=== PATIENT | female | born 1990 | race Caucasian/White ===

== ENCOUNTER 2016-06-25 23:13 | Outpatient (CLI) | payer OTHER ==
[~2016-06-25] VITALS: Ht 172.7 cm; Wt 84.1 kg
[~2016-06-25 23:13] MED LIST: NORCO 325 MG-51 TAB PO; NORCO 325 MG-7.1 TAB PO
[2016-06-25 23:24] VITALS: BP 115/62; PULSE 11; TEMP 98.3
[2016-06-25] MEDS ORDERED: PRENATAL PO (23:37)
[2016-06-25] MEDS ORDERED: ULTRAM 50MG TAB50 MG PO (23:39)
[2016-06-25] MEDS ORDERED: PREVACID24HROTC PO (23:39)
[2016-06-26] VITALS: BP 115/62; PULSE 111; TEMP 98.3
[2016-06-26 00:29] LABS: PH 6 (5-8); URINE APPEARANCE Hazy; URINE BACTERIA None Seen /hpf; URINE BILIRUBIN Negative (NEGATIVE); URINE BLOOD Negative (NEGATIVE); URINE COLOR Yellow; URINE GLUCOSE Negative (NEGATIVE); URINE KETONE Negative (NEGATIVE); URINE RBC 0-2 /hpf; URINE UROBILINOGEN Negative (NEGATIVE)
[2016-06-26 01:03] VITALS: BP 105/57; PULSE 80
[2016-06-26] MEDS ORDERED: CEPHALEXIN500 M1 PO (01:12)
== END 2016-06-26 01:25 | disposition home or self-care (01) ==
LOC: LDRO 23:13
PROVIDERS: Obstetrics & Gynecology
DX: O47.1 False labor at or after 37 completed weeks of gestation (principal); Z3A.37 37 weeks gestation of pregnancy
CPT/HCPCS: J0696

== ENCOUNTER 2016-07-08 07:18 | Inpatient (IN) | payer OTHER ==
[~2016-07-08] VITALS: Ht 172.7 cm; Wt 86.8 kg
[2016-07-08] VITALS (28 sets, daily range): BP systolic 106–131; BP diastolic 57–78; PULSE 53–96; TEMP 98.1–98.2
[~2016-07-08 07:18] MED LIST changes: +CEPHALEXIN500 M1 PO; +PRENATAL PO; +PREVACID24HROTC PO; +ULTRAM 50MG TAB50 MG PO
[2016-07-08 08:28] LABS: BASO % 0.2 % (0.0-2.0); EOS % 0.2 % (0-4.0); GRAN # 7.6 (1.4-6.5); GRAN % 62.9 % (42.2-75.2); LYMPH # 3.5 (1.2-3.4); LYMPH % 28.7 % (20.0-51.0); MEAN CELL VOLUME 81 fl (80.0-100.0); MEAN CORPUSCULAR HGB CONC 32 g/dl (33.0-37.0); MEAN PLATELET VOLUME 11.9 fl (7.4-10.4); MONO # 0.9 (0.1-0.6); MONO % 7.7 % (1.7-9.3); PLATELET COUNT 197 K/mm3 (130-400); RED BLOOD COUNT 4.08 M/mm3 (4.10-5.30); REDCELL DISTRIBUTION WIDTH-CV 13.6 % (11.5-14.5); WHITE BLOOD COUNT 12.2 K/mm3 (4.8-10.8)
[2016-07-08 08:29] LABS: HEMOGLOBIN 10.7 g/dl (12.5-16.0); MEAN CORPUSCULAR HEMOGLOBIN 26 pg (27.0-31.0)
[2016-07-09 00:18] VITALS: BP 110/68; PULSE 78; TEMP 98.3
[2016-07-09 04:00] VITALS: BP 123/63; PULSE 78; TEMP 98.4
[2016-07-09 07:50] VITALS: BP 112/66; PULSE 91; TEMP 98.1
[2016-07-09 16:40] VITALS: BP 120/49; PULSE 90; TEMP 98.2
[2016-07-09 21:00] VITALS: BP 135/62; PULSE 75; TEMP 98
[2016-07-10 08:01] VITALS: BP 121/64; PULSE 64; TEMP 98.4
[2016-07-10] MEDS ORDERED: PERCOCET 325 MG1 TA2 PO (08:13)
[2016-07-10] MEDS ORDERED: IBU800 M1 PO (08:13)
[2016-07-10 15:30] VITALS: BP 135/72; PULSE 79; TEMP 98.5
== END 2016-07-10 19:45 | disposition home or self-care (01) | DRG 775 ==
LOC: LDR 07:18 → OB 13:02 → EDSTATUS 07-15 06:56 → LDRO 07-15 11:11
PROVIDERS: Obstetrics & Gynecology
PROC: 10E0XZZ Delivery of Products of Conception, External Approach (ICD-10-PCS; principal; 2016-07-08)
PROC: 3E033VJ Introduction of Other Hormone into Peripheral Vein, Percutaneous Approach (ICD-10-PCS; 2016-07-08)
DX: O99.334 Smoking (tobacco) complicating childbirth (principal); F17.210 Nicotine dependence, cigarettes, uncomplicated; Z3A.39 39 weeks gestation of pregnancy; Z37.0 Single live birth
CPT/HCPCS: J2590; J2795; J7120

== ENCOUNTER 2016-07-17 13:12 | Emergency (ER) | payer OTHER ==
[~2016-07-17] VITALS: Ht 170.2 cm; Wt 80.5 kg
[~2016-07-17 13:12] MED LIST changes: +IBU800 M1 PO; +PERCOCET 325 MG1 TA2 PO
[2016-07-17 13:14] VITALS: TEMP 98.3
[2016-07-17] MEDS ORDERED: ZOFRAN8 MG PO (13:24)
[2016-07-17 14:10] LABS: BASO % 0.2 % (0.0-2.0); EOS # 0.1 (0.0-0.7); EOS % 0.4 % (0-4.0); GRAN # 7.9 (1.4-6.5); HEMATOCRIT 41.5 % (37.0-47.0); LYMPH # 2.7 (1.2-3.4); LYMPH % 23.9 % (20.0-51.0); MEAN CELL VOLUME 82 fl (80.0-100.0); MEAN CORPUSCULAR HEMOGLOBIN 26 pg (27.0-31.0); MEAN CORPUSCULAR HGB CONC 31 g/dl (33.0-37.0); MEAN PLATELET VOLUME 9.7 fl (7.4-10.4); MONO # 0.7 (0.1-0.6); MONO % 6.1 % (1.7-9.3); PLATELET COUNT 411 K/mm3 (130-400); RED BLOOD COUNT 5.07 M/mm3 (4.10-5.30); WHITE BLOOD COUNT 11.4 K/mm3 (4.8-10.8)
[2016-07-17 14:30] LABS: ADJUSTED CALCIUM 9.6 mg/dL (8.4-10.2); ALBUMIN 4.3 gm/dL (3.5-5.0); BILIRUBIN,TOTAL 0.6 mg/dL (0.0-1.0); C-REACTIVE PROTEIN 1.8 mg/dL (0.0-0.9); CALCIUM 9.8 mg/dL (8.4-10.2); CREATININE, serum 0.52 mg/dL (0.52-1.25); POTASSIUM 3.9 mmol/L (3.4-5.0); TOTAL PROTEIN 8.1 gm/dL (6.4-8.2)
[2016-07-17] MEDS ORDERED: PERCOCET 325 MG1 TA2 PO (15:45)
[2016-07-17 15:56] VITALS: BP 119/66; PULSE 90
== END 2016-07-17 15:56 | disposition home or self-care (01) ==
LOC: COL.ER 13:12
PROVIDERS: Nurse Practitioner
DX: O99.89 Other specified diseases and conditions complicating pregnancy, childbirth and the puerperium (principal); R10.2 Pelvic and perineal pain; M54.9 Dorsalgia, unspecified; G89.29 Other chronic pain

== ENCOUNTER 2016-10-07 18:01 | Emergency (ER) | payer OTHER ==
[~2016-10-07] VITALS: Ht 170.2 cm; Wt 79.5 kg
[~2016-10-07 18:01] MED LIST changes: +ZOFRAN8 MG PO
[2016-10-07 18:09] VITALS: TEMP 98.5
[2016-10-07] MEDS ORDERED: PERCOCET 325 MG1 TA2 PO (18:34)
[2016-10-07 18:59] VITALS: BP 114/97; PULSE 90
== END 2016-10-07 19:00 | disposition home or self-care (01) ==
LOC: COL.ER 18:01
DX: M54.5 Low back pain (principal)
CPT/HCPCS: J2270

== ENCOUNTER 2016-10-09 15:11 | Emergency (ER) | payer OTHER ==
[~2016-10-09] VITALS: Ht 170.2 cm; Wt 81.8 kg
[2016-10-09 15:13] VITALS: BP 120/65; TEMP 98.8
[2016-10-09] MEDS ORDERED: ROBAXIN 75750 MG/TAB PO (16:51)
[2016-10-09 17:21] VITALS: PULSE 76
== END 2016-10-09 17:23 | disposition home or self-care (01) ==
LOC: COL.ER 15:11
DX: M54.42 Lumbago with sciatica, left side (principal); G89.29 Other chronic pain
CPT/HCPCS: J1040

== ENCOUNTER 2016-11-03 12:46 | Emergency (ER) | payer OTHER ==
[~2016-11-03] VITALS: Ht 170.2 cm; Wt 79.5 kg
[~2016-11-03 12:46] MED LIST changes: +ROBAXIN 75750 MG/TAB PO
[2016-11-03 12:51] VITALS: TEMP 98
[2016-11-03 13:14] LABS: PH 7 (5-8); SQUAMOUS EPITHELIAL 0-2 /hpf; URINE APPEARANCE Hazy; URINE BACTERIA None Seen /hpf; URINE BILIRUBIN Negative (NEGATIVE); URINE BLOOD 3+ (NEGATIVE); URINE COLOR Yellow; URINE GLUCOSE Negative (NEGATIVE); URINE KETONE Negative (NEGATIVE); URINE RBC >50 /hpf; URINE UROBILINOGEN Negative (NEGATIVE)
[2016-11-03 13:15] LABS: URINE WBC 20-50 /hpf
[2016-11-03 13:32] LABS: BASO % 0.4 % (0.0-2.0); EOS # 0.1 (0.0-0.7); EOS % 0.5 % (0-4.0); GRAN # 5.8 (1.4-6.5); GRAN % 62.2 % (42.2-75.2); HEMATOCRIT 37.1 % (37.0-47.0); HEMOGLOBIN 11.6 g/dl (12.5-16.0); LYMPH # 2.7 (1.2-3.4); LYMPH % 29.2 % (20.0-51.0); MEAN CELL VOLUME 82 fl (80.0-100.0); MEAN CORPUSCULAR HEMOGLOBIN 26 pg (27.0-31.0); MEAN CORPUSCULAR HGB CONC 31 g/dl (33.0-37.0); MEAN PLATELET VOLUME 9.8 fl (7.4-10.4); MONO # 0.7 (0.1-0.6); MONO % 7.4 % (1.7-9.3); PLATELET COUNT 334 K/mm3 (130-400); RED BLOOD COUNT 4.52 M/mm3 (4.10-5.30); REDCELL DISTRIBUTION WIDTH-CV 15.2 % (11.5-14.5); WHITE BLOOD COUNT 9.4 K/mm3 (4.8-10.8)
[2016-11-03 13:43] LABS: ADJUSTED CALCIUM 9.3 mg/dL (8.4-10.2); ALBUMIN 4.4 gm/dL (3.5-5.0); BILIRUBIN,TOTAL 0.3 mg/dL (0.0-1.0); CALCIUM 9.6 mg/dL (8.4-10.2); CREATININE, serum 0.55 mg/dL (0.52-1.25); POTASSIUM 3.8 mmol/L (3.4-5.0); TOTAL PROTEIN 7.7 gm/dL (6.4-8.2)
[2016-11-03] MEDS ORDERED: BACTRIM DS 8001 TAB PO (15:32)
[2016-11-03] MEDS ORDERED: PYRIDIUM200 M1 PO (15:32)
[2016-11-03] MEDS ORDERED: ZOFRAN 4MG T4 MG/TAB PO (15:32)
[2016-11-03] MEDS ORDERED: PERCOCET 325 MG1 TA2 PO (15:32)
[2016-11-03 15:59] VITALS: BP 120/70; PULSE 56
== END 2016-11-03 16:14 | disposition home or self-care (01) ==
LOC: COL.ER 12:46
PROVIDERS: Nurse Practitioner
DX: N12 Tubulo-interstitial nephritis, not specified as acute or chronic (principal); F17.210 Nicotine dependence, cigarettes, uncomplicated; Z87.442 Personal history of urinary calculi; Z32.02 Encounter for pregnancy test, result negative
CPT/HCPCS: J0696; J1170; J1885; J2405; J3010; J7030; Q9967

== ENCOUNTER 2016-11-05 13:44 | Emergency (ER) | payer OTHER ==
[~2016-11-05] VITALS: Ht 170.2 cm; Wt 80.1 kg
[~2016-11-05 13:44] MED LIST changes: +BACTRIM DS 8001 TAB PO; +PYRIDIUM200 M1 PO; +ZOFRAN 4MG T4 MG/TAB PO
[2016-11-05 13:46] VITALS: BP 110/74; TEMP 98.3
[2016-11-05 14:52] LABS: BASO % 0.3 % (0.0-2.0); EOS # 0.1 (0.0-0.7); EOS % 0.6 % (0-4.0); GRAN # 6.8 (1.4-6.5); GRAN % 68.2 % (42.2-75.2); HEMATOCRIT 40.3 % (37.0-47.0); HEMOGLOBIN 12.5 g/dl (12.5-16.0); LYMPH # 2.5 (1.2-3.4); LYMPH % 25.5 % (20.0-51.0); MEAN CELL VOLUME 83 fl (80.0-100.0); MEAN CORPUSCULAR HEMOGLOBIN 26 pg (27.0-31.0); MEAN CORPUSCULAR HGB CONC 31 g/dl (33.0-37.0); MEAN PLATELET VOLUME 9.8 fl (7.4-10.4); MONO # 0.5 (0.1-0.6); MONO % 5.1 % (1.7-9.3); PLATELET COUNT 305 K/mm3 (130-400); RED BLOOD COUNT 4.87 M/mm3 (4.10-5.30); REDCELL DISTRIBUTION WIDTH-CV 15.3 % (11.5-14.5); WHITE BLOOD COUNT 9.9 K/mm3 (4.8-10.8)
[2016-11-05 14:54] LABS: PH 6 (5-8); SQUAMOUS EPITHELIAL 0-2 /hpf; URINE APPEARANCE Clear; URINE BACTERIA None Seen /hpf; URINE BILIRUBIN Negative (NEGATIVE); URINE BLOOD 2+ (NEGATIVE); URINE COLOR Straw; URINE GLUCOSE Negative (NEGATIVE); URINE KETONE Negative (NEGATIVE); URINE RBC 0-2 /hpf; URINE UROBILINOGEN Negative (NEGATIVE); URINE WBC 0-2 /hpf
[2016-11-05 15:05] LABS: ADJUSTED CALCIUM 9.2 mg/dL (8.4-10.2); ALBUMIN 4.7 gm/dL (3.5-5.0); BILIRUBIN,TOTAL 0.5 mg/dL (0.0-1.0); CALCIUM 9.8 mg/dL (8.4-10.2); CREATININE, serum 0.55 mg/dL (0.52-1.25); POTASSIUM 4.3 mmol/L (3.4-5.0); TOTAL PROTEIN 8.3 gm/dL (6.4-8.2)
[2016-11-05 15:07] LABS: C-REACTIVE PROTEIN 0.5 mg/dL (0.0-0.9)
[2016-11-05 16:28] VITALS: PULSE 57
== END 2016-11-05 16:29 | disposition home or self-care (01) ==
LOC: COL.ER 13:44
PROVIDERS: Family Medicine
DX: R10.31 Right lower quadrant pain (principal); Z87.891 Personal history of nicotine dependence
CPT/HCPCS: J2270; J2405; J3010; J7030; Q9967

== ENCOUNTER 2016-11-10 15:21 | Emergency (ER) | payer OTHER ==
[~2016-11-10] VITALS: Ht 172.7 cm; Wt 79.5 kg
[2016-11-10 15:28] VITALS: TEMP 98.8
[2016-11-10 16:32] LABS: BASO % 0.4 % (0.0-2.0); EOS # 0.1 (0.0-0.7); EOS % 0.5 % (0-4.0); GRAN # 6.4 (1.4-6.5); GRAN % 57.9 % (42.2-75.2); HEMATOCRIT 41.6 % (37.0-47.0); HEMOGLOBIN 12.8 g/dl (12.5-16.0); LYMPH # 3.9 (1.2-3.4); LYMPH % 35.3 % (20.0-51.0); MEAN CELL VOLUME 84 fl (80.0-100.0); MEAN CORPUSCULAR HEMOGLOBIN 26 pg (27.0-31.0); MEAN CORPUSCULAR HGB CONC 31 g/dl (33.0-37.0); MEAN PLATELET VOLUME 9.8 fl (7.4-10.4); MONO # 0.6 (0.1-0.6); MONO % 5.6 % (1.7-9.3); PLATELET COUNT 364 K/mm3 (130-400); RED BLOOD COUNT 4.96 M/mm3 (4.10-5.30); REDCELL DISTRIBUTION WIDTH-CV 15.5 % (11.5-14.5)
[2016-11-10 16:41] LABS: ADJUSTED CALCIUM 9.3 mg/dL (8.4-10.2); ALBUMIN 4.9 gm/dL (3.5-5.0); BILIRUBIN,TOTAL 0.4 mg/dL (0.0-1.0); C-REACTIVE PROTEIN 0.7 mg/dL (0.0-0.9); CREATININE, serum 0.69 mg/dL (0.52-1.25); POTASSIUM 3.8 mmol/L (3.4-5.0); TOTAL PROTEIN 8.7 gm/dL (6.4-8.2)
[2016-11-10] MEDS ORDERED: ZOFRAN ODT4 MG PO (17:15)
[2016-11-10] MEDS ORDERED: ULTRAM 50MG TAB50 MG PO (17:15)
[2016-11-10 17:51] VITALS: BP 120/72; PULSE 62
== END 2016-11-10 17:52 | disposition home or self-care (01) ==
LOC: COL.ER 15:21
PROVIDERS: Emergency Medicine
DX: R10.9 Unspecified abdominal pain (principal); F17.210 Nicotine dependence, cigarettes, uncomplicated
CPT/HCPCS: J1170; J2405; J2550; J7030

== ENCOUNTER 2016-12-30 12:30 | Emergency (ER) | payer OTHER ==
[~2016-12-30] VITALS: Ht 172.7 cm; Wt 79.5 kg
[~2016-12-30 12:30] MED LIST changes: +ZOFRAN ODT4 MG PO
[2016-12-30 12:33] VITALS: BP 136/65; TEMP 99
[2016-12-30 13:11] LABS: COLLECTION METHOD CLEAN CATCH
[2016-12-30 13:39] LABS: MUCOUS Present /lpf; PH 5 (5-8); URINE APPEARANCE Cloudy; URINE BACTERIA Rare /hpf; URINE BILIRUBIN Negative (NEGATIVE); URINE BLOOD 3+ (NEGATIVE); URINE COLOR Yellow; URINE GLUCOSE Negative (NEGATIVE); URINE KETONE Negative (NEGATIVE); URINE LEUKOCYTE ESTERASE 3+ (NEGATIVE); URINE PROTEIN(semi-quant) 2+ (NEGATIVE); URINE RBC >50 /hpf; URINE UROBILINOGEN Negative (NEGATIVE)
[2016-12-30 13:40] LABS: URINE WBC >50 /hpf
[2016-12-30 14:13] LABS: BASO % 0.3 % (0.0-2.0); EOS % 0.3 % (0-4.0); GRAN # 10.1 (1.4-6.5); GRAN % 72.3 % (42.2-75.2); HEMATOCRIT 41.7 % (37.0-47.0); HEMOGLOBIN 12.8 g/dl (12.5-16.0); LYMPH # 2.7 (1.2-3.4); LYMPH % 19.4 % (20.0-51.0); MEAN CELL VOLUME 86 fl (80.0-100.0); MEAN CORPUSCULAR HEMOGLOBIN 26 pg (27.0-31.0); MEAN CORPUSCULAR HGB CONC 31 g/dl (33.0-37.0); MEAN PLATELET VOLUME 10.3 fl (7.4-10.4); MONO % 7.3 % (1.7-9.3); PLATELET COUNT 339 K/mm3 (130-400); RED BLOOD COUNT 4.88 M/mm3 (4.10-5.30)
[2016-12-30 14:24] LABS: ADJUSTED CALCIUM 9.9 mg/dL (8.4-10.2); ALBUMIN 4.3 gm/dL (3.5-5.0); BILIRUBIN,TOTAL 0.4 mg/dL (0.0-1.0); CALCIUM 10.1 mg/dL (8.4-10.2); CREATININE, serum 0.77 mg/dL (0.52-1.25); POTASSIUM 3.9 mmol/L (3.4-5.0); TOTAL PROTEIN 7.6 gm/dL (6.4-8.2)
[2016-12-30] MEDS ORDERED: PYRIDIUM200 M1 PO (14:36)
[2016-12-30 14:50] VITALS: PULSE 90
[2016-12-30] MEDS ORDERED: CIPRO 500MG TA500 MG PO (16:01)
== END 2016-12-30 14:51 | disposition home or self-care (01) ==
LOC: COL.ER 12:30
PROVIDERS: Physician Assistant Medical
DX: N39.0 Urinary tract infection, site not specified (principal); N12 Tubulo-interstitial nephritis, not specified as acute or chronic; F17.210 Nicotine dependence, cigarettes, uncomplicated; Z32.02 Encounter for pregnancy test, result negative
CPT/HCPCS: J0696; J7030

== ENCOUNTER 2017-01-01 11:28 | Emergency (ER) | payer OTHER ==
[~2017-01-01] VITALS: Ht 172.7 cm; Wt 79.5 kg
[~2017-01-01 11:28] MED LIST changes: +CIPRO 500MG TA500 MG PO
[2017-01-01 11:44] VITALS: BP 122/61; TEMP 98.9
[2017-01-01] MEDS ORDERED: ZANAFLEX CAPSULE2 MG PO (13:02)
[2017-01-01 13:24] VITALS: PULSE 88
[2017-01-01] MEDS ORDERED: CEFTIN500 MG PO (15:18)
== END 2017-01-01 13:24 | disposition home or self-care (01) ==
LOC: COL.ER 11:28
DX: S39.012A Strain of muscle, fascia and tendon of lower back, initial encounter (principal); N39.0 Urinary tract infection, site not specified; X50.0XXA Overexertion from strenuous movement or load, initial encounter
CPT/HCPCS: J2360

== ENCOUNTER 2017-01-21 20:10 | Emergency (ER) | payer OTHER ==
[~2017-01-21] VITALS: Ht 170.2 cm; Wt 87.3 kg
[~2017-01-21 20:10] MED LIST changes: +CEFTIN500 MG PO; +ZANAFLEX CAPSULE2 MG PO
[2017-01-21 20:14] VITALS: BP 123/82; TEMP 98.9
[2017-01-21 21:18] VITALS: PULSE 82
== END 2017-01-21 21:24 | disposition home or self-care (01) ==
LOC: COL.ER 20:10
DX: S50.12XA Contusion of left forearm, initial encounter (principal); W19.XXXA Unspecified fall, initial encounter; Y92.009 Unspecified place in unspecified non-institutional (private) residence as the place of occurrence of the external cause

== ENCOUNTER 2017-08-01 15:57 | Emergency (ER) | payer OTHER ==
[~2017-08-01] VITALS: Ht 172.7 cm; Wt 81.8 kg
[2017-08-01 16:00] VITALS: BP 120/51; TEMP 97.8
[2017-08-01] MEDS ORDERED: PREDNISONE20 MG PO (19:36)
[2017-08-01] MEDS ORDERED: NORCO 325 MG-51 TAB PO (19:36)
[2017-08-01] MEDS ORDERED: FLEXERIL 1010 MG/TAB PO (19:36)
[2017-08-01 20:01] VITALS: PULSE 88
== END 2017-08-01 19:58 | disposition home or self-care (01) ==
LOC: COL.ER 15:57
DX: M54.16 Radiculopathy, lumbar region (principal); F17.210 Nicotine dependence, cigarettes, uncomplicated
CPT/HCPCS: J3010; J7512

== ENCOUNTER 2017-08-16 | Emergency (ER) | payer OTHER ==
[~2017-08-16] MED LIST changes: +FLEXERIL 1010 MG/TAB PO; +PREDNISONE20 MG PO
[2017-08-16 00:13] VITALS: BP 142/64; TEMP 98.3
== END 2017-08-16 00:41 | disposition left against medical advice (07) ==
LOC: COL.ER
DX: M54.5 Low back pain (principal)

== ENCOUNTER 2017-12-03 19:08 | Emergency (ER) | payer OTHER ==
[~2017-12-03] VITALS: Ht 172.7 cm; Wt 81.8 kg
[~2017-12-03 19:08] MED LIST changes: +DOXYCYCLINE HY100 MG PO; +FLAGYL500 MG PO
[2017-12-03 19:10] VITALS: TEMP 98.6
[2017-12-03] MEDS ORDERED: PERCOCET 325 MG1 TA2 PO (20:04)
[2017-12-03 20:32] VITALS: BP 126/80; PULSE 98
== END 2017-12-03 20:33 | disposition home or self-care (01) ==
LOC: COL.ER 19:08
DX: K02.9 Dental caries, unspecified (principal); F17.210 Nicotine dependence, cigarettes, uncomplicated
CPT/HCPCS: J0561

== ENCOUNTER 2018-02-13 23:19 | Emergency (ER) | payer OTHER ==
[~2018-02-13] VITALS: Ht 172.7 cm; Wt 81.8 kg
[2018-02-13 23:22] VITALS: BP 126/35; TEMP 96.8
[2018-02-14] MEDS ORDERED: IBU400 MG PO (00:01)
[2018-02-14 00:48] VITALS: PULSE 110
== END 2018-02-14 00:51 | disposition home or self-care (01) ==
LOC: COL.ER 23:19
DX: S80.12XA Contusion of left lower leg, initial encounter (principal); W10.9XXA Fall (on) (from) unspecified stairs and steps, initial encounter

== ENCOUNTER 2018-03-25 21:32 | Emergency (ER) | payer SELFPAY ==
[~2018-03-25] VITALS: Ht 172.7 cm; Wt 81.8 kg
[~2018-03-25 21:32] MED LIST changes: +IBU400 MG PO
[2018-03-25 21:38] VITALS: BP 148/79; TEMP 98.1
[2018-03-25 21:53] LABS: COLLECTION METHOD CLEAN CATCH
[2018-03-25 22:00] LABS: PH 6 (5-8); SQUAMOUS EPITHELIAL 0-2 /hpf; URINE APPEARANCE Hazy; URINE BACTERIA None Seen /hpf; URINE BILIRUBIN Negative (NEGATIVE); URINE BLOOD 2+ (NEGATIVE); URINE COLOR Straw; URINE GLUCOSE Negative (NEGATIVE); URINE KETONE Negative (NEGATIVE); URINE LEUKOCYTE ESTERASE 1+ (NEGATIVE); URINE NITRATE Negative (NEGATIVE); URINE PROTEIN(semi-quant) Negative (NEGATIVE); URINE RBC 0-2 /hpf; URINE UROBILINOGEN Negative (NEGATIVE)
[2018-03-25 22:21] LABS: BASO # 0.1 (0.0-0.2); BASO % 0.4 % (0.0-2.0); EOS # 0.2 (0.0-0.7); EOS % 1.7 % (0-4.0); GRAN # 6.3 (1.4-6.5); GRAN % 55.9 % (42.2-75.2); HEMATOCRIT 42.7 % (37.0-47.0); HEMOGLOBIN 14.2 g/dl (12.5-16.0); LYMPH # 3.8 (1.2-3.4); LYMPH % 33.7 % (20.0-51.0); MEAN CELL VOLUME 92 fl (80.0-100.0); MEAN CORPUSCULAR HEMOGLOBIN 31 pg (27.0-31.0); MEAN CORPUSCULAR HGB CONC 33 g/dl (33.0-37.0); MEAN PLATELET VOLUME 9.7 fl (7.4-10.4); MONO # 0.9 (0.1-0.6); MONO % 7.9 % (1.7-9.3); PLATELET COUNT 309 K/mm3 (130-400); RED BLOOD COUNT 4.64 M/mm3 (4.10-5.30); REDCELL DISTRIBUTION WIDTH-CV 13.2 % (11.5-14.5)
[2018-03-25 22:31] LABS: ALBUMIN 4.5 gm/dL (3.5-5.0); BILIRUBIN,TOTAL 0.5 mg/dL (0.0-1.0); C-REACTIVE PROTEIN 1.8 mg/dL (0.0-0.9); CALCIUM 9.9 mg/dL (8.4-10.2); CREATININE, serum 0.49 mg/dL (0.52-1.25); TOTAL PROTEIN 7.9 gm/dL (6.4-8.2)
[2018-03-25 22:33] LABS: POTASSIUM 2.8 mmol/L (3.4-5.0)
[2018-03-25] MEDS ORDERED: FLEXERIL 1010 MG/TAB PO (22:54)
[2018-03-25] MEDS ORDERED: K-DUR 10 MEQ T10 MEQ PO (22:56)
[2018-03-25 23:15] VITALS: PULSE 87
== END 2018-03-25 23:15 | disposition home or self-care (01) ==
LOC: COL.ER 21:32
PROVIDERS: Emergency Medicine
DX: M54.5 Low back pain (principal); Z87.442 Personal history of urinary calculi
CPT/HCPCS: J0780; J1170; J1885; J7030

== ENCOUNTER 2018-04-23 17:40 | Emergency (ER) | payer SELFPAY ==
[~2018-04-23] VITALS: Ht 172.7 cm; Wt 81.8 kg
[~2018-04-23 17:40] MED LIST changes: +K-DUR 10 MEQ T10 MEQ PO
[2018-04-23 17:48] VITALS: BP 149/70; TEMP 98
[2018-04-23 19:32] VITALS: PULSE 109
== END 2018-04-23 19:34 | disposition home or self-care (01) ==
LOC: COL.ER 17:40
DX: S90.31XA Contusion of right foot, initial encounter (principal); Z88.5 Allergy status to narcotic agent; F17.210 Nicotine dependence, cigarettes, uncomplicated; W22.8XXA Striking against or struck by other objects, initial encounter; Y92.009 Unspecified place in unspecified non-institutional (private) residence as the place of occurrence of the external cause

== ENCOUNTER 2018-07-06 09:40 | Emergency (ER) | payer SELFPAY ==
[~2018-07-06] VITALS: Ht 172.7 cm; Wt 81.8 kg
[2018-07-06 09:52] VITALS: BP 137/69; PULSE 102; TEMP 97.6
== END 2018-07-06 10:45 | disposition left against medical advice (07) ==
LOC: COL.ER 09:40
DX: R04.0 Epistaxis (principal); Z87.442 Personal history of urinary calculi; Z88.5 Allergy status to narcotic agent

== ENCOUNTER 2019-01-16 08:03 | Emergency (ER) | payer SELFPAY ==
[~2019-01-16] VITALS: Ht 172.7 cm; Wt 89.1 kg
[2019-01-16 08:06] VITALS: TEMP 99.5
[2019-01-16] MEDS ORDERED: PRILOTC PO (08:09)
[2019-01-16 08:36] LABS: BASO # 0.1 (0.0-0.2); BASO % 0.3 % (0.0-2.0); EOS % 0.1 % (0-4.0); GRAN % 68.2 % (42.2-75.2); HEMATOCRIT 38.9 % (37.0-47.0); HEMOGLOBIN 13.2 g/dl (12.5-16.0); LYMPH # 3.1 (1.2-3.4); LYMPH % 20.7 % (20.0-51.0); MEAN CELL VOLUME 107 fl (80.0-100.0); MEAN CORPUSCULAR HEMOGLOBIN 36 pg (27.0-31.0); MEAN CORPUSCULAR HGB CONC 34 g/dl (33.0-37.0); MEAN PLATELET VOLUME 9.8 fl (7.4-10.4); MONO # 1.5 (0.1-0.6); MONO % 10.2 % (1.7-9.3); PLATELET COUNT 337 K/mm3 (130-400); RED BLOOD COUNT 3.65 M/mm3 (4.10-5.30); REDCELL DISTRIBUTION WIDTH-CV 16.3 % (11.5-14.5)
[2019-01-16 08:46] LABS: ALBUMIN 4.8 gm/dL (3.5-5.0); BILIRUBIN,TOTAL 1.6 mg/dL (0.0-1.0); CALCIUM 10.1 mg/dL (8.4-10.2); CREATININE, serum 0.48 (0.52-1.25)
[2019-01-16 08:49] LABS: POTASSIUM 2.6 mmol/L (3.4-5.0)
[2019-01-16] MEDS ORDERED: ZOFRAN ODT4 MG PO (11:19)
[2019-01-16] MEDS ORDERED: CARAFATE S1 GM/10 ML PO (11:19)
[2019-01-16] MEDS ORDERED: NORCO 325 MG-51 TAB PO (11:19)
[2019-01-16 11:38] VITALS: BP 1118/73; PULSE 84
== END 2019-01-16 11:38 | disposition home or self-care (01) ==
LOC: COL.ER 08:03
PROVIDERS: Physician Assistant
DX: K29.20 Alcoholic gastritis without bleeding (principal); K92.0 Hematemesis; F17.210 Nicotine dependence, cigarettes, uncomplicated; F10.20 Alcohol dependence, uncomplicated
CPT/HCPCS: C9113; J2405; J3480; J7030; Q9967

== ENCOUNTER 2019-01-27 00:40 | Emergency (ER) | payer SELFPAY ==
[~2019-01-27] VITALS: Ht 172.7 cm; Wt 88.6 kg
[~2019-01-27 00:40] MED LIST changes: +CARAFATE S1 GM/10 ML PO; +PRILOTC PO
[2019-01-27 00:47] VITALS: BP 125/86; TEMP 98.9
[2019-01-27] MEDS ORDERED: UROCIT-K 1010 MEQ PO (00:47)
[2019-01-27 01:58] VITALS: PULSE 108
== END 2019-01-27 01:58 | disposition home or self-care (01) ==
LOC: COL.ER 00:40
DX: S09.90XA Unspecified injury of head, initial encounter (principal); S93.401A Sprain of unspecified ligament of right ankle, initial encounter; F17.210 Nicotine dependence, cigarettes, uncomplicated; Z88.5 Allergy status to narcotic agent; W10.9XXA Fall (on) (from) unspecified stairs and steps, initial encounter

== ENCOUNTER 2019-01-29 23:08 | Emergency (ER) | payer SELFPAY ==
[~2019-01-29] VITALS: Ht 172.7 cm; Wt 88.6 kg
[~2019-01-29 23:08] MED LIST changes: +UROCIT-K 1010 MEQ PO
[2019-01-29 23:11] VITALS: BP 127/77; TEMP 97.4
[2019-01-29] MEDS ORDERED: ADVIL200 MG PO (23:27)
[2019-01-29 23:39] LABS: COLLECTION METHOD CLEAN CATCH
[2019-01-29 23:47] LABS: BASO % 0.4 % (0.0-2.0); EOS % 0.4 % (0-4.0); GRAN # 4.6 (1.4-6.5); GRAN % 50.5 % (42.2-75.2); HEMATOCRIT 34.7 % (37.0-47.0); HEMOGLOBIN 11.3 g/dl (12.5-16.0); LYMPH # 3.6 (1.2-3.4); LYMPH % 39.5 % (20.0-51.0); MEAN CELL VOLUME 106 fl (80.0-100.0); MEAN CORPUSCULAR HEMOGLOBIN 34 pg (27.0-31.0); MEAN CORPUSCULAR HGB CONC 33 g/dl (33.0-37.0); MEAN PLATELET VOLUME 9.8 fl (7.4-10.4); MONO # 0.8 (0.1-0.6); MONO % 8.9 % (1.7-9.3); PLATELET COUNT 323 K/mm3 (130-400); RED BLOOD COUNT 3.29 M/mm3 (4.10-5.30); REDCELL DISTRIBUTION WIDTH-CV 14.8 % (11.5-14.5)
[2019-01-29 23:48] LABS: MUCOUS Present /lpf; PH 7 (5-8); URINE APPEARANCE Hazy; URINE BACTERIA Occasional /hpf; URINE BILIRUBIN Negative (NEGATIVE); URINE BLOOD Negative (NEGATIVE); URINE COLOR Yellow; URINE GLUCOSE Negative (NEGATIVE); URINE KETONE Negative (NEGATIVE); URINE LEUKOCYTE ESTERASE 2+ (NEGATIVE); URINE NITRATE Negative (NEGATIVE); URINE PROTEIN(semi-quant) Negative (NEGATIVE); URINE UROBILINOGEN Negative (NEGATIVE)
[2019-01-29 23:57] LABS: ALBUMIN 3.8 gm/dL (3.5-5.0); BILIRUBIN,TOTAL 0.5 mg/dL (0.0-1.0); CALCIUM 9.1 mg/dL (8.4-10.2); CREATININE, serum 0.44 (0.52-1.25); TOTAL PROTEIN 7.2 gm/dL (6.4-8.2)
[2019-01-30 00:01] LABS: POTASSIUM 2.8 mmol/L (3.4-5.0)
[2019-01-30 00:38] LABS: MAGNESIUM 1.8 mg/dL (1.6-2.3)
[2019-01-30 01:10] LABS: THYROID STIMULATING HORMONE 2.59 uIU/mL (0.465-4.680)
[2019-01-30] MEDS ORDERED: NORCO 325 MG-51 TAB PO (01:15)
[2019-01-30 01:19] VITALS: PULSE 108
== END 2019-01-30 01:19 | disposition home or self-care (01) ==
LOC: COL.ER 23:08
PROVIDERS: Nurse Practitioner
DX: R60.0 Localized edema (principal); F17.210 Nicotine dependence, cigarettes, uncomplicated

== ENCOUNTER 2019-02-07 09:27 | Emergency (ER) | payer SELFPAY ==
[~2019-02-07] VITALS: Ht 172.7 cm; Wt 88.6 kg
[~2019-02-07 09:27] MED LIST changes: +ADVIL200 MG PO
[2019-02-07 09:37] VITALS: TEMP 96.1
[2019-02-07 10:27] LABS: BASO % 0.4 % (0.0-2.0); EOS % 0.5 % (0-4.0); GRAN # 5.1 (1.4-6.5); GRAN % 65.9 % (42.2-75.2); LYMPH # 1.9 (1.2-3.4); LYMPH % 24.3 % (20.0-51.0); MEAN CELL VOLUME 106 fl (80.0-100.0); MEAN CORPUSCULAR HEMOGLOBIN 36 pg (27.0-31.0); MEAN CORPUSCULAR HGB CONC 33 g/dl (33.0-37.0); MEAN PLATELET VOLUME 9.3 fl (7.4-10.4); MONO # 0.7 (0.1-0.6); MONO % 8.4 % (1.7-9.3); PLATELET COUNT 207 K/mm3 (130-400); REDCELL DISTRIBUTION WIDTH-CV 15.9 % (11.5-14.5)
[2019-02-07 10:30] LABS: HEMATOCRIT 32.9 % (37.0-47.0)
[2019-02-07] MEDS ORDERED: NEURONTIN300 MG/CAP PO (10:33)
[2019-02-07] MEDS ORDERED: FLEXERIL 1010 MG/TAB PO (10:33)
[2019-02-07 10:36] LABS: ALBUMIN 3.8 gm/dL (3.5-5.0); BILIRUBIN,TOTAL 1.6 mg/dL (0.0-1.0); CALCIUM 9.1 mg/dL (8.4-10.2); CREATININE, serum 0.37 (0.52-1.25); TOTAL PROTEIN 7.6 gm/dL (6.4-8.2)
[2019-02-07 10:55] LABS: POTASSIUM 2.6 mmol/L (3.4-5.0)
[2019-02-07] MEDS ORDERED: [UNRECOGNIZED DRUG - OTHER] PO (11:09)
[2019-02-07] MEDS ORDERED: K-TAB10 PO (11:16)
[2019-02-07 11:25] VITALS: BP 124/81
[2019-02-07 13:04] VITALS: PULSE 105
== END 2019-02-07 11:40 | disposition home or self-care (01) ==
LOC: COL.ER 09:27
PROVIDERS: Emergency Medicine
DX: E87.6 Hypokalemia (principal); R20.2 Paresthesia of skin; M79.604 Pain in right leg; M79.605 Pain in left leg

== ENCOUNTER 2019-02-25 16:45 | Inpatient (IN) | payer OTHER ==
[2019-02-25] VITALS (44 sets, daily range): BP systolic 109; BP diastolic 61; PULSE 99; TEMP 98.6; O2SAT 90–99
[~2019-02-25] VITALS: Ht 172.7 cm; Wt 100.1 kg
[~2019-02-25 16:45] MED LIST changes: +K-TAB10 PO; +NEURONTIN300 MG/CAP PO; -PRILOTC PO; +[UNRECOGNIZED DRUG - OTHER] PO
[2019-02-25] MEDS ORDERED: PRILOTC PO (17:15)
[2019-02-25 17:39] LABS: MEAN CELL VOLUME 104 fl (80.0-100.0); MEAN CORPUSCULAR HGB CONC 35 g/dl (33.0-37.0); MEAN PLATELET VOLUME 10.3 fl (7.4-10.4); PLATELET COUNT 293 K/mm3 (130-400); RED BLOOD COUNT 2.48 M/mm3 (4.10-5.30); REDCELL DISTRIBUTION WIDTH-CV 21.4 % (11.5-14.5)
[2019-02-25 17:40] LABS: HEMATOCRIT 25.7 % (37.0-47.0); MEAN CORPUSCULAR HEMOGLOBIN 36 pg (27.0-31.0)
[2019-02-25 17:50] LABS: ALANINE AMINOTRANSFERASE 96 U/L (9-52); ALBUMIN 4.2 gm/dL (3.5-5.0); ALKALINE PHOSPHATASE 143 U/L (50-136); ANION GAP 18 mmol/L (7-16); AST,SGOT 328 U/L (15-37); BILIRUBIN,TOTAL 8.8 mg/dL (0.0-1.0); BLOOD UREA NITROGEN 12 mg/dL (7-17); C-REACTIVE PROTEIN 7.5 mg/dL (0.0-0.9); CALCIUM 9.9 mg/dL (8.4-10.2); CARBON DIOXIDE 30 mmol/L (22-30); CREATININE, serum 0.48 (0.52-1.25); GLUCOSE 120 mg/dL (74-106); MAGNESIUM 2.5 mg/dL (1.6-2.3); PHOSPHOROUS 2.4 mg/dL (2.5-4.5); SODIUM 133 mmol/L (137-145); TOTAL PROTEIN 8.4 gm/dL (6.4-8.2)
[2019-02-25 18:02] LABS: ALCOHOL(ethanol),MEDICAL < 10 mg/dL; BILIRUBIN,DIRECT 7.1 mg/dL (0.0-0.4); CHLORIDE 86 mmol/L (98-107); POTASSIUM 2.1 mmol/L (3.4-5.0)
[2019-02-25 18:21] LABS: ANISOCYTOSIS 3+; BAND 1 % (0-10); LYMPHOCYTE 16 % (20.0-51.0); NEUTROPHILS 81 % (42.0-75.2); NUCLEATED RED BLOOD CELL 1 (0-6); PLATELET ESTIMATE NORMAL (NORMAL); TARGET CELLS 2+
[2019-02-25 19:02] LABS: COLLECTION METHOD CLEAN CATCH
[2019-02-25 19:16] LABS: INR 1.5 (0.8-3.0); PROTHROMBIN TIME 18.1 SECONDS (9.7-12.8)
[2019-02-25 19:18] LABS: LIPASE 84 U/L (23-300)
[2019-02-25 19:19] LABS: ACETAMINOPHEN < 10 ug/mL (10-30)
[2019-02-25 19:20] LABS: MUCOUS Present /lpf; PH 6 (5-8); SQUAMOUS EPITHELIAL 0-2 /hpf; URINE APPEARANCE Hazy; URINE BACTERIA Rare /hpf; URINE BILIRUBIN Positive (NEGATIVE); URINE BLOOD 2+ (NEGATIVE); URINE COLOR Amber; URINE GLUCOSE Negative (NEGATIVE); URINE KETONE Negative (NEGATIVE); URINE LEUKOCYTE ESTERASE 1+ (NEGATIVE); URINE NITRATE Negative (NEGATIVE); URINE PROTEIN(semi-quant) 1+ (NEGATIVE); URINE UROBILINOGEN >=4.0 mg/dL (NEGATIVE)
[2019-02-25 19:28] LABS: PARTIAL THROMBOPLASTIN TIME 37.1 SECONDS (26.0-37.0)
--- NOTE | 2019-02-25 22:35 | NUR ---
Report received from Bill in ED at 2200, patient arrived in unit at 2229 via stretcher. Patient able to move self to unit bed without diffuculty. IV infusing from ED. Patient pleasant and cooperative, significant other at bedside. Patient complaining of abdominal pain and nausea, provider notified.
[2019-02-26] VITALS (14 sets, daily range): BP systolic 108–124; BP diastolic 59–76; PULSE 97–108; TEMP 98.3–99.7; O2SAT 93–99
[2019-02-26] MEDS ORDERED: K-DUR 10 MEQ T10 MEQ PO (02:07)
--- NOTE | 2019-02-26 04:54 | NUR ---
Patient resting in bed with eyes closed. No complaints at this time. States she occasionally has abdominal cramping. Patient uses call light appropriately and both IV sites are infusing well. Will continue to monitor.
[2019-02-26 06:22] LABS: COLLECTION METHOD CLEAN CATCH
[2019-02-26 06:42] LABS: TRICYCLIC ANTIDEPRESS URINE NEGATIVE
[2019-02-26 06:59] LABS: PH 6 (5-8); URINE APPEARANCE Hazy; URINE BACTERIA Rare /hpf; URINE BILIRUBIN Positive (NEGATIVE); URINE BLOOD 2+ (NEGATIVE); URINE COLOR Amber; URINE GLUCOSE Negative (NEGATIVE); URINE KETONE Negative (NEGATIVE); URINE LEUKOCYTE ESTERASE 2+ (NEGATIVE); URINE NITRATE Negative (NEGATIVE); URINE PROTEIN(semi-quant) Negative (NEGATIVE)
[2019-02-26 07:00] LABS: SQUAMOUS EPITHELIAL 0-2 /hpf
--- NOTE | 2019-02-26 07:30 | NUR ---
Report received from LARS Garcia. Patient requests pain medication at this time. Care taken over.
[2019-02-26 07:47] LABS: MEAN CELL VOLUME 107 fl (80.0-100.0); MEAN CORPUSCULAR HGB CONC 34 g/dl (33.0-37.0); MEAN PLATELET VOLUME 10.5 fl (7.4-10.4); PLATELET COUNT 202 K/mm3 (130-400); RED BLOOD COUNT 2.01 M/mm3 (4.10-5.30); REDCELL DISTRIBUTION WIDTH-CV 22.1 % (11.5-14.5)
[2019-02-26 07:48] LABS: HEMATOCRIT 21.4 % (37.0-47.0); HEMOGLOBIN 7.2 g/dl (12.5-16.0); MEAN CORPUSCULAR HEMOGLOBIN 36 pg (27.0-31.0)
[2019-02-26 07:57] LABS: ALBUMIN 3.3 gm/dL (3.5-5.0); BILIRUBIN,TOTAL 7.1 mg/dL (0.0-1.0); CALCIUM 7.9 mg/dL (8.4-10.2); CREATININE, serum 0.35 (0.52-1.25); MAGNESIUM 2.4 mg/dL (1.6-2.3); PHOSPHOROUS 2.1 mg/dL (2.5-4.5); POTASSIUM 3.2 mmol/L (3.4-5.0); TOTAL PROTEIN 6.8 gm/dL (6.4-8.2)
[2019-02-26 07:58] LABS: INR 1.6 (0.8-3.0)
[2019-02-26 09:37] LABS: BAND 4 % (0-10); LYMPHOCYTE 9 % (20.0-51.0); NEUTROPHILS 87 % (42.0-75.2); PLATELET ESTIMATE NORMAL (NORMAL)
--- NOTE | 2019-02-26 11:47 | NUR ---
PATIENT CONTINUES TO COMPLAIN OF LEFT ABDOMINAL/FLANK PAIN AFTER MULTIPLE DOSES OF DILAUDID. OFFERED HEATING PAD, PATIENT REFUSED. PATIENT REPOSITIONS HERSELF FREQUENTLY. POSITIVE ENCOURAGEMENT AND EMOTIONAL SUPPORT GIVEN. DR. SHANNAN REDMOND ON UNIT AT THIS TIME. WILL UPDATE HIM WHEN HE GOES TO SEE PATIENT
--- NOTE | 2019-02-26 13:52 | NUR ---
Research Project Coordinator met with patient to discuss discharge planning. Patient lives in [place] with her boyfriend Tony (ph#[phone]) and their son. Patient reports her daughter from a previous relationship also lives with them part of the time. Patient sees Dr. Morgan for primary care at [facility] and obtains medications from [facility]. Patient does not use any DME and reports independence with ADLS. Patient met with Jamaal, Financial Counselor and it was found that patient still has active coverage from her ex-. Patient is still working to determine if she will continue under that coverage. SW encouraged patient to seek assistance from Jamaal if her coverage would be discontinued. Patient does not have Advance Directives in EMR. Patient expressed some interested in completing DPOA-HC, but did not want to do so at this time as she wanted to rest and have some time alone. SW to continue to follow as needed.
--- NOTE | 2019-02-26 16:35 | NUR ---
DR. CAMPBELL CALLED D/T PERSISTENT C/O PAIN FROM THIS PATIENT. HEATING PAD OBTAINED AND PROVIDED TO PATIENT. HE GIVES ONE TIME ORDER FOR 0.5 MG DILAUDID IV. WILL TRY THIS DOSE AND SEE HOW SHE DOES.
--- NOTE | 2019-02-26 19:29 | NUR ---
Report given to LARS Garcia at this time. Patient lying in bed. She has recently had pain medication given to her. Care turned over to Radha.
--- NOTE | 2019-02-26 21:54 | NUR ---
Patient complaining of hemmorhoid pain and bleeding, requested melissacks-aracely orders. Patient also complaining of itching, states she thinks it is from the narcotic since it happened with the last two doses she received. Notified Boo Rodriguez orders. Patient otherwise resting in bed, belongings within reach, uses call light appropriately, IV infusing well.
[2019-02-27] VITALS (8 sets, daily range): BP systolic 117–131; BP diastolic 57–81; PULSE 98–116; TEMP 97.5–98.4
--- NOTE | 2019-02-27 03:18 | NUR ---
Patient resting in bed, has had a restless night and ambulated around Express Unit x3 laps to see if it would help settle her. RAC IV site bothering patient so fluids switched to LAC, will continue to monitor but RAC saline locked at this time. Patient takes self to toilet without incident and is tolerating liquids well. Complaints of pain continue with only brief periods of relief with verbal scores of 4/10. Most commonly patient scores pain 7/10.
--- NOTE | 2019-02-27 07:10 | NUR ---
Report recieved from LARS Garcia. Patient participates. Currently rates pain 09/16. Will treat with PRN medication as reflected in MAY. MIVF infusing to uncomplicated LAC IV. Patient denies further needs. Care assumed.
[2019-02-27 07:41] LABS: MEAN CELL VOLUME 108 fl (80.0-100.0); MEAN CORPUSCULAR HGB CONC 34 g/dl (33.0-37.0); MEAN PLATELET VOLUME 9.9 fl (7.4-10.4); PLATELET COUNT 228 K/mm3 (130-400); RED BLOOD COUNT 1.86 M/mm3 (4.10-5.30); REDCELL DISTRIBUTION WIDTH-CV 22.3 % (11.5-14.5)
[2019-02-27 07:44] LABS: INR 1.2 (0.8-3.0); PROTHROMBIN TIME 13.6 SECONDS (9.7-12.8)
[2019-02-27 07:51] LABS: ALBUMIN 3.2 gm/dL (3.5-5.0); BILIRUBIN,TOTAL 8.1 mg/dL (0.0-1.0); CALCIUM 8.1 mg/dL (8.4-10.2); CREATININE, serum 0.34 (0.52-1.25); TOTAL PROTEIN 6.6 gm/dL (6.4-8.2)
[2019-02-27 07:55] LABS: IRON,SERUM 53 ug/dL (35-150)
[2019-02-27 07:57] LABS: HEMOGLOBIN 6.8 g/dl (12.5-16.0); MEAN CORPUSCULAR HEMOGLOBIN 37 pg (27.0-31.0); POTASSIUM 2.7 mmol/L (3.4-5.0)
[2019-02-27 08:04] LABS: TOTAL IRON BINDING CAPACITY 206 ug/dL (265-497)
--- NOTE | 2019-02-27 08:06 | NUR ---
Dr. Mazariegos called with critical hgb and potassium. TORB as entered. Care ongoing.
[2019-02-27 08:55] LABS: BAND 4 % (0-10); LYMPHOCYTE 8 % (20.0-51.0); NEUTROPHILS 87 % (42.0-75.2); NUCLEATED RED BLOOD CELL 2 (0-6); PLATELET ESTIMATE NORMAL (NORMAL)
[2019-02-27 08:56] LABS: ANISOCYTOSIS 2+; HYPOCHROMIA 1+; POLYCHROMASIA 1+; TARGET CELLS 2+
--- NOTE | 2019-02-27 09:07 | NUR ---
Dr. Palmer called regarding patient's continued lack of pain control. TORB for one time additional dose of dilauded as documented. Care ongoing.
--- NOTE | 2019-02-27 10:15 | NUR ---
Dr. Mazariegos rounds at this time. Orders as entered CPOE. Care ongoing.
--- NOTE | 2019-02-27 12:57 | NUR ---
Dr. Palmer rounds at this time. No new orders recieved.
--- NOTE | 2019-02-27 14:01 | NUR ---
Report called to LARS Munoz.
[2019-02-27 15:32] LABS: HEMOGLOBIN 7.6 g/dl (12.5-16.0)
[2019-02-27 18:51] LABS: FOLATE (FOLIC ACID) 3.3 ng/mL (7.0-31.4)
[2019-02-28] VITALS (9 sets, daily range): BP systolic 108–142; BP diastolic 61–89; PULSE 107–126; TEMP 98.2–99.1
--- NOTE | 2019-02-28 01:58 | NUR ---
Patient has had a hard time resting this shift. Requests pain medication as often as she can have it (roughly every 2 hours), and states pain is "pretty bad" to her abdomen and her back. Patient had an episode of diarrhea and stated she couldn't get the collection hat in place to obtain a specimen. States she will attempt for her next stool. Noted to have yellow sclera. Abdomen firm and distended. Noted to have 1+ pitting edema to bilateral feet. Education provided on elevation to assist in reducing swelling. Lungs clear. Patient educated on detox protocol. Continues to be tachycardic, Jennifer Casillas APRN, aware. Scoring 3 on Detox protocol. Will continue to monitor patient.
[2019-02-28 07:32] LABS: MEAN CELL VOLUME 110 fl (80.0-100.0); MEAN CORPUSCULAR HGB CONC 32 g/dl (33.0-37.0); MEAN PLATELET VOLUME 10.1 fl (7.4-10.4); PLATELET COUNT 232 K/mm3 (130-400); RED BLOOD COUNT 1.86 M/mm3 (4.10-5.30); REDCELL DISTRIBUTION WIDTH-CV 22.9 % (11.5-14.5)
[2019-02-28 07:45] LABS: BILIRUBIN,TOTAL 7.1 mg/dL (0.0-1.0); CALCIUM 8.2 mg/dL (8.4-10.2); CREATININE, serum 0.32 (0.52-1.25); TOTAL PROTEIN 6.2 gm/dL (6.4-8.2)
[2019-02-28 07:52] LABS: HEMATOCRIT 20.5 % (37.0-47.0); HEMOGLOBIN 6.6 g/dl (12.5-16.0); MEAN CORPUSCULAR HEMOGLOBIN 35 pg (27.0-31.0)
[2019-02-28 08:07] LABS: INR 1.1 (0.8-3.0); PROTHROMBIN TIME 13.3 SECONDS (9.7-12.8)
[2019-02-28 08:58] LABS: ANISOCYTOSIS 3+; BAND 7 % (0-10); HYPOCHROMIA 2+; LYMPHOCYTE 20 % (20.0-51.0); METAMYELOCYTE 1 % (0-0); MYELOCYTE 1 % (0-0); NEUTROPHILS 65 % (42.0-75.2); NUCLEATED RED BLOOD CELL 2 (0-6); PLATELET ESTIMATE NORMAL (NORMAL); TARGET CELLS 2+
[2019-02-28 08:59] LABS: POLYCHROMASIA 1+
--- NOTE | 2019-02-28 09:26 | NUR ---
Patient resting in bed. Nurse at bedside for Vit K administration per protocol, mix by pharmacy. Patient Critical lab results of H&H 6.[address] Vasquez-who ordered one unit blood, but wanted to check with GI who wanted blood transfusion held & rechek H&H this afternoon. Blood held & will recheck H&H in afternoon. K+ per protocol order 3.0. Patient has minimal appetite, but tolerating liquids well. tele on, elevated HR. Will hi.
[2019-02-28 17:15] LABS: HEMATOCRIT 21.4 % (37.0-47.0); HEMOGLOBIN 6.9 g/dl (12.5-16.0)
--- NOTE | 2019-02-28 17:16 | NUR ---
CRITICAL H&H CALLED TO DR. GUILLEN. HE CONTINUES TO RECOMMEND HOLDING OFF ON BLOOD TRANSFUSION & RECHECKING LABS IN AM.
--- NOTE | 2019-02-28 19:12 | NUR ---
Patient resting in bed. She seems in better spirits this evening. She has requested Iv pain medication regularly q2 hours. She has denied nausea, appetite improved. Tele on she remains tachycardic. She continues to complaints of hemmroids. shyanne sierra provided. Bedside report to Stacy
--- NOTE | 2019-02-28 22:22 | NUR ---
Pt doing ok. Alert and oriented VSS. Tachycardia noted, especially when ambulatory. PM meds given. INT to left AC. PRN dilaudid given. Seems to be doing ok, did not require ativan for detox protocol. States she feels ok, better than yesterday. HGB 6.9. will monitor. Sclera seems jaundice and she is pale in color. Edema to BLE, 2+. Is ambulatory in room and went on walk in hallway. Denies needs at this time. Call light within reach, will continue to monitor.
--- NOTE | 2019-02-28 23:02 | NUR ---
Pt has 2+ edema to both feet, offered to put on octavio hose. pt refused
[2019-03-01] VITALS (11 sets, daily range): BP systolic 105–141; BP diastolic 37–75; PULSE 112–127; TEMP 97.7–99.2
--- NOTE | 2019-03-01 06:08 | NUR ---
pt doing ok. getting dilaudid about every 2 hours. overall seems to be doing well. states she feels better than she has been. denies needs at this time. call light within reach, will continue to monitor.
--- NOTE | 2019-03-01 08:08 | NUR ---
Patient not feeling well this am. Pain increased, she reports nausea. The pain is causing her to feel short of breath. Hospitalist David menard notietified. Ekg completed. Spoke with , we are awaiting morning labs still.
[2019-03-01 09:27] LABS: MEAN CELL VOLUME 111 fl (80.0-100.0); MEAN CORPUSCULAR HGB CONC 32 g/dl (33.0-37.0); MEAN PLATELET VOLUME 10.2 fl (7.4-10.4); PLATELET COUNT 226 K/mm3 (130-400); RED BLOOD COUNT 1.93 M/mm3 (4.10-5.30); REDCELL DISTRIBUTION WIDTH-CV 24.1 % (11.5-14.5)
[2019-03-01 09:34] LABS: HEMATOCRIT 21.5 % (37.0-47.0); MEAN CORPUSCULAR HEMOGLOBIN 35 pg (27.0-31.0)
[2019-03-01 09:35] LABS: HEMOGLOBIN 6.8 g/dl (12.5-16.0); INR 1.3 (0.8-3.0); PROTHROMBIN TIME 14.7 SECONDS (9.7-12.8)
[2019-03-01 09:41] LABS: ALBUMIN 3.1 gm/dL (3.5-5.0); BILIRUBIN,TOTAL 7.4 mg/dL (0.0-1.0); CALCIUM 8.5 mg/dL (8.4-10.2); CREATININE, serum 0.3 (0.52-1.25); PHOSPHOROUS 0.9 mg/dL (2.5-4.5); POTASSIUM 3.9 mmol/L (3.4-5.0); TOTAL PROTEIN 6.3 gm/dL (6.4-8.2)
[2019-03-01 09:50] LABS: BAND 11 % (0-10); LYMPHOCYTE 15 % (20.0-51.0); METAMYELOCYTE 1 % (0-0); NEUTROPHILS 66 % (42.0-75.2); NUCLEATED RED BLOOD CELL 3 (0-6); PLATELET ESTIMATE NORMAL (NORMAL)
[2019-03-01 12:49] LABS: ANTISMOOTH MUSCLE ANTIBODY Negative (Negative)
--- NOTE | 2019-03-01 13:15 | NUR ---
SW met with the patient and provided DPOA-HC form. statement services representative will continue to follow.
--- NOTE | 2019-03-01 13:26 | NUR ---
Patient feeling better this afternoon, she is in better spirits. Her son & boyfriend visited. Pain better managed with increase in roxicodone. Ultrasound unable to be completed due too patient eating food her boyfriend brought, she will be Npo midnight & it is too be completed in Am. K+ & phosphate replaced per orders, Paitent remains tachy. She did ambulate halls & tolerated well. She continues to be concerned about her edema.
--- NOTE | 2019-03-01 17:04 | NUR ---
Patient resting in bed. Pain has been better managed this afternoon. Heart rate also improved after recieving betablocker. She remains on tele. She has not scored on detox scale. Spirits are down again after she spoke with social media community manager. Glenn do.
[2019-03-01 17:30] LABS: HEMATOCRIT 22.1 % (37.0-47.0); HEMOGLOBIN 7.1 g/dl (12.5-16.0)
--- NOTE | 2019-03-01 18:26 | NUR ---
Patient did not eat much dinner. Was able to rest for awhile. Will report off to night nurse
[2019-03-01 19:41] LABS: ANA SCREEN with REFLEX Negative (Negative)
--- NOTE | 2019-03-01 19:53 | NUR ---
Sitting at bedside. Assessment complete. Lungs clear. Heart sounds tachy, S1 and S2 heard. Bowels active x4. Pulses present throughout. Bilateral lower leg edema +3. Reports 7/10 right ABD/flank pain. Provided with PRN dilaudid. INT flushed without complications. Denies other needs at this time. Call light in reach.
--- NOTE | 2019-03-01 22:27 | NUR ---
Rating pain 7/10 in right ABD. Requested percocet and PRN dilaudid. Provided to patient. Will closely monitor.
--- NOTE | 2019-03-02 00:43 | NUR ---
Rates pain 7/10 in ABD. Provided with PRN dilaudid at this time. Denies other needs. Refused 0200 vital signs. Would like to sleep. Call light in reach.
[2019-03-02 04:00] VITALS: BP 125/66; PULSE 120; TEMP 98.9
--- NOTE | 2019-03-02 05:00 | NUR ---
Patient requested PRN dilaudid in addition to scheduled oxycodone. Provided to patient. Will monitor. Call light in reach.
[2019-03-02 06:00] VITALS: BP 123/67; PULSE 118; TEMP 98.7
--- NOTE | 2019-03-02 06:36 | NUR ---
Patient received x2 doses of oxycodone and x4 doses of dilaudid for pain control throughout night. Patient reports lowest pain score of 5/10. Resting in bed this AM. Denies needs. Call light in reach.
--- NOTE | 2019-03-02 07:22 | NUR ---
Report given to LARS Obregon
[2019-03-02 08:49] VITALS: BP 112/50; PULSE 125; TEMP 99.3
[2019-03-02 10:12] LABS: MEAN CELL VOLUME 112 fl (80.0-100.0); MEAN CORPUSCULAR HGB CONC 31 g/dl (33.0-37.0); MEAN PLATELET VOLUME 10.5 fl (7.4-10.4); PLATELET COUNT 231 K/mm3 (130-400); RED BLOOD COUNT 1.99 M/mm3 (4.10-5.30); REDCELL DISTRIBUTION WIDTH-CV 23.9 % (11.5-14.5)
[2019-03-02 10:13] VITALS: BP 115/61; PULSE 115; TEMP 99.6
[2019-03-02 10:29] LABS: INR 1.3 (0.8-3.0); PROTHROMBIN TIME 15.3 SECONDS (9.7-12.8)
[2019-03-02 10:32] LABS: HEMATOCRIT 22.3 % (37.0-47.0); MEAN CORPUSCULAR HEMOGLOBIN 35 pg (27.0-31.0)
[2019-03-02 10:50] LABS: BILIRUBIN,TOTAL 7.3 mg/dL (0.0-1.0); CALCIUM 8.5 mg/dL (8.4-10.2); CREATININE, serum 0.28 (0.52-1.25); MAGNESIUM 2.1 mg/dL (1.6-2.3); TOTAL PROTEIN 6.2 gm/dL (6.4-8.2)
[2019-03-02 11:03] LABS: ANISOCYTOSIS 2+; BAND 10 % (0-10); EOSINOPHIL 2 % (0-4); LYMPHOCYTE 14 % (20.0-51.0); METAMYELOCYTE 1 % (0-0); NEUTROPHILS 69 % (42.0-75.2); PLATELET ESTIMATE NORMAL (NORMAL); SCHISTOCYTES 1+; TARGET CELLS 1+
[2019-03-02 12:00] VITALS: BP 110/57; PULSE 117; TEMP 98.3
[2019-03-02 15:24] VITALS: BP 123/68; PULSE 111; TEMP 99.2
--- NOTE | 2019-03-02 18:30 | NUR ---
Patient has been up a few times ambulating in the hallways. Pain has been hard to control today. Her dilauded was switched from Q2 hours to Q4 hours and she was not tolerating it. It is now Q3 hours. Her family has been by to visit. Her main complaint of pain at this time is from her feet due to the edema. No other changes at this time. Call light within reach.
--- NOTE | 2019-03-02 20:00 | NUR ---
Report received. 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 A&Ox3. Assessment complete. VS stable. Very agitated due to change in pain medication schedule. States she waS told it would be fixed and she could get it more often. Rating pain 8/10 to back/side and feet. Noted to have +2-3 lower extremity edema. Did speak with hospitalist on for this night and new order received to administer Dilaudid dose early and re-assess. If pain is still high may give 0.50 more. Denies nausea/shortness of breath. Encouraged to elevate lower extremitities.-states she has all day and it did not help. Denies any other needs at this time. Will monitor.
[2019-03-03] VITALS: PULSE 106
[2019-03-03 04:30] VITALS: BP 118/68; PULSE 113; TEMP 98
[2019-03-03 08:06] LABS: MEAN CELL VOLUME 110 fl (80.0-100.0); MEAN CORPUSCULAR HGB CONC 32 g/dl (33.0-37.0); MEAN PLATELET VOLUME 10.9 fl (7.4-10.4); PLATELET COUNT 280 K/mm3 (130-400); RED BLOOD COUNT 2.18 M/mm3 (4.10-5.30)
[2019-03-03 08:17] LABS: INR 1.3 (0.8-3.0); PROTHROMBIN TIME 15.3 SECONDS (9.7-12.8)
[2019-03-03 08:31] LABS: BILIRUBIN,TOTAL 7.1 mg/dL (0.0-1.0); CALCIUM 8.8 mg/dL (8.4-10.2); CREATININE, serum 0.29 (0.52-1.25); POTASSIUM 3.8 mmol/L (3.4-5.0); TOTAL PROTEIN 6.5 gm/dL (6.4-8.2)
[2019-03-03 08:33] LABS: HEMOGLOBIN 7.6 g/dl (12.5-16.0); MEAN CORPUSCULAR HEMOGLOBIN 35 pg (27.0-31.0)
[2019-03-03 09:27] VITALS: BP 117/65; PULSE 116; TEMP 98.9
[2019-03-03 11:22] LABS: ANISOCYTOSIS 3+; BAND 6 % (0-10); HYPOCHROMIA 2+; LYMPHOCYTE 13 % (20.0-51.0); NEUTROPHILS 78 % (42.0-75.2); NUCLEATED RED BLOOD CELL 1 (0-6); PLATELET ESTIMATE NORMAL (NORMAL)
[2019-03-03 12:52] VITALS: BP 121/67; PULSE 111; TEMP 99.1
[2019-03-03 15:59] VITALS: BP 121/63; PULSE 116; TEMP 98.8
--- NOTE | 2019-03-03 18:30 | NUR ---
Patient continues have pain rating at 7-9 on a 0-10 scale. Even when getting pain medication. She is very unhappy about not being to get dilauded more often. No other changes at this time. Call light within reach.
--- NOTE | 2019-03-03 19:45 | NUR ---
Report received. 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 A&Ox3. Assessment complete. Sitting in chair rocking back and fourth crying-states she is in a "pain emergency" and cant take it anymore. States she has to have pain meds as her pain level is 9/10 to her feet/toes/back/and right side. Described as sharp/stabbing/throbbing to all areas. Discussed dosing of pain medications and when next dose was due. Responded with increased crying-raising voice stating "we did this to her and she needs pain meds for it." When asked what she was referring to she stated the swelling in her feet. Was unable to calm down enough to discuss a plan-Hospitalist conditioning coach notified and new orders received for x1 dose of dilaudid. Given at this time. After giving states this dose is to low and will never help and what is the next plan. Tried to discuss a plan but interrupts and wont allow a discussion to happen. Will re-assess pain level. We did discuss that this extra dose would be the last extra dose and her normal schedule will follow. Verbalizes understanding. Will monitor.
[2019-03-04] VITALS (10 sets, daily range): BP systolic 100–119; BP diastolic 38–62; PULSE 106–134; TEMP 98.8–103.2
--- NOTE | 2019-03-04 02:25 | NUR ---
Notified by Tele of tachycardia up to 130s. This nurse to room to check on patient. Currently up to bathroom will assess once to bed.
--- NOTE | 2019-03-04 02:30 | NUR ---
Back to bed at this time. Vitals done-noted to have oral temp of BP- 111/44, 103.0, HR 128, 96% on room air. States she is having a panic attack because she forgot where she was. Dr Palmer notified of change in vital signs. New orders received and initiated. IS given with instruction on use. Refusing to take deep breaths but would rather take short shallow breaths. Instructed several times on use and importance but more worried about next pain med. After discussing and realizing pain meds could not be given if she feels like she cant take deep breaths is willing to try harder. Will continue to instruct on proper use. Cold wash cloths provided for fever. Hesitant to even allow cold wash clothes to be applied, Only area she will use is on her head. Will continue to monitor.
--- NOTE | 2019-03-04 05:55 | NUR ---
Hospitalist notified of increased heart rate to [id number] rn telehealth. Recent vitals given due to low blood pressure. No new order received-will come to assess.
--- NOTE | 2019-03-04 10:00 | NUR ---
Dr Payne notified of consult.
--- NOTE | 2019-03-04 10:00 | NUR ---
Patient resting in bedside recliner at this time. Patient is alert and oriented, answers questions appropriately. INT to LAC infiltrated, removed cannual from infiltrated site and asked charge nurse and laborer beam house to attempt to find a site; reported loss of IV to hospitalist and recieved a surgical consult for central line placement.
--- NOTE | 2019-03-04 14:48 | NUR ---
Vancomycin Initial Dosing Pharmacy Note Ordering provider: Socorro Dill W., MD Indication/duration: sepsis of unknown source, 7 days Relevant comorbidities: s/p treatment with ceftriaxone 03/01/19 for UTI, acute alcoholic hepatitis LABS: SCr 0.29, CrCl~272, GFR 280 Recommendation: Will give Vancomycin 1.5 gm IV x1 loading dose, then Vancomycin 1.25 gm IV q8h. Pharmacy will continue to monitor and check a Vancomycin trough on 03/06/19. Loading dose: 1.5 grams Maintenance dose: 1.25 grams every 8 hours Trough goal: 15-20 ug/mL
[2019-03-04 16:12] LABS: MEAN CELL VOLUME 108 fl (80.0-100.0); MEAN CORPUSCULAR HGB CONC 31 g/dl (33.0-37.0); MEAN PLATELET VOLUME 10.8 fl (7.4-10.4); PLATELET COUNT 350 K/mm3 (130-400); RED BLOOD COUNT 2.05 M/mm3 (4.10-5.30); REDCELL DISTRIBUTION WIDTH-CV 22.7 % (11.5-14.5)
[2019-03-04 16:19] LABS: ALBUMIN 2.8 gm/dL (3.5-5.0); BILIRUBIN UNCONJUGATED 0.8 mg/dL (0.0-1.1); BILIRUBIN,DIRECT 5.9 mg/dL (0.0-0.4); BILIRUBIN,TOTAL 6.7 mg/dL (0.0-1.0); CALCIUM 8.4 mg/dL (8.4-10.2); CREATININE, serum 0.34 (0.52-1.25); POTASSIUM 3.7 mmol/L (3.4-5.0)
[2019-03-04 16:21] LABS: HEMATOCRIT 22.2 % (37.0-47.0); HEMOGLOBIN 6.8 g/dl (12.5-16.0); MEAN CORPUSCULAR HEMOGLOBIN 33 pg (27.0-31.0)
[2019-03-04 16:46] LABS: ANISOCYTOSIS 2+; BAND 28 % (0-10); HYPOCHROMIA 2+; LYMPHOCYTE 7 % (20.0-51.0); METAMYELOCYTE 1 % (0-0); NEUTROPHILS 53 % (42.0-75.2); PLATELET ESTIMATE NORMAL (NORMAL)
[2019-03-04 16:47] LABS: POLYCHROMASIA 1+; TARGET CELLS 2+
--- NOTE | 2019-03-04 16:52 | NUR ---
The patient may be a candidate for LTAC. ROC presented Medicare.gov's list of LTACs. The patient's choice is [facility]. Sprague from [facility] visited the patient and will review the patient's referral. ROC will continue to follow.
--- NOTE | 2019-03-04 18:05 | NUR ---
Patient resting in bed at this time, patient reports pain is somewhat better controlled and is eating dinner. Patient denies further needs at this time, call light within reach.
--- NOTE | 2019-03-04 18:50 | NUR ---
REPORT RECEIVED FROM LARS HUBBARD; CARE OF PT SSUMED AT THIS TIME.
--- NOTE | 2019-03-04 19:45 | NUR ---
PT IS AWAKE, ALERT, OX4 UPON ENTERING ROOM. PT IS REPORTING PAIN TO ABD, BACK, NECK, AND FEET THAT SHE RATES AT 7/10 ON PAIN SCALE AND IS REQUESTING A DOSE OF DILAUDID AT THIS TIME. PT GIVEN THIS MEDICATION. PT HAS EDEMA TO BILAT FEET AT 3+ PITTING AND PT REPORTS THIS AREA IS TENDER. REPORTS HAVING MULTIPLE HARD STOOLS THROUGHOUT THE DAY. CENTRAL LINE TO R JUGULAR WITH ZOSYN AND VANC INFUSING AT THIS TIME. AREA IS PINK IN COLOR AND PT REPORTS TENDERNESS THIS WAS PLACED TODAY. DRESSING INTACT. CALL LIGHT WITHIN REACH.
[2019-03-05 00:15] VITALS: BP 113/65; PULSE 101; TEMP 98.6
[2019-03-05 04:52] VITALS: BP 113/65; PULSE 105; TEMP 100.1
--- NOTE | 2019-03-05 06:30 | NUR ---
PT HAS NOT SLEPT MUCH THROUGH THE NIGHT, STATES SHE IS HAVING PAIN TO HER LOWER BACK, ABDOMEN, SIDE, AND FEET. PT IS REQUESTING IV DILAUDID EVERY 3 HOURS AVAILABLE WITH NO REPORTED RELIEF OF PAIN. PT HAS BEEN UP TO CHAIR AT BEDSIDE OCC DURING THE NIGHT. CENTRAL LINE TO R IJ IS INTACT AND INFUSING WELL. CALL LIGHT WITHIN REACH.
[2019-03-05 07:15] LABS: BASO % 0.1 % (0.0-2.0); EOS % 0.1 % (0-4.0); GRAN # 12.8 (1.4-6.5); GRAN % 79.9 % (42.2-75.2); LYMPH # 1.8 (1.2-3.4); LYMPH % 11.1 % (20.0-51.0); MEAN CELL VOLUME 110 fl (80.0-100.0); MEAN CORPUSCULAR HGB CONC 30 g/dl (33.0-37.0); MEAN PLATELET VOLUME 10.9 fl (7.4-10.4); MONO # 1.2 (0.1-0.6); MONO % 7.5 % (1.7-9.3); PLATELET COUNT 378 K/mm3 (130-400); RED BLOOD COUNT 2.19 M/mm3 (4.10-5.30); REDCELL DISTRIBUTION WIDTH-CV 22.8 % (11.5-14.5)
[2019-03-05 07:19] LABS: ALBUMIN 2.9 gm/dL (3.5-5.0); BILIRUBIN,TOTAL 5.8 mg/dL (0.0-1.0); CALCIUM 8.6 mg/dL (8.4-10.2); CREATININE, serum 0.31 (0.52-1.25); TOTAL PROTEIN 6.2 gm/dL (6.4-8.2)
[2019-03-05 07:25] VITALS: BP 112/58; PULSE 114; TEMP 100.8
[2019-03-05 07:43] LABS: HEMATOCRIT 24.1 % (37.0-47.0); HEMOGLOBIN 7.3 g/dl (12.5-16.0); MEAN CORPUSCULAR HEMOGLOBIN 33 pg (27.0-31.0)
--- NOTE | 2019-03-05 08:00 | NUR ---
Patient resting in bedside recliner at this time. Patient is alert and oriented, answers questions appropriately. Patient states that she is having pain that she rates 8/10 in her back, hips, legs, and feet; educated patient on her scheduled and PRN pain medications and assured her that she would get them as soon as they were able to be given. Patient verbalized understanding and denied further needs. Call light within reach.
[2019-03-05 11:36] VITALS: BP 115/55; PULSE 110; TEMP 100.2
[2019-03-05 12:44] LABS: COLLECTION METHOD CLEAN CATCH
[2019-03-05 13:22] LABS: PH 5 (5-8); SQUAMOUS EPITHELIAL None Seen /hpf; URINE APPEARANCE Turbid; URINE BACTERIA None Seen /hpf; URINE BILIRUBIN Positive (NEGATIVE); URINE BLOOD Negative (NEGATIVE); URINE COLOR Straw; URINE GLUCOSE Negative (NEGATIVE); URINE KETONE Negative (NEGATIVE); URINE LEUKOCYTE ESTERASE Negative (NEGATIVE); URINE NITRATE Negative (NEGATIVE); URINE PROTEIN(semi-quant) 1+ (NEGATIVE); URINE RBC 0-2 /hpf; URINE UROBILINOGEN Negative (NEGATIVE)
[2019-03-05 13:25] LABS: AMORPHOUS CRYSTAL Present /uL
--- NOTE | 2019-03-05 13:33 | NUR ---
Celestine from [facility] reports they can accept the patient for admission at [facility] . SW faxed updates.
--- NOTE | 2019-03-05 14:31 | NUR ---
The patient is to discharge this day, 03/05 to [facility] in to room [address] Sanchez is receiving physician. Discharge orders to be faxed to . Nurse to nurse . [facility] can transport the patient at 1530. The team and the patient were in agreeance. There are no additional needs at this time.
--- NOTE | 2019-03-05 16:18 | NUR ---
Patient discharged from facility per order. Report called to recieving facility. EMS transported patient with STATION INSTALLER and IV fluids in place per orders.
== END 2019-03-05 16:07 | DRG 432 ==
LOC: COL.ER 16:45 → IMCU 19:23 → SURG 19:23 → IMCU 02-26 15:57 → SURG 02-27 13:57
PROVIDERS: Emergency Medicine; Internal Medicine Gastroenterology; Nurse Practitioner Family; Physician Assistant; Student in an Organized Health Care Education/Training Program; Surgery; ADMIT Student in an Organized Health Care Education/Training Program
PROC: 02HV33Z Insertion of Infusion Device into Superior Vena Cava, Percutaneous Approach (ICD-10-PCS; principal; 2019-03-04 11:00)
DX: K70.10 Alcoholic hepatitis without ascites (principal); A41.9 Sepsis, unspecified organism; E87.2 Acidosis; N39.0 Urinary tract infection, site not specified; K21.9 Gastro-esophageal reflux disease without esophagitis; E87.6 Hypokalemia; E83.39 Other disorders of phosphorus metabolism; D72.829 Elevated white blood cell count, unspecified; F10.10 Alcohol abuse, uncomplicated; K29.20 Alcoholic gastritis without bleeding; K59.03 Drug induced constipation; K64.9 Unspecified hemorrhoids; D53.9 Nutritional anemia, unspecified
CPT/HCPCS: 99223-AI; 99231-AI; 99232-AI; 99233-AI; 99239; A4216; C1751; C9113; J0696; J1170; J1200; J2060; J2405; J2543; J2550; J2920; J2930; J3010; J3370; J3411; J3430; J3480; J7030; J7040; J7050; J7510; Q9967

== ENCOUNTER → 2019-03-25 | Emergency (ER) | payer SELFPAY ==
[~2019-03-25] VITALS: Ht 172.7 cm; Wt 97.7 kg
[~2019-03-25] MED LIST changes: +DAZIDOX10 MG PO; +MACROBID 1100 MG/CAP PO; +PRILOTC PO; +VOLTAREN GEL 1%1 TU TP; +ZOFRAN ODT4 MG SL
[2019-03-25 01:12] VITALS: BP 106/55; TEMP 98.7
[2019-03-25 01:53] LABS: MEAN CELL VOLUME 92 fl (80.0-100.0); MEAN CORPUSCULAR HGB CONC 30 g/dl (33.0-37.0); MEAN PLATELET VOLUME 11.3 fl (7.4-10.4); PLATELET COUNT 522 K/mm3 (130-400); REDCELL DISTRIBUTION WIDTH-CV 21.9 % (11.5-14.5)
[2019-03-25 01:55] LABS: HEMATOCRIT 26.8 % (37.0-47.0); MEAN CORPUSCULAR HEMOGLOBIN 28 pg (27.0-31.0)
[2019-03-25 02:01] LABS: ALBUMIN 2.7 gm/dL (3.5-5.0); BILIRUBIN,TOTAL 8.6 mg/dL (0.0-1.0); CALCIUM 8.7 mg/dL (8.4-10.2); CREATININE, serum 0.61 (0.52-1.25); POTASSIUM 3.2 mmol/L (3.4-5.0); TOTAL PROTEIN 6.3 gm/dL (6.4-8.2)
[2019-03-25 02:43] LABS: LIPASE 50 U/L (23-300)
[2019-03-25 02:49] LABS: ALCOHOL(ethanol),MEDICAL < 10 mg/dL
[2019-03-25 03:12] LABS: BAND 7 % (0-10); HYPOCHROMIA 2+; LYMPHOCYTE 22 % (20.0-51.0); NEUTROPHILS 64 % (42.0-75.2); PLATELET ESTIMATE INCREASED (NORMAL)
[2019-03-25 03:13] LABS: ANISOCYTOSIS 2+; TEAR DROP CELLS 1+
[2019-03-25 03:55] LABS: COLLECTION METHOD CLEAN CATCH
[2019-03-25 04:25] LABS: MUCOUS Present /lpf; PH 5 (5-8); SQUAMOUS EPITHELIAL 20-50 /hpf; URINE APPEARANCE Cloudy; URINE BACTERIA Rare /hpf; URINE BILIRUBIN Positive (NEGATIVE); URINE BLOOD 2+ (NEGATIVE); URINE COLOR Amber; URINE GLUCOSE Negative (NEGATIVE); URINE KETONE Negative (NEGATIVE); URINE LEUKOCYTE ESTERASE 2+ (NEGATIVE); URINE NITRATE Negative (NEGATIVE); URINE PROTEIN(semi-quant) 1+ (NEGATIVE)
[2019-03-25 04:46] VITALS: PULSE 110
== END ==
LOC: COL.ER 01:00
PROVIDERS: Emergency Medicine
DX: R10.11 Right upper quadrant pain (principal); G89.29 Other chronic pain; K21.9 Gastro-esophageal reflux disease without esophagitis; E87.6 Hypokalemia; Z87.891 Personal history of nicotine dependence
CPT/HCPCS: J1170; J2405; J7030

== ENCOUNTER 2019-03-28 16:18 | Inpatient (IN) | payer SELFPAY ==
[~2019-03-28] VITALS: Ht 172.7 cm; Wt 97.7 kg
[~2019-03-28 16:18] MED LIST changes: -VOLTAREN GEL 1%1 TU TP
[2019-03-28 17:28] LABS: BASO # 0.1 (0.0-0.2); BASO % 0.5 % (0.0-2.0); EOS % 0.3 % (0-4.0); GRAN # 8.6 (1.4-6.5); GRAN % 70.1 % (42.2-75.2); LYMPH % 16.1 % (20.0-51.0); MEAN CELL VOLUME 90 fl (80.0-100.0); MEAN CORPUSCULAR HGB CONC 30 g/dl (33.0-37.0); MEAN PLATELET VOLUME 10.7 fl (7.4-10.4); MONO # 1.5 (0.1-0.6); MONO % 12.3 % (1.7-9.3); PLATELET COUNT 433 K/mm3 (130-400); RED BLOOD COUNT 2.93 M/mm3 (4.10-5.30); REDCELL DISTRIBUTION WIDTH-CV 21.5 % (11.5-14.5)
[2019-03-28 17:29] LABS: HEMATOCRIT 26.4 % (37.0-47.0); MEAN CORPUSCULAR HEMOGLOBIN 27 pg (27.0-31.0)
[2019-03-28 17:43] LABS: ALBUMIN 2.9 gm/dL (3.5-5.0); BILIRUBIN,TOTAL 7.4 mg/dL (0.0-1.0); C-REACTIVE PROTEIN 5.2 mg/dL (0.0-0.9); CALCIUM 8.4 mg/dL (8.4-10.2); CREATININE, serum 0.63 (0.52-1.25); TOTAL PROTEIN 6.7 gm/dL (6.4-8.2)
[2019-03-28 17:44] LABS: POTASSIUM 2.6 mmol/L (3.4-5.0)
[2019-03-28 18:42] LABS: INR 1.7 (0.8-3.0); PROTHROMBIN TIME 20.7 SECONDS (9.7-12.8)
[2019-03-28 18:51] LABS: MAGNESIUM 1.7 mg/dL (1.6-2.3)
[2019-03-28 18:53] LABS: ALCOHOL(ethanol),MEDICAL < 10 mg/dL
[2019-03-28 21:28] VITALS: BP 115/57; PULSE 99; TEMP 98.3
[2019-03-28 23:41] VITALS: BP 112/54; PULSE 104; TEMP 98.3
[2019-03-29] MEDS ORDERED: VOLTAREN GEL 1%1 TU TP (03:50)
[2019-03-29 04:22] VITALS: BP 111/53; PULSE 92; TEMP 98
[2019-03-29 07:36] LABS: MEAN CELL VOLUME 91 fl (80.0-100.0); MEAN CORPUSCULAR HGB CONC 30 g/dl (33.0-37.0); MEAN PLATELET VOLUME 11.4 fl (7.4-10.4); PLATELET COUNT 410 K/mm3 (130-400); RED BLOOD COUNT 2.82 M/mm3 (4.10-5.30); REDCELL DISTRIBUTION WIDTH-CV 21.2 % (11.5-14.5)
[2019-03-29 07:37] LABS: ALBUMIN 2.7 gm/dL (3.5-5.0); BILIRUBIN,TOTAL 6.6 mg/dL (0.0-1.0); CREATININE, serum 0.64 (0.52-1.25); TOTAL PROTEIN 6.5 gm/dL (6.4-8.2)
[2019-03-29 07:39] LABS: HEMATOCRIT 25.6 % (37.0-47.0); HEMOGLOBIN 7.6 g/dl (12.5-16.0); MEAN CORPUSCULAR HEMOGLOBIN 27 pg (27.0-31.0)
[2019-03-29 07:53] LABS: POTASSIUM 2.6 mmol/L (3.4-5.0)
[2019-03-29 08:24] LABS: BAND 7 % (0-10); EOSINOPHIL 1 % (0-4); HYPOCHROMIA 3+; LYMPHOCYTE 16 % (20.0-51.0); NEUTROPHILS 63 % (42.0-75.2); PLATELET ESTIMATE NORMAL (NORMAL)
[2019-03-29 08:25] LABS: SCHISTOCYTES 1+; TARGET CELLS 2+; TEAR DROP CELLS 1+
[2019-03-29 08:26] LABS: ANISOCYTOSIS 2+
[2019-03-29 08:37] VITALS: BP 107/58; PULSE 98; TEMP 98.4
--- NOTE | 2019-03-29 09:37 | NUR ---
HOSPITALIST TEAM AND DR GUILLEN ROUNDED ON PT THIS AM. PT UP INDEPENDENTLY TO BR. IV TO RFA INFUSING AT THIS TIME. PICC LINE TO BE PLACED BY AIV. NEW ORDERS RECIEVED. PAIN MEDS GIVEN Q 1H IV.
--- NOTE | 2019-03-29 10:31 | NUR ---
DR. TYSON NOTIFIED OF CONSULT.
--- NOTE | 2019-03-29 11:25 | NUR ---
REPORT FROM DIALLO THAT PICC LINE WILL BE ADJUSTED.
--- NOTE | 2019-03-29 11:26 | NUR ---
Guest Relations Officer met with patient to discuss discharge planning. Patient lives in [place] with her boyfriend, Sandi (ph#[phone]) and their child. Patient sees Dr. Morgan for primary care and obtains needed medications from [facility]. Patient does not have any DME and reports her boyfriend, Sandi provides assistance with bathing and dressing as needed. Patient has DPOA[facility]HC located in [facility]. SW addressed patient's history of alcohol abuse. Patient states her last drink was in February prior to her last admit to the hospital. SW asked patient about need for AA meetings or other services and patient states she feels she does not need those resources at this time. Patient plans to return home upon discharge.
[2019-03-29 12:19] VITALS: BP 111/58; PULSE 98; TEMP 97.3
--- NOTE | 2019-03-29 13:52 | NUR ---
Initial visit; Patient thanked Director Global Sales for stopping in and wishing her well. Patient declined spiritual care.
--- NOTE | 2019-03-29 16:07 | NUR ---
REPORT TO MITCHELL SOUSA.
--- NOTE | 2019-03-29 16:17 | NUR ---
Sitting up in chair. Rates pain 7/10 in lower extremities and abd. Patient says that she was just given pain medication. 3+ edema noted in bilat LE. Scant amount of yellowing of skin, whites of eyes jaundiced. Patient declines needs at this time.
[2019-03-29 16:27] VITALS: BP 123/47; PULSE 101; TEMP 97.5
--- NOTE | 2019-03-29 16:49 | NUR ---
Rates pain 7/10 and requests Dilaudid. Dilaudid administered as prescribed. Patient up ambulating in room. Denies further needs.
--- NOTE | 2019-03-29 18:37 | NUR ---
Patient up independently in room. Average pain rating in abd is 7/10. Patient is waiting on significant other and son to come up and see her. Denies needs at this time.
--- NOTE | 2019-03-29 18:47 | NUR ---
Rating pain 7/10 in abd. Has more localized pain in right side. Administered pain medication as prescribed. Family in room with the patient.
[2019-03-29 20:11] VITALS: BP 110/56; PULSE 105; TEMP 97.8
[2019-03-29 23:40] VITALS: BP 110/57; PULSE 101; TEMP 97.8
[2019-03-30 02:50] VITALS: BP 104/54; PULSE 105; TEMP 97.8
--- NOTE | 2019-03-30 03:07 | NUR ---
Patient standing at the sink when this nurse assessed her after getting a call from telemetry stating patient was going into a-fib RVR about 6-10 seconds in length topping out at 160bpm, but would convert back into NS. Jennifer Casillas notified and ordered morning labs to completed now, an EKG, and a cardio consult in the AM. Patient is currently laying down and states she feels fine. Lab and respiratory notified of orders. Will continue to monitor patient.
--- NOTE | 2019-03-30 07:30 | NUR ---
Patient resting in bedside recliner at this time. Patient is alert and oriented, answers questions appropriately. Patient reports pain at 8/10 in her abdomen and requests PRN pain medication; administered per order. Patient to EGD via bed.
[2019-03-30 08:10] LABS: ALBUMIN 2.8 gm/dL (3.5-5.0); BILIRUBIN,TOTAL 7.1 mg/dL (0.0-1.0); CALCIUM 7.9 mg/dL (8.4-10.2); CREATININE, serum 0.57 (0.52-1.25); MAGNESIUM 1.6 mg/dL (1.6-2.3); POTASSIUM 4.2 mmol/L (3.4-5.0); TOTAL PROTEIN 6.7 gm/dL (6.4-8.2)
[2019-03-30 08:12] LABS: INR 1.7 (0.8-3.0); MEAN CELL VOLUME 90 fl (80.0-100.0); MEAN CORPUSCULAR HGB CONC 30 g/dl (33.0-37.0); PLATELET COUNT 362 K/mm3 (130-400); PROTHROMBIN TIME 20.3 SECONDS (9.7-12.8); RED BLOOD COUNT 2.96 M/mm3 (4.10-5.30); REDCELL DISTRIBUTION WIDTH-CV 21.1 % (11.5-14.5)
[2019-03-30 08:17] LABS: HEMATOCRIT 26.6 % (37.0-47.0); MEAN CORPUSCULAR HEMOGLOBIN 27 pg (27.0-31.0)
[2019-03-30 08:39] LABS: BAND 5 % (0-10); BASOPHIL 1 % (0-2); LYMPHOCYTE 21 % (20.0-51.0); NEUTROPHILS 65 % (42.0-75.2); PLATELET ESTIMATE NORMAL (NORMAL)
[2019-03-30 08:40] LABS: SCHISTOCYTES 1+
[2019-03-30 08:42] LABS: TARGET CELLS 2+; TEAR DROP CELLS 1+
[2019-03-30 09:00] VITALS: BP 106/49; PULSE 98; TEMP 97.6
[2019-03-30 12:27] VITALS: BP 100/54; PULSE 97; TEMP 98.7
[2019-03-30 15:50] VITALS: BP 101/48; PULSE 101; TEMP 97.7
--- NOTE | 2019-03-30 17:52 | NUR ---
Patient resting in bed at this time. Patient remains alert and oriented, answers questions appropriately. Patient tolerating oral intake well, denies nausea and no episodes of emesis. Patient requests PRN pain medication, will administer per order. Denies further needs at this time, call light within reach.
--- NOTE | 2019-03-30 20:00 | NUR ---
Patient up and walking around room. Patient states pain has been 7/10 pain most of the day. Pain is in abdomen and lower extremities. Patient has 3+ edema in lower extremeties abdomen is rounded and firm. Whites of eyes have yellow tint to them. Discussed with patient plan to decrease the use of IV pain medication, patient verbalized understanding, but has been requesting pain medication hourly.
[2019-03-30 20:18] VITALS: BP 103/56; PULSE 105; TEMP 98.4
[2019-03-31 00:26] VITALS: BP 101/48; PULSE 99; TEMP 98.3
[2019-03-31 03:37] VITALS: BP 92/50; PULSE 96; TEMP 98.5
--- NOTE | 2019-03-31 07:32 | NUR ---
report from Taniya Donnelly.
[2019-03-31 07:33] LABS: MEAN CELL VOLUME 90 fl (80.0-100.0); MEAN CORPUSCULAR HGB CONC 30 g/dl (33.0-37.0); MEAN PLATELET VOLUME 11.3 fl (7.4-10.4); PLATELET COUNT 290 K/mm3 (130-400); RED BLOOD COUNT 2.66 M/mm3 (4.10-5.30); REDCELL DISTRIBUTION WIDTH-CV 21.5 % (11.5-14.5)
[2019-03-31 07:34] LABS: HEMOGLOBIN 7.3 g/dl (12.5-16.0); MEAN CORPUSCULAR HEMOGLOBIN 27 pg (27.0-31.0)
[2019-03-31 07:41] VITALS: BP 103/47; PULSE 101; TEMP 98.1
[2019-03-31 07:50] LABS: ALBUMIN 2.6 gm/dL (3.5-5.0); BILIRUBIN,TOTAL 6.9 mg/dL (0.0-1.0); CALCIUM 8.2 mg/dL (8.4-10.2); CREATININE, serum 0.58 (0.52-1.25); MAGNESIUM 1.9 mg/dL (1.6-2.3); POTASSIUM 4.1 mmol/L (3.4-5.0); TOTAL PROTEIN 6.2 gm/dL (6.4-8.2)
[2019-03-31 07:59] LABS: BAND 3 % (0-10); LYMPHOCYTE 19 % (20.0-51.0); NEUTROPHILS 72 % (42.0-75.2); PLATELET ESTIMATE NORMAL (NORMAL); TARGET CELLS 2+
[2019-03-31 08:37] LABS: INR 1.7 (0.8-3.0); PROTHROMBIN TIME 20.4 SECONDS (9.7-12.8)
--- NOTE | 2019-03-31 09:47 | NUR ---
PT UP INDEPENDENTLY IN ROOM AND PITTMAN, CONSULT CALLED THIS AM FOR DR.SMIRAT CREWS. PT STABLE AND HAS NOT HAD ANY ISSUES THIS SHIFT. PT STILL REQUESTING PAIN MEDICATIONS Q1HR. IN TO SEE PT THIS AM. SEE COMPUTER FOR NEW ORDERS.
[2019-03-31 12:09] VITALS: BP 107/57; PULSE 106; TEMP 98
[2019-03-31 17:25] VITALS: BP 119/54; PULSE 109; TEMP 98.4
[2019-03-31 20:00] VITALS: BP 107/58; PULSE 109; TEMP 97.6
--- NOTE | 2019-03-31 20:27 | NUR ---
Pt doing ok, does c/o abodminal pain and pain in bilateral feet. edema to ble 2+. Took pm meds ok. Held metoprolol as pt is hypotensive. pt ambulatory and ind in room. has picc to jitendra johnson&i. denies needs at this time. call light within reach, will continue to monitor
--- NOTE | 2019-03-31 23:12 | NUR ---
pt refused vitamins when giving pm meds. states they make her nauseous
[2019-04-01] VITALS (11 sets, daily range): BP systolic 103–115; BP diastolic 44–60; PULSE 73–119; TEMP 65–98.9
--- NOTE | 2019-04-01 00:33 | NUR ---
Pt c/o feet hurting, pt sitting in chair with legs down. Encouraged patient to keep her feet elevated when she is sitting and laying in bed. Refuses and states "its not comfortable."
[2019-04-01 06:24] LABS: BASO # 0.1 (0.0-0.2); BASO % 0.5 % (0.0-2.0); EOS # 0.1 (0.0-0.7); EOS % 0.6 % (0-4.0); GRAN # 7.8 (1.4-6.5); GRAN % 71.2 % (42.2-75.2); MEAN CELL VOLUME 89 fl (80.0-100.0); MEAN CORPUSCULAR HGB CONC 31 g/dl (33.0-37.0); MEAN PLATELET VOLUME 11.3 fl (7.4-10.4); MONO % 9.2 % (1.7-9.3); PLATELET COUNT 231 K/mm3 (130-400); RED BLOOD COUNT 2.45 M/mm3 (4.10-5.30); REDCELL DISTRIBUTION WIDTH-CV 21.6 % (11.5-14.5)
[2019-04-01 06:29] LABS: HEMATOCRIT 21.7 % (37.0-47.0); HEMOGLOBIN 6.7 g/dl (12.5-16.0); MEAN CORPUSCULAR HEMOGLOBIN 27 pg (27.0-31.0)
[2019-04-01 06:33] LABS: ALBUMIN 2.3 gm/dL (3.5-5.0); BILIRUBIN,TOTAL 5.8 mg/dL (0.0-1.0); CALCIUM 8.1 mg/dL (8.4-10.2); CREATININE, serum 0.55 (0.52-1.25); POTASSIUM 3.8 mmol/L (3.4-5.0); TOTAL PROTEIN 5.8 gm/dL (6.4-8.2)
[2019-04-01 06:43] LABS: INR 1.7 (0.8-3.0); PROTHROMBIN TIME 20.3 SECONDS (9.7-12.8)
--- NOTE | 2019-04-01 07:06 | NUR ---
report from Jj SOUSA.
--- NOTE | 2019-04-01 07:11 | NUR ---
Notified No KIRKPATRICK of lab results.
--- NOTE | 2019-04-01 08:44 | NUR ---
PT INDEPENDENT IN ROOM AND PITTMAN. PLAN ON TRANSFUSION OF 1 UNIT WHEN READY. PT CONTINUES WITH IV DILAUDID Q 2 HR ROUTINE. PT DOES NOT EXHIBIT OUTWARD S/S OF PAIN WHEN CONVERSING WITH STAFF OR ON ASSESSMENT BUT PT RATES PAIN AT 8-9 /[address] GUILLEN IN TO SEE PT THIS AM. NO NEW ORDERS.
--- NOTE | 2019-04-01 09:30 | NUR ---
PICC intact right upper arm. With sterile technique right upper arm PICC dressing change done with insertion site cleansed with ChloraPrep 1, chlorhexidine impregnated disc applied, skin prep, StatLock, and Tegaderm applied. No signs or symptoms of IV complications noted. No concerns voiced. Arm wrapped with Dimitris to protect catheter.
--- NOTE | 2019-04-01 11:23 | NUR ---
Barrel Filler Head attended clinical rounds with the team. Hospitalist discussed pain control with the patient. SW to continue to follow as needed.
--- NOTE | 2019-04-01 11:52 | NUR ---
First visit from the gusset maker. No needs right now.
[2019-04-01 15:30] LABS: HEMATOCRIT 24.3 % (37.0-47.0); HEMOGLOBIN 7.6 g/dl (12.5-16.0)
--- NOTE | 2019-04-01 20:52 | NUR ---
Pt doing ok. Sitting up in chair with legs down, encourage feet up due to swelling but pt refuses. Pt refused her aldactone, states "it is making me pee to much." educated pt that this is what the purpose is and decreases swelling, pt still refused. alert and oriented vss, mild tachy. pt still c/o severe abominal pain and pain in ble.
--- NOTE | 2019-04-01 23:08 | NUR ---
Pt called nursing in so look at rash she has under abodmen fold. Rash is very reddened and peeling with drainage, has foul odor. and does have yeast rash in groin folds. hospitalist called and ordered hydrocoritsone cream and diflucan powder
--- NOTE | 2019-04-02 01:48 | NUR ---
Pt had episode of epistaxis. States she had one yesterday and has been going on for about a month. Very small amt of blood
--- NOTE | 2019-04-02 04:29 | NUR ---
Pt sleeping in bed comfortably, will not wake up for vitals at this time as they have been stable and patient is on tele.
[2019-04-02 07:28] LABS: BASO # 0.1 (0.0-0.2); BASO % 0.4 % (0.0-2.0); EOS # 0.1 (0.0-0.7); EOS % 0.7 % (0-4.0); GRAN # 9.3 (1.4-6.5); GRAN % 73.6 % (42.2-75.2); LYMPH # 2.2 (1.2-3.4); MEAN CELL VOLUME 88 fl (80.0-100.0); MEAN CORPUSCULAR HGB CONC 31 g/dl (33.0-37.0); MEAN PLATELET VOLUME 11.5 fl (7.4-10.4); MONO % 7.9 % (1.7-9.3); PLATELET COUNT 228 K/mm3 (130-400); RED BLOOD COUNT 2.76 M/mm3 (4.10-5.30); REDCELL DISTRIBUTION WIDTH-CV 20.9 % (11.5-14.5)
[2019-04-02 07:32] LABS: HEMATOCRIT 24.3 % (37.0-47.0); HEMOGLOBIN 7.5 g/dl (12.5-16.0); MEAN CORPUSCULAR HEMOGLOBIN 27 pg (27.0-31.0)
[2019-04-02 07:38] LABS: ALBUMIN 2.3 gm/dL (3.5-5.0); BILIRUBIN,TOTAL 5.6 mg/dL (0.0-1.0); CALCIUM 8.1 mg/dL (8.4-10.2); CREATININE, serum 0.56 (0.52-1.25); MAGNESIUM 1.3 mg/dL (1.6-2.3); POTASSIUM 3.3 mmol/L (3.4-5.0); TOTAL PROTEIN 5.8 gm/dL (6.4-8.2)
[2019-04-02 08:06] VITALS: BP 92/39; PULSE 99; TEMP 98.5
--- NOTE | 2019-04-02 09:05 | NUR ---
Lying in bed with eyes open. Rates pain 8/10 in abd. PICC to right upper arm without redness/edema/drainage, wrapped with robbin wrap. Patient has jaundice of whites of eyes. Has 4+bilat lower ext edema.
--- NOTE | 2019-04-02 09:23 | NUR ---
Administered Dilaudid as prescribed per patient request. Sitting up in chair eating breakfast at this time.
--- NOTE | 2019-04-02 11:04 | NUR ---
Lying in bed with eyes closed. Opens eyes when enter room. Rates pain 7/10 in abd. Patient explains that she just does not feel well today. Patient says she would like Dilaudid as soon as she is available for it. Explain to the patient that she had the Dilaudid last at 0923 and she can have next dose at 1123. Patient denies further needs at this time.
--- NOTE | 2019-04-02 11:22 | NUR ---
Rating pain 7/10 in abdomen. Administered Dilaudid as prescribed per patient request.
[2019-04-02 11:29] VITALS: BP 104/50; PULSE 94; TEMP 98.1
--- NOTE | 2019-04-02 12:02 | NUR ---
Rates pain in abd 08/17. Patient requests oxycodone. Administered as prescribe. Patient sitting up in bed and eating lunch. Denies further needs.
--- NOTE | 2019-04-02 13:06 | NUR ---
Sitting up in chair eating lunch. Rates pain 7/10 in abd. Patient requests Dilaudid. Explained to the patient that she will be due for her Dilaudid at 1320. Patient denies further needs.
--- NOTE | 2019-04-02 14:08 | NUR ---
Rating pain in abd and legs as a 7/10 and describes pain as sharp. Administered Dilaudid as prescribed per patient request. Patient sitting up in chair. Patient hand writes note for Dr. Dill to let him know that she has a f/u appt scheduled with Dr. Morgan for Apr 12, 2019 at 12:45 p.m. Patient denies further needs at this time.
--- NOTE | 2019-04-02 14:50 | NUR ---
Patient calls staff to room. Explains that she went to the bathroom because she had to urinate and then she had blood come out of her rectum. In the toilet it it dark black/red. Asked patient if she had BM at all and the patient declines. Patient also verifies that she is not on her menstrual cycle either. Dr. Dill notified and updated and he recommends GI to be contacted. Message left for Dr. Mazariegos to contact this nurse.
[2019-04-02 14:58] VITALS: BP 94/45; PULSE 98; TEMP 98.1
--- NOTE | 2019-04-02 15:50 | NUR ---
Receive call from Dr. Mazariegos. Updated on patient status. No new orders at this time. Dr. Mazariegos requests we continue to monitor and if symptoms worsen to notify supervisor [facility].
--- NOTE | 2019-04-02 16:05 | NUR ---
Rates pain in abd and legs 8/10, describes as sharp. Administered Dilaudid as prescribed. Patient also having nausea and requests Zofran. Zofran administered as prescribed. Patient lying in bed, Denies further needs.
--- NOTE | 2019-04-02 17:14 | NUR ---
Discussed with patient weaning off IV pain medication and using oral medications first. Patient rates pain 7/10 in abd and legs, describes as sharp. Patient requests oxycodone, administered as prescribed. When patient gets out of bed to go to bathroom, small amount of blood noted on sheets. Patient has history of hemorrhoids. Explain to the patient that the blood may be due to hemorrhoids. Patient says that when she experienced them in the past she did not have abd pain. Patient to bathroom, voids, returns to room and sits in chair to eat. Patient denies further needs at this time.
[2019-04-02 17:35] LABS: BASO # 0.1 (0.0-0.2); BASO % 0.3 % (0.0-2.0); EOS # 0.1 (0.0-0.7); EOS % 0.6 % (0-4.0); GRAN # 10.5 (1.4-6.5); GRAN % 72.8 % (42.2-75.2); LYMPH # 2.4 (1.2-3.4); LYMPH % 16.8 % (20.0-51.0); MEAN CELL VOLUME 87 fl (80.0-100.0); MEAN CORPUSCULAR HGB CONC 31 g/dl (33.0-37.0); MEAN PLATELET VOLUME 11.6 fl (7.4-10.4); MONO # 1.3 (0.1-0.6); MONO % 8.9 % (1.7-9.3); PLATELET COUNT 244 K/mm3 (130-400); RED BLOOD COUNT 2.97 M/mm3 (4.10-5.30); REDCELL DISTRIBUTION WIDTH-CV 21.2 % (11.5-14.5)
[2019-04-02 17:36] LABS: HEMATOCRIT 25.8 % (37.0-47.0); HEMOGLOBIN 8.1 g/dl (12.5-16.0); MEAN CORPUSCULAR HEMOGLOBIN 27 pg (27.0-31.0)
--- NOTE | 2019-04-02 18:10 | NUR ---
Patient up to bathroom and in the hat in back of toilet is red liquid, looks like urine and blood mixed together. Patient says that it was all from her rectum. Occult sample collected and sent to the lab. Patient asks if she can have Dilaudid for 8/10 pain in her abd and legs as the other medication did not help. Explained that we could get her Dilaudid per her request. Explain to the patient that her Hgb has improved. Patient then crosses her arms and asks if she has any medications in her chart that she can take for anxiety because she just feels anxious. Asked patient what she is anxious about and the patient says that "I do not really know." Reviewed MAR and explain to the patient that there is no medication ordered for anxiety. Patient asks if there is a doctor on the floor at this time. Explained that there is none on the floor at this time and that we would have to call to see if we can get an order. Patient shakes her head "no". Says that she will take the Dilaudid at this time. When returned to the room with the Dilaudid, patient removes phone from geriatric assistant and flings the geriatric assistant cord on the floor. Patient brushes teeth then sits on side of bed. Administered Dilaudid as prescribed. Offered to assist the patient in the bed and the patient refuses and says that she has it. Attempt to make conversation with the patient and she is short with her answers and will not make eye contact. Patient says that her boyfriend and son will be coming up to see her. Denies further needs.
--- NOTE | 2019-04-02 18:38 | NUR ---
Contacted Dr. Jones to inquire about medication for anxiety. Dr. Jones says that he will not prescribe anxiety medication for the patient as she is on controlled medications at this time.
--- NOTE | 2019-04-02 18:44 | NUR ---
Updated patient that Dr. Jones will not prescribe anxiety medication with the pain medication she is on. Patient still not making eye contact, says okay, and rolls over.
[2019-04-02 20:31] VITALS: BP 103/31; PULSE 99; TEMP 98.1
[2019-04-02 23:32] VITALS: BP 101/50; PULSE 103; TEMP 98.9
--- NOTE | 2019-04-03 00:53 | NUR ---
Patient called and requested pain medication. HS medications, including scheduled pain medication, brought to patient. Patient sat cup on her bedside table. This nurse educated the patient that she needed to take it with me present d/t the presence of narcotics. Patient took medication. Patient then stated, "Did you give me my pain shot?" as she held her arm out. This nurse stated that I gave her scheduled pain medication. Patient became upset and stated that if she would have known that she couldn't have the "pain shot" and the scheduled pain medication at the same time she would have refused the scheduled pain med. Patient educated on the importance of getting off the IV pain medication because she can't go home with it. Patient verbalized frustration and began to cry. She then called 2 hours later for IV pain medication. Patient educated that she had oral PRN pain medication that she should try before the IV pain medication, but patient refused to take the oral pain medication. Continues to rate pain 8/10. Noted to be resting with eyes closed when I entered the room for midnight vitals. Patient denies any more "bloody stools" since this nurse came on shift. Will continue to monitor.
[2019-04-03 03:00] VITALS: BP 104/49; PULSE 102; TEMP 98.6
[2019-04-03 06:58] VITALS: BP 103/49; PULSE 107; TEMP 98.3
--- NOTE | 2019-04-03 07:02 | NUR ---
Lying in bed with eyes closed. Opens eyes when enter room. Patient says that she had a rough night with pain. Says that she couldn't get the Dilaudid because her BP was low. Patient requesting Dilaudid at this time. Explain that Dr. Dill is wanting her to try the oral medication first, reassess in an hour, then utilize the Dilaudid if no improvement in pain. Patient says that she has tried that and the oral meds do not work. Explain that it has been a while since she has taken the oral medication and maybe getting more on routine with taking the oral medications would help her pain. Patient says that she just wants to be able to get out of bed and not be in a lot of pain. Eyes jaundiced. 4+ bilat LE edema noted. PICC line to right upper arm without rednes/drainage/edema.
[2019-04-03 07:05] LABS: BASO % 0.4 % (0.0-2.0); EOS # 0.1 (0.0-0.7); EOS % 0.5 % (0-4.0); GRAN % 70.9 % (42.2-75.2); LYMPH # 2.1 (1.2-3.4); LYMPH % 18.5 % (20.0-51.0); MEAN CELL VOLUME 87 fl (80.0-100.0); MEAN CORPUSCULAR HGB CONC 31 g/dl (33.0-37.0); MEAN PLATELET VOLUME 10.8 fl (7.4-10.4); MONO # 1.1 (0.1-0.6); MONO % 9.3 % (1.7-9.3); PLATELET COUNT 196 K/mm3 (130-400); RED BLOOD COUNT 2.64 M/mm3 (4.10-5.30); REDCELL DISTRIBUTION WIDTH-CV 21.4 % (11.5-14.5)
[2019-04-03 07:09] LABS: HEMOGLOBIN 7.2 g/dl (12.5-16.0); MEAN CORPUSCULAR HEMOGLOBIN 27 pg (27.0-31.0)
[2019-04-03 07:22] LABS: ALBUMIN 2.3 gm/dL (3.5-5.0); CALCIUM 8.2 mg/dL (8.4-10.2); CREATININE, serum 0.52 (0.52-1.25); MAGNESIUM 1.4 mg/dL (1.6-2.3); POTASSIUM 3.4 mmol/L (3.4-5.0); TOTAL PROTEIN 5.7 gm/dL (6.4-8.2)
--- NOTE | 2019-04-03 08:36 | NUR ---
Rating pain 7/10 in abd and legs. Patient would like Dilaudid at this time. Dilaudid administered as prescribed. Patient lying in bed with eyes open. Says that she has been to the bathroom twice and had bloody stools. Explained that when the hospitalist rounds we will let them know that she continues to have the bloody stools. Patient denies further needs at this time.
--- NOTE | 2019-04-03 09:54 | NUR ---
Lying in bed with eyes closed. Resp even and unlabored. No signs or symptoms of discomfort noted at this time.
--- NOTE | 2019-04-03 11:16 | NUR ---
Rates pain 7/10 in abd and legs. Requests Roxicodone. Administers as prescribed. Patient denies further needs.
[2019-04-03 11:55] VITALS: BP 109/50; PULSE 108; TEMP 98.5
[2019-04-03 12:00] VITALS: BP 96/44; PULSE 109; TEMP 97.8
--- NOTE | 2019-04-03 12:49 | NUR ---
Reviewed with the patient pain medication changes. Patient requests clarification on doses and frequency with Dr. Dill. Dr. Dill notified that the patient would like to talk with him again regarding her pain medication. Rating pain 8/10 in abd and legs. Administered Dilaudid as prescribed at this time.
--- NOTE | 2019-04-03 14:05 | NUR ---
Patient says she has an "upset stomach" and would like medication. Administered Zofran as prescribed. Patient has questions about if she has to do a bowel prep and the colonoscopy. Questions answered. Patient verbalizes understanding and denies further needs at this time.
[2019-04-03 14:29] LABS: BASO % 0.3 % (0.0-2.0); EOS % 0.3 % (0-4.0); GRAN # 9.6 (1.4-6.5); GRAN % 75.3 % (42.2-75.2); LYMPH # 1.8 (1.2-3.4); LYMPH % 13.8 % (20.0-51.0); MEAN CELL VOLUME 87 fl (80.0-100.0); MEAN CORPUSCULAR HGB CONC 32 g/dl (33.0-37.0); MEAN PLATELET VOLUME 10.5 fl (7.4-10.4); MONO # 1.3 (0.1-0.6); MONO % 9.8 % (1.7-9.3); PLATELET COUNT 197 K/mm3 (130-400); RED BLOOD COUNT 2.58 M/mm3 (4.10-5.30); REDCELL DISTRIBUTION WIDTH-CV 21.4 % (11.5-14.5)
[2019-04-03 14:30] LABS: HEMATOCRIT 22.5 % (37.0-47.0); HEMOGLOBIN 7.2 g/dl (12.5-16.0); MEAN CORPUSCULAR HEMOGLOBIN 28 pg (27.0-31.0)
--- NOTE | 2019-04-03 15:09 | NUR ---
Rating pain 7/10 in abd and legs, request pain medication. Administered Roxicodone as prescribed. Patient lying in bed. Denies further needs at this time. Instructed the patient to notify staff when she has a stool so we can collect the specimen and send to lab. Patient verbalizes understanding.
[2019-04-03 15:44] VITALS: BP 91/34; PULSE 104; TEMP 98.7
--- NOTE | 2019-04-03 16:38 | NUR ---
Rating pain 7/10 in abd and legs. Administered Dilaudid as prescribed per patient request. Reviewed consent with the patient for possible colonoscopy in the morning. Patient denies questions and signs consent. Denies needs at this time. Consent placed in front of chart.
--- NOTE | 2019-04-03 18:19 | NUR ---
Lying in bed with eyes open watching TV and eating her clear liquid supper. Continues to rate pain 7/10 in abd and legs. Denies any further needs at this time.
--- NOTE | 2019-04-03 19:07 | NUR ---
Rating pain 7/10 in abd and legs. Administered Roxicodone as prescribed. Patient denies further needs.
[2019-04-03 20:00] VITALS: BP 103/55; PULSE 98; TEMP 98.3
--- NOTE | 2019-04-03 20:00 | NUR ---
PT RESTING IN BED. GROUCHY. C/O INCREASING LOW BILAT QUAD PAIN. AND LUMBAR PAIN. SEE MAR FOR PAIN MEDS GIVEN. DENIES NAUSEA. UP TO BR VOIDED. NO BM THIS TIME. STOOL LAB PENDING. PT APPLIED OINT TO BACK- RELATES IT VIVAR. ASSISTEDWITH WIPING IT OFF. LAB HERE. PULLED BLOOD FROM PICC LINE. PT AMB IN ROOM. STEADY GAIT. B/P BETTER 103/55. 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
--- NOTE | 2019-04-03 21:45 | NUR ---
NOTIFIED DR ELIZONDO H&H RESULT. BLOODY STOOL, PT REF TO START BOWEL PREP UNTIL GI PANEL RESULTS. GI PANEL PENDING. WONT BE COMPLETED UNTIL 1 03/11 OR MORE. OK TO WAIT UNTIL GI PANEL RESULTS BEFORE STARTING BOWEL PREP.
--- NOTE | 2019-04-03 23:47 | NUR ---
NOTIFIED DR ELIZONDO OF STOOL PANEL RESULT. WILL TOUCH BASE WITH Brody RODRIGUEZ THEN SHE WILL NOTIFY THI NURSE.
--- NOTE | 2019-04-03 23:58 | NUR ---
NEW ORDERS RECEIVED FROM DR ELIZONDO TO CANCEL COLONOSCOPY TOMORROW AND BOWEL PREP.
[2019-04-04] VITALS (15 sets, daily range): BP systolic 94–115; BP diastolic 33–59; PULSE 95–111; TEMP 98–98.8
--- NOTE | 2019-04-04 04:00 | NUR ---
RECIEIVING ROXICODONE Q4HR AND DILAUDID IV FOR BREAKTHROUGH PAIN. PT PRESENTLY MOANING LOUDLY WITH ABD PAIN. UP TO BR. VOIDED. MOVES AROUND IN ROOM WITH STEADY GAIT. BACK TO BED.
--- NOTE | 2019-04-04 04:38 | NUR ---
#3 DOSE OF ALBUMIN INFUSING TO PICC. PT HAS NOT HAD ANY FURTHER BLOODY STOOLS THIS SHIFT OTHER THAN ONE AT SHIFT CHANGE.
--- NOTE | 2019-04-04 06:28 | NUR ---
PT HAD LARGE LIQ AND SOFT BLOODY STOOL. TELE CALLED. SUSTAINED ST IN 120'S. PT HAD BEEN UP TO BR FOR BM. UP MOVING AROUND IN ROOM. LEAKED SMALL AMT BLOOD ON FLOOR.
[2019-04-04 07:54] LABS: BASO % 0.4 % (0.0-2.0); EOS % 0.2 % (0-4.0); GRAN # 7.6 (1.4-6.5); GRAN % 76.1 % (42.2-75.2); LYMPH % 9.8 % (20.0-51.0); MEAN CELL VOLUME 87 fl (80.0-100.0); MEAN CORPUSCULAR HGB CONC 32 g/dl (33.0-37.0); MEAN PLATELET VOLUME 12.3 fl (7.4-10.4); MONO # 1.3 (0.1-0.6); PLATELET COUNT 173 K/mm3 (130-400); RED BLOOD COUNT 2.28 M/mm3 (4.10-5.30); REDCELL DISTRIBUTION WIDTH-CV 21.7 % (11.5-14.5)
[2019-04-04 08:10] LABS: ALBUMIN 2.9 gm/dL (3.5-5.0); BILIRUBIN,TOTAL 5.7 mg/dL (0.0-1.0); CALCIUM 8.6 mg/dL (8.4-10.2); CREATININE, serum 0.52 (0.52-1.25); MAGNESIUM 1.8 mg/dL (1.6-2.3); POTASSIUM 3.6 mmol/L (3.4-5.0); TOTAL PROTEIN 6.1 gm/dL (6.4-8.2)
[2019-04-04 08:12] LABS: HEMATOCRIT 19.9 % (37.0-47.0); HEMOGLOBIN 6.3 g/dl (12.5-16.0); MEAN CORPUSCULAR HEMOGLOBIN 28 pg (27.0-31.0)
--- NOTE | 2019-04-04 09:30 | NUR ---
Patient up independent in room, complaints of pain requesting her pain medication, she is wanting her dilaudid now. Po medication offered first & dilaudid to be given for breakthrough pain. Patient did not want her clear liquid breakfast tray. made aware of her H&H of 6.3, one unit ordered & will be administered when ready. Student nurse assisting with cares today.
[2019-04-04 09:54] LABS: INR 1.8 (0.8-3.0); PROTHROMBIN TIME 20.9 SECONDS (9.7-12.8)
--- NOTE | 2019-04-04 11:50 | NUR ---
Patient resting in bed. More drowsy now that she has had IV dilaudid, still rating her pain a 7/10, but appears to be resting comfortably. Pain in her feet,legs & abdomen. Blood transfusion started per orders following policy. Infusing at 60ml/hr via picc in Rue. We reviews signs & sypmtoms of reactions. Will monitor at bedsidoe for 15 minutes.
--- NOTE | 2019-04-04 15:11 | NUR ---
Patient tolerated blood transfusion, no signs or symptoms of reaction. She continues to have complaints of abdominal pain. She was offered mylocin, she was not interested.
[2019-04-04 16:29] LABS: HEMATOCRIT 21.7 % (37.0-47.0); HEMOGLOBIN 6.9 g/dl (12.5-16.0)
--- NOTE | 2019-04-04 16:37 | NUR ---
notifed of H&H of 6.9. Order for second unit to be given. Will wait for blood bank to get ready
--- NOTE | 2019-04-04 18:36 | NUR ---
Patient sitting up in the chair. Second unit of blood started per orders. Blood policy followed. Verified with Fatoumata SOUSA. Infusing via picc at 60ml/hr. We again discussed signs & symptoms of transfusion reaction. Vitals stable. Nurse at bedside.
--- NOTE | 2019-04-04 20:00 | NUR ---
Report recieved. 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 Assessment complete. A&Ox3-drowsy. Currently receiving 2nd unit of PRBC. Rating pain 8/10 in abdomen-described as a constant burn/ache. Meds given per dr order. Denies shortness of breath/nausea. Denies passing any blood via stool since AM. Plan of care discussed for this shift. Denies questions or concerns. Will monitor.
[2019-04-04 23:27] LABS: MEAN CELL VOLUME 87 fl (80.0-100.0); MEAN CORPUSCULAR HGB CONC 33 g/dl (33.0-37.0); MEAN PLATELET VOLUME 11.2 fl (7.4-10.4); PLATELET COUNT 148 K/mm3 (130-400); RED BLOOD COUNT 2.83 M/mm3 (4.10-5.30); REDCELL DISTRIBUTION WIDTH-CV 19.3 % (11.5-14.5)
[2019-04-04 23:31] LABS: HEMATOCRIT 24.6 % (37.0-47.0); MEAN CORPUSCULAR HEMOGLOBIN 28 pg (27.0-31.0)
[2019-04-05] VITALS: BP 110/68; PULSE 95; TEMP 98
[2019-04-05 00:43] LABS: ANISOCYTOSIS 2+; BAND 8 % (0-10); LYMPHOCYTE 13 % (20.0-51.0); METAMYELOCYTE 1 % (0-0); NEUTROPHILS 67 % (42.0-75.2); PLATELET ESTIMATE NORMAL (NORMAL)
[2019-04-05 00:44] LABS: OVALOCYTES 1+; TARGET CELLS 1+
[2019-04-05 00:45] LABS: TEAR DROP CELLS 1+
[2019-04-05 03:15] VITALS: BP 112/54; PULSE 105; TEMP 98
[2019-04-05 07:46] LABS: MEAN CELL VOLUME 88 fl (80.0-100.0); MEAN CORPUSCULAR HGB CONC 32 g/dl (33.0-37.0); MEAN PLATELET VOLUME 10.7 fl (7.4-10.4); PLATELET COUNT 147 K/mm3 (130-400); RED BLOOD COUNT 2.88 M/mm3 (4.10-5.30); REDCELL DISTRIBUTION WIDTH-CV 19.9 % (11.5-14.5)
[2019-04-05 07:50] LABS: HEMATOCRIT 25.2 % (37.0-47.0); HEMOGLOBIN 8.1 g/dl (12.5-16.0); MEAN CORPUSCULAR HEMOGLOBIN 28 pg (27.0-31.0)
[2019-04-05 07:55] VITALS: BP 108/51; PULSE 104; TEMP 98.9
[2019-04-05 08:15] LABS: ALBUMIN 3.1 gm/dL (3.5-5.0); BILIRUBIN,TOTAL 6.1 mg/dL (0.0-1.0); CREATININE, serum 0.55 (0.52-1.25); MAGNESIUM 1.5 mg/dL (1.6-2.3); POTASSIUM 3.6 mmol/L (3.4-5.0); TOTAL PROTEIN 6.5 gm/dL (6.4-8.2)
--- NOTE | 2019-04-05 09:17 | NUR ---
Follow-up visit; Patient thanked Medicaid Collection Specialist for looking in on her and offering God's blessings.
[2019-04-05 10:07] LABS: BAND 1 % (0-10); BASOPHIL 1 % (0-2); LYMPHOCYTE 14 % (20.0-51.0); NEUTROPHILS 67 % (42.0-75.2); TARGET CELLS 3+
[2019-04-05 10:08] LABS: ANISOCYTOSIS 1+; MICROCYTOSIS 1+; OVALOCYTES 1+; POIKILOCYTOSIS 3+; TEAR DROP CELLS 1+
[2019-04-05 10:09] LABS: PLATELET ESTIMATE NORMAL (NORMAL)
--- NOTE | 2019-04-05 11:30 | NUR ---
AT BEDSIDE DISCUSSING POTENTIAL DISCHARGE FOR TOMORROW AND TRANSITION TO ORAL PAIN REGIME. PATIENT DID NOT WANT TO HEAR THIS. PATIENT STATES THE IV DILAUDID IS THE ONLY THING THAT HELPS WITH HER PAIN HOWEVER, STILL WANTS ORAL PAIN MEDS TOO. STRESSED THE IMPORTANCE OF A REFFERAL TO A PAIN AND LIVER SPECIALIST FROM HER PCP. PATIENT SEEMS UNINTERESTED. SHE BECAME TEARFUL STATING SHE DIDN'T WANT TO DISCHARGE HOME ON THE SAME PAIN MEDS SHE CAME IN ON. REMINDED HER SHE IS ALSO GETTING THE LONG ACTING OXYCONTIN AND PRN ROXICODONE FOR PAIN MANAGEMENT. PATIENT STILL VERY UPSET ABOUT NOT GETTING THE IV DILAUDID EVEN THOUGH THIS HAS BEEN HER PLAN, TO WEAN OFF THE IV PAIN MEDS AND ONTO ORAL, DURING HER STAY. PATIENT FIRST STATED "I DONT WANT TO STAY ANOTHER N DAY". THERE WAS SOME SILENCE IN THE ROOM AND THE PATIENT STATED "OKAY, I WILL STAY BUT I WANT YOU BOTH TO LEAVE NOW". NURSING AND PHYSICIAN RESPECTED HER WISHES AND LEFT ROOM. NURSING TOLD PATIENT TO PLEASE CALL IS SHE NEEDS ANYTHING, AND WILL RETURN WHEN ORAL PAIN MEDS ARE DUE.
[2019-04-05 14:45] LABS: PATHOLOGY DIFF REVIEW OK
[2019-04-05 15:54] VITALS: BP 106/53; PULSE 96; TEMP 98.9
[2019-04-05 19:45] VITALS: BP 101/54; PULSE 99; TEMP 98.6
--- NOTE | 2019-04-05 19:45 | NUR ---
Shift assessment complete. Patient in bed, awake, playing on phone. States her pain is 7/10 in her BLE and abdomen. She is requesting prn pain medication. Prn pain medication given, will give scheduled pain medication when it is due, at 2100. Refusing several of her medications. Son and boyfriend at bedside. Declines further needs at this time. Will continue to monitor.
--- NOTE | 2019-04-05 21:00 | NUR ---
Patient in bed, awake. Playing on phone. States prn pain medication not effective. Scheduled pain medication given. Dr. Dill had extensive conversation with pt today about the d/c of IV pain meds. Patient appears irritated, but does not ask for additional pain medication. Will continue to reassess pain. Denies further needs at this time.
[2019-04-05 23:52] VITALS: BP 103/46; PULSE 103; TEMP 98.3
[2019-04-06 03:23] VITALS: BP 116/61; PULSE 103; TEMP 98.1
--- NOTE | 2019-04-06 05:00 | NUR ---
Patient in bed, resting. States pain 09/16. Prn pain medication given. Denies further needs at this time. Will continue to monitor.
[2019-04-06 07:51] VITALS: BP 109/55; PULSE 100; TEMP 98.3
[2019-04-06] MEDS ORDERED: CIPRO 500MG TA500 MG PO (07:55)
[2019-04-06] MEDS ORDERED: MACROBID 1100 MG/CAP PO (07:56)
[2019-04-06] MEDS ORDERED: LOPRESSOR 225 MG/TAB PO (07:58)
[2019-04-06] MEDS ORDERED: ALDACTONE 100M100 MG PO (07:59)
[2019-04-06] MEDS ORDERED: LASIX 40MG TABL40 MG PO (08:00)
[2019-04-06] MEDS ORDERED: CARAFATE S1 GM/10 ML PO (08:01)
[2019-04-06] MEDS ORDERED: SENNA-S 50 MG-81 TAB PO (08:01)
[2019-04-06] MEDS ORDERED: FOLIC ACID 11 MG/TA1 PO (08:02)
[2019-04-06] MEDS ORDERED: MULTI-VITAMIN W1 TA1 PO (08:02)
[2019-04-06] MEDS ORDERED: PROTONIX 40MG T40 MG PO (08:02)
[2019-04-06] MEDS ORDERED: THIAMINE 1100 MG/TAB PO (08:02)
[2019-04-06 08:36] LABS: MEAN CELL VOLUME 85 fl (80.0-100.0); MEAN CORPUSCULAR HGB CONC 33 g/dl (33.0-37.0); MEAN PLATELET VOLUME 11.6 fl (7.4-10.4); PLATELET COUNT 150 K/mm3 (130-400); RED BLOOD COUNT 2.87 M/mm3 (4.10-5.30); REDCELL DISTRIBUTION WIDTH-CV 19.9 % (11.5-14.5)
--- NOTE | 2019-04-06 08:40 | NUR ---
Sitting up in chair with eyes open eating breakfast. Has 4+ bilat LE edema. Rates pain 7/10 in abd and legs. Denies needs.
[2019-04-06 08:51] LABS: BILIRUBIN,TOTAL 5.7 mg/dL (0.0-1.0); CALCIUM 8.9 mg/dL (8.4-10.2); CREATININE, serum 0.5 (0.52-1.25); MAGNESIUM 1.4 mg/dL (1.6-2.3); POTASSIUM 3.9 mmol/L (3.4-5.0); TOTAL PROTEIN 6.5 gm/dL (6.4-8.2)
[2019-04-06] MEDS ORDERED: K-TAB20 PO (08:52)
[2019-04-06] MEDS ORDERED: ROXICODONE 55 MG/TAB PO (08:54)
[2019-04-06] MEDS ORDERED: OXYCONTIN 20MG20 MG PO (08:54)
[2019-04-06 08:58] LABS: HEMATOCRIT 24.4 % (37.0-47.0); HEMOGLOBIN 8.1 g/dl (12.5-16.0); MEAN CORPUSCULAR HEMOGLOBIN 28 pg (27.0-31.0)
[2019-04-06 09:29] LABS: BAND 6 % (0-10); CORRECTED WBC 0.2 K/mm3; EOSINOPHIL 1 % (0-4); LYMPHOCYTE 22 % (20.0-51.0); METAMYELOCYTE 2 % (0-0); MYELOCYTE 1 % (0-0); NEUTROPHILS 59 % (42.0-75.2); OVALOCYTES 1+; PLATELET ESTIMATE NORMAL (NORMAL); TARGET CELLS 2+; TEAR DROP CELLS 1+
--- NOTE | 2019-04-06 09:58 | NUR ---
Rating pain 6/10 in abd and legs. Roxicodone administered as prescribed per patient request.
--- NOTE | 2019-04-06 10:30 | NUR ---
Reviewed all discharge instructions with the patient. All questions answered. Discharge packet provided to the patient with all information. Patient signs discharge paperwork.
--- NOTE | 2019-04-06 10:30 | NUR ---
Clerical Transcriber attended clinical rounds with the team and patient to discharge home today. Patient expressed concern about finances and affording medical care post discharge. SW met with patient following rounding and patient states she can afford her prescriptions right now but with being self pay, she may not be able to in the future. Patient currently sees Dr. Morgan for primary care. SW spoke with patient about exploring primary care services and medication management through [facility]. SW advised patient would need to complete their forms for sliding fee scale. Patient reports she has heard of [facility] and will consider getting set up with them as it would be more affordable. SW also spoke with patient about importance of following with [employer] application and the requested documentation. Patient reports she is working on [employer] and [employer] Financial Assistance Application. Patient to discharge home and has no further questions at this time.
[2019-04-06 11:21] VITALS: BP 116/59; PULSE 107; TEMP 99.1
--- NOTE | 2019-04-06 11:50 | NUR ---
Patient's boyfriend here to get patient to take her home by POV. Patient has all personal belongings and discharge paperwork. Denies any further concerns or needs. MYCHAL Potter, assists patient out to vehicle.
== END 2019-04-06 11:51 | disposition home or self-care (01) | DRG 872 ==
LOC: COL.ER 16:18 → SURG 18:26
PROVIDERS: Family Medicine; Internal Medicine; Internal Medicine Gastroenterology; Nurse Practitioner Family; Physician Assistant; Student in an Organized Health Care Education/Training Program; ADMIT Hospitalist
PROC: 02HV33Z Insertion of Infusion Device into Superior Vena Cava, Percutaneous Approach (ICD-10-PCS; principal; 2019-03-29)
DX: A41.9 Sepsis, unspecified organism (principal); D68.9 Coagulation defect, unspecified; N39.0 Urinary tract infection, site not specified; I47.1 Supraventricular tachycardia; K21.9 Gastro-esophageal reflux disease without esophagitis; G89.29 Other chronic pain; K70.10 Alcoholic hepatitis without ascites; G43.909 Migraine, unspecified, not intractable, without status migrainosus; E87.6 Hypokalemia; E83.42 Hypomagnesemia; I48.91 Unspecified atrial fibrillation; R91.1 Solitary pulmonary nodule; D53.9 Nutritional anemia, unspecified; F41.9 Anxiety disorder, unspecified; B96.20 Unspecified Escherichia coli [E. coli] as the cause of diseases classified elsewhere; F32.9 Major depressive disorder, single episode, unspecified; Z87.891 Personal history of nicotine dependence
CPT/HCPCS: OP; 99223-AI; 99232-AI; 99233-AI; 99239; A4216; C1751; C9113; J0696; J1170; J1200; J1630; J2020; J2405; J2550; J2704; J3430; J3475; J3480; J7030; P9016; P9047; Q9967

== ENCOUNTER 2019-04-20 13:19 | Emergency (ER) | payer SELFPAY ==
[~2019-04-20] VITALS: Ht 172.7 cm; Wt 88.6 kg
[~2019-04-20 13:19] MED LIST changes: +ALDACTONE 100M100 MG PO; +FOLIC ACID 11 MG/TA1 PO; +K-TAB20 PO; +LASIX 40MG TABL40 MG PO; +LOPRESSOR 225 MG/TAB PO; +MULTI-VITAMIN W1 TA1 PO; +OXYCONTIN 20MG20 MG PO; +PROTONIX 40MG T40 MG PO; +ROXICODONE 55 MG/TAB PO; +SENNA-S 50 MG-81 TAB PO; +THIAMINE 1100 MG/TAB PO; +VOLTAREN GEL 1%1 TU TP
[2019-04-20 13:37] VITALS: BP 113/54; TEMP 98.3
[2019-04-20 14:54] LABS: BASO % 0.3 % (0.0-2.0); EOS % 0.3 % (0-4.0); GRAN # 6.2 (1.4-6.5); GRAN % 60.3 % (42.2-75.2); LYMPH # 2.5 (1.2-3.4); LYMPH % 24.2 % (20.0-51.0); MEAN CELL VOLUME 83 fl (80.0-100.0); MEAN CORPUSCULAR HGB CONC 33 g/dl (33.0-37.0); MEAN PLATELET VOLUME 10.7 fl (7.4-10.4); MONO # 1.5 (0.1-0.6); MONO % 14.5 % (1.7-9.3); PLATELET COUNT 316 K/mm3 (130-400); RED BLOOD COUNT 3.34 M/mm3 (4.10-5.30); REDCELL DISTRIBUTION WIDTH-CV 22.8 % (11.5-14.5)
[2019-04-20 14:57] LABS: HEMATOCRIT 27.7 % (37.0-47.0); MEAN CORPUSCULAR HEMOGLOBIN 27 pg (27.0-31.0)
[2019-04-20 15:05] LABS: ALBUMIN 3.2 gm/dL (3.5-5.0); BILIRUBIN,TOTAL 6.2 mg/dL (0.0-1.0); C-REACTIVE PROTEIN 2.7 mg/dL (0.0-0.9); CALCIUM 8.9 mg/dL (8.4-10.2); CREATININE, serum 0.31 (0.52-1.25); TOTAL PROTEIN 7.2 gm/dL (6.4-8.2)
[2019-04-20 15:23] LABS: POTASSIUM 2.7 mmol/L (3.4-5.0)
[2019-04-20 15:24] LABS: INR 1.8 (0.8-3.0); PROTHROMBIN TIME 21.4 SECONDS (9.7-12.8)
[2019-04-20 16:39] LABS: COLLECTION METHOD CLEAN CATCH
[2019-04-20 16:48] LABS: MUCOUS Present /lpf; PH 9 (5-8); URINE APPEARANCE Hazy; URINE BACTERIA None Seen /hpf; URINE BILIRUBIN Positive (NEGATIVE); URINE BLOOD Negative (NEGATIVE); URINE COLOR Amber; URINE GLUCOSE Negative (NEGATIVE); URINE KETONE Negative (NEGATIVE); URINE LEUKOCYTE ESTERASE Negative (NEGATIVE); URINE NITRATE Negative (NEGATIVE); URINE PROTEIN(semi-quant) 2+ (NEGATIVE); URINE RBC 0-2 /hpf
[2019-04-20] MEDS ORDERED: NORCO 325 MG-51 TAB PO (17:38)
[2019-04-20] MEDS ORDERED: K-TAB10 PO (17:38)
[2019-04-20] MEDS ORDERED: ZOFRAN ODT4 MG PO (18:09)
[2019-04-20 18:57] VITALS: PULSE 100
[2019-04-21] MEDS ORDERED: CARAFATE S1 GM/10 ML PO (16:06)
[2019-04-21] MEDS ORDERED: PHENERGAN 25 TA25 MG PO (16:06)
== END 2019-04-20 18:51 | disposition home or self-care (01) ==
LOC: COL.ER 13:19
PROVIDERS: Family Medicine
DX: K70.10 Alcoholic hepatitis without ascites (principal); Z87.891 Personal history of nicotine dependence; F10.20 Alcohol dependence, uncomplicated
CPT/HCPCS: C9113; J2405; J2550; J3010; J3411; J7030

== ENCOUNTER 2019-04-21 12:58 | Emergency (ER) | payer SELFPAY ==
[~2019-04-21] VITALS: Ht 172.7 cm; Wt 88.6 kg
[2019-04-21 13:06] VITALS: TEMP 98.5
[2019-04-21 14:03] LABS: BASO % 0.4 % (0.0-2.0); EOS # 0.1 (0.0-0.7); GRAN # 4.2 (1.4-6.5); GRAN % 56.8 % (42.2-75.2); LYMPH # 2.1 (1.2-3.4); LYMPH % 29.1 % (20.0-51.0); MEAN CELL VOLUME 84 fl (80.0-100.0); MEAN CORPUSCULAR HGB CONC 33 g/dl (33.0-37.0); MEAN PLATELET VOLUME 11.9 fl (7.4-10.4); MONO # 0.9 (0.1-0.6); MONO % 11.7 % (1.7-9.3); PLATELET COUNT 271 K/mm3 (130-400); RED BLOOD COUNT 3.11 M/mm3 (4.10-5.30); REDCELL DISTRIBUTION WIDTH-CV 23.2 % (11.5-14.5)
[2019-04-21 14:05] LABS: INR 1.8 (0.8-3.0); PROTHROMBIN TIME 21.7 SECONDS (9.7-12.8)
[2019-04-21 14:06] LABS: HEMOGLOBIN 8.5 g/dl (12.5-16.0); MEAN CORPUSCULAR HEMOGLOBIN 27 pg (27.0-31.0)
[2019-04-21 14:07] LABS: PARTIAL THROMBOPLASTIN TIME 41.8 SECONDS (26.0-37.0)
[2019-04-21 14:10] LABS: ALANINE AMINOTRANSFERASE 30 U/L (9-52); ALBUMIN 3.1 gm/dL (3.5-5.0); ALKALINE PHOSPHATASE 121 U/L (50-136); ANION GAP 8 mmol/L (7-16); AST,SGOT 178 U/L (15-37); BILIRUBIN,TOTAL 6.6 mg/dL (0.0-1.0); BLOOD UREA NITROGEN 7 mg/dL (7-17); CALCIUM 8.5 mg/dL (8.4-10.2); CARBON DIOXIDE 25 mmol/L (22-30); CHLORIDE 104 mmol/L (98-107); CREATININE, serum 0.38 (0.52-1.25); GLUCOSE 80 mg/dL (74-106); LIPASE 301 U/L (23-300); MAGNESIUM 1.8 mg/dL (1.6-2.3); SODIUM 137 mmol/L (137-145)
[2019-04-21 14:21] LABS: COLLECTION METHOD CLEAN CATCH
[2019-04-21 14:22] LABS: ALCOHOL(ethanol),MEDICAL < 10 mg/dL
[2019-04-21 14:28] LABS: MUCOUS Present /lpf; PH 9 (5-8); URINE APPEARANCE Clear; URINE BACTERIA None Seen /hpf; URINE BILIRUBIN Negative (NEGATIVE); URINE BLOOD Negative (NEGATIVE); URINE COLOR Amber; URINE GLUCOSE Negative (NEGATIVE); URINE KETONE Trace (NEGATIVE); URINE LEUKOCYTE ESTERASE Negative (NEGATIVE); URINE NITRATE Negative (NEGATIVE); URINE PROTEIN(semi-quant) 1+ (NEGATIVE); URINE RBC 0-2 /hpf
[2019-04-21] MEDS ORDERED: CARAFATE S1 GM/10 ML PO (16:06)
[2019-04-21] MEDS ORDERED: PHENERGAN 25 TA25 MG PO (16:06)
[2019-04-21 17:53] VITALS: BP 121/78; PULSE 71
== END 2019-04-21 17:53 | disposition home or self-care (01) ==
LOC: COL.ER 12:58
PROVIDERS: Emergency Medicine
DX: K70.10 Alcoholic hepatitis without ascites (principal); K21.9 Gastro-esophageal reflux disease without esophagitis
CPT/HCPCS: C9113; J1170; J1200; J1630; J2550; J7030; J7040

== ENCOUNTER 2019-04-25 21:34 | Emergency (ER) | payer SELFPAY ==
[~2019-04-25] VITALS: Ht 172.7 cm; Wt 88.6 kg
[~2019-04-25 21:34] MED LIST changes: +PHENERGAN 25 TA25 MG PO
[2019-04-25 21:48] VITALS: BP 110/69; PULSE 91; TEMP 98.6
== END 2019-04-25 22:15 | disposition left against medical advice (07) ==
LOC: COL.ER 21:34
DX: R10.9 Unspecified abdominal pain (principal)

== ENCOUNTER 2019-04-26 14:50 | Emergency (ER) | payer SELFPAY ==
[~2019-04-26] VITALS: Ht 172.7 cm; Wt 88.6 kg
[2019-04-26 14:58] VITALS: BP 108/51; TEMP 98.6
[2019-04-26 15:48] LABS: COLLECTION METHOD CLEAN CATCH
[2019-04-26 16:02] LABS: MUCOUS Present /lpf; PH 7 (5-8); URINE APPEARANCE Cloudy; URINE BACTERIA Many /hpf; URINE BILIRUBIN Positive (NEGATIVE); URINE BLOOD Negative (NEGATIVE); URINE COLOR Amber; URINE GLUCOSE Negative (NEGATIVE); URINE KETONE Negative (NEGATIVE); URINE LEUKOCYTE ESTERASE Negative (NEGATIVE); URINE NITRATE Negative (NEGATIVE); URINE PROTEIN(semi-quant) 1+ (NEGATIVE); URINE UROBILINOGEN >=4.0 mg/dL (NEGATIVE)
[2019-04-26 19:33] LABS: BASO % 0.3 % (0.0-2.0); EOS # 0.1 (0.0-0.7); EOS % 0.6 % (0-4.0); GRAN # 6.1 (1.4-6.5); GRAN % 58.9 % (42.2-75.2); LYMPH # 3.4 (1.2-3.4); LYMPH % 32.7 % (20.0-51.0); MEAN CELL VOLUME 82 fl (80.0-100.0); MEAN CORPUSCULAR HGB CONC 33 g/dl (33.0-37.0); MEAN PLATELET VOLUME 10.7 fl (7.4-10.4); MONO # 0.7 (0.1-0.6); MONO % 7.2 % (1.7-9.3); PLATELET COUNT 212 K/mm3 (130-400); RED BLOOD COUNT 3.23 M/mm3 (4.10-5.30); REDCELL DISTRIBUTION WIDTH-CV 23.3 % (11.5-14.5)
[2019-04-26 19:34] LABS: HEMATOCRIT 26.4 % (37.0-47.0); HEMOGLOBIN 8.7 g/dl (12.5-16.0); MEAN CORPUSCULAR HEMOGLOBIN 27 pg (27.0-31.0)
[2019-04-26 19:42] LABS: ALBUMIN 2.9 gm/dL (3.5-5.0); BILIRUBIN,TOTAL 5.3 mg/dL (0.0-1.0); CALCIUM 8.3 mg/dL (8.4-10.2); CREATININE, serum 0.35 (0.52-1.25); TOTAL PROTEIN 6.9 gm/dL (6.4-8.2)
[2019-04-26 19:49] LABS: POTASSIUM 2.9 mmol/L (3.4-5.0)
[2019-04-26 20:27] VITALS: PULSE 96
== END 2019-04-26 20:28 | disposition home or self-care (01) ==
LOC: COL.ER 14:50
PROVIDERS: Family Medicine
DX: E87.6 Hypokalemia (principal); E86.0 Dehydration; R11.2 Nausea with vomiting, unspecified; K21.9 Gastro-esophageal reflux disease without esophagitis; Z87.891 Personal history of nicotine dependence; Z87.442 Personal history of urinary calculi
CPT/HCPCS: J1885; J2405; J3010; J7030

== ENCOUNTER 2019-04-27 14:30 | Emergency (ER) | payer SELFPAY ==
[~2019-04-27] VITALS: Ht 172.7 cm; Wt 88.6 kg
[2019-04-27 17:49] LABS: BASO % 0.4 % (0.0-2.0); EOS % 0.4 % (0-4.0); GRAN # 5.3 (1.4-6.5); GRAN % 54.6 % (42.2-75.2); LYMPH # 3.5 (1.2-3.4); LYMPH % 35.6 % (20.0-51.0); MEAN CELL VOLUME 82 fl (80.0-100.0); MEAN CORPUSCULAR HGB CONC 32 g/dl (33.0-37.0); MEAN PLATELET VOLUME 10.3 fl (7.4-10.4); MONO # 0.9 (0.1-0.6); MONO % 8.7 % (1.7-9.3); PLATELET COUNT 222 K/mm3 (130-400); RED BLOOD COUNT 3.47 M/mm3 (4.10-5.30)
[2019-04-27 17:54] LABS: HEMATOCRIT 28.6 % (37.0-47.0); HEMOGLOBIN 9.2 g/dl (12.5-16.0); MEAN CORPUSCULAR HEMOGLOBIN 27 pg (27.0-31.0)
[2019-04-27 18:04] LABS: ALBUMIN 3.2 gm/dL (3.5-5.0); BILIRUBIN,TOTAL 5.5 mg/dL (0.0-1.0); C-REACTIVE PROTEIN 1.7 mg/dL (0.0-0.9); CALCIUM 8.6 mg/dL (8.4-10.2); CREATININE, serum 0.41 (0.52-1.25); POTASSIUM 3.3 mmol/L (3.4-5.0); TOTAL PROTEIN 7.3 gm/dL (6.4-8.2)
[2019-04-27 19:06] LABS: INR 1.6 (0.8-3.0); PROTHROMBIN TIME 18.6 SECONDS (9.7-12.8)
[2019-04-27 21:50] VITALS: BP 118/82; PULSE 82; TEMP 97.9
== END 2019-04-27 21:59 | disposition short-term general hospital (02) ==
LOC: COL.ER 14:30
PROVIDERS: Emergency Medicine
DX: R10.84 Generalized abdominal pain (principal)
CPT/HCPCS: C9113; J0692; J0780; J1200; J1940; J3010; J3480; Q9967

== ENCOUNTER 2019-05-01 16:25 | Emergency (ER) | payer SELFPAY ==
[~2019-05-01] VITALS: Ht 172.7 cm; Wt 86.4 kg
[2019-05-01 17:30] LABS: ALBUMIN 3.3 gm/dL (3.5-5.0); BILIRUBIN,TOTAL 4.6 mg/dL (0.0-1.0); CALCIUM 8.4 mg/dL (8.4-10.2); CREATININE, serum 0.36 (0.52-1.25); TOTAL PROTEIN 7.4 gm/dL (6.4-8.2)
[2019-05-01 17:32] LABS: POTASSIUM 2.8 mmol/L (3.4-5.0)
[2019-05-01 17:41] LABS: INR 1.6 (0.8-3.0)
[2019-05-01 17:45] LABS: BASO # 0.1 (0.0-0.2); BASO % 0.5 % (0.0-2.0); EOS % 0.1 % (0-4.0); GRAN # 5.9 (1.4-6.5); LYMPH # 2.7 (1.2-3.4); LYMPH % 28.8 % (20.0-51.0); MEAN CELL VOLUME 82 fl (80.0-100.0); MEAN CORPUSCULAR HGB CONC 33 g/dl (33.0-37.0); MEAN PLATELET VOLUME 10.2 fl (7.4-10.4); MONO # 0.7 (0.1-0.6); MONO % 7.2 % (1.7-9.3); PLATELET COUNT 214 K/mm3 (130-400); RED BLOOD COUNT 3.43 M/mm3 (4.10-5.30)
[2019-05-01 17:47] LABS: HEMOGLOBIN 9.2 g/dl (12.5-16.0); MEAN CORPUSCULAR HEMOGLOBIN 27 pg (27.0-31.0)
[2019-05-01 18:30] LABS: COLLECTION METHOD CLEAN CATCH
[2019-05-01 19:07] LABS: MUCOUS Present /lpf; PH 8 (5-8); URINE APPEARANCE Hazy; URINE BACTERIA Rare /hpf; URINE BILIRUBIN Negative (NEGATIVE); URINE BLOOD Negative (NEGATIVE); URINE COLOR Amber; URINE GLUCOSE Negative (NEGATIVE); URINE KETONE Negative (NEGATIVE); URINE LEUKOCYTE ESTERASE Negative (NEGATIVE); URINE NITRATE Negative (NEGATIVE); URINE PROTEIN(semi-quant) Negative (NEGATIVE); URINE RBC 0-2 /hpf
[2019-05-01] MEDS ORDERED: MAG-OX 400400 MG/TAB PO (19:26)
[2019-05-01] MEDS ORDERED: ZOFRAN ODT8 MG PO (19:40)
[2019-05-01 19:47] VITALS: BP 112/54; PULSE 90; TEMP 98.1
== END 2019-05-01 19:47 | disposition home or self-care (01) ==
LOC: COL.ER 16:25
PROVIDERS: Emergency Medicine
DX: K70.10 Alcoholic hepatitis without ascites (principal); F10.129 Alcohol abuse with intoxication, unspecified; E83.42 Hypomagnesemia; E87.6 Hypokalemia; Z91.14 Patient's other noncompliance with medication regimen; Y90.8 Blood alcohol level of 240 mg/100 ml or more
CPT/HCPCS: J2550; J3010; J3475

== ENCOUNTER 2019-05-06 20:48 | Emergency (ER) | payer SELFPAY ==
[~2019-05-06] VITALS: Ht 172.7 cm; Wt 86.4 kg
[~2019-05-06 20:48] MED LIST changes: +MAG-OX 400400 MG/TAB PO; +ZOFRAN ODT8 MG PO
[2019-05-06 20:50] VITALS: BP 114/58; PULSE 106; TEMP 97.1
[2019-05-06 21:47] LABS: BASO % 0.3 % (0.0-2.0); EOS % 0.4 % (0-4.0); GRAN # 5.4 (1.4-6.5); GRAN % 53.2 % (42.2-75.2); LYMPH # 3.7 (1.2-3.4); LYMPH % 36.2 % (20.0-51.0); MEAN CELL VOLUME 83 fl (80.0-100.0); MEAN CORPUSCULAR HGB CONC 33 g/dl (33.0-37.0); MONO % 9.5 % (1.7-9.3); PLATELET COUNT 192 K/mm3 (130-400); RED BLOOD COUNT 3.59 M/mm3 (4.10-5.30); REDCELL DISTRIBUTION WIDTH-CV 24.3 % (11.5-14.5)
[2019-05-06 21:51] LABS: HEMATOCRIT 29.8 % (37.0-47.0); HEMOGLOBIN 9.7 g/dl (12.5-16.0); MEAN CORPUSCULAR HEMOGLOBIN 27 pg (27.0-31.0)
[2019-05-06 21:53] LABS: INR 1.7 (0.8-3.0); PROTHROMBIN TIME 19.6 SECONDS (9.7-12.8)
[2019-05-06 22:03] LABS: ALANINE AMINOTRANSFERASE 43 U/L (9-52); ALBUMIN 3.5 gm/dL (3.5-5.0); ALCOHOL(ethanol),MEDICAL 228 mg/dL; ALKALINE PHOSPHATASE 226 U/L (50-136); ANION GAP 13 mmol/L (7-16); AST,SGOT 244 U/L (15-37); BILIRUBIN,TOTAL 5.3 mg/dL (0.0-1.0); C-REACTIVE PROTEIN 1.5 mg/dL (0.0-0.9); CALCIUM 8.8 mg/dL (8.4-10.2); CARBON DIOXIDE 25 mmol/L (22-30); CHLORIDE 106 mmol/L (98-107); CREATININE, serum 0.41 (0.52-1.25); GLUCOSE 108 mg/dL (74-106); LIPASE 66 U/L (23-300); SODIUM 145 mmol/L (137-145); TOTAL PROTEIN 8.1 gm/dL (6.4-8.2)
[2019-05-06 22:09] LABS: BLOOD UREA NITROGEN < 2 mg/dL (7-17); POTASSIUM 2.6 mmol/L (3.4-5.0)
[2019-05-06] MEDS ORDERED: ZOFRAN 4MG T4 MG/TAB PO (23:09)
== END 2019-05-06 23:53 | disposition left against medical advice (07) ==
LOC: COL.ER 20:48
PROVIDERS: Emergency Medicine
DX: K70.10 Alcoholic hepatitis without ascites (principal); E87.6 Hypokalemia; R19.7 Diarrhea, unspecified; F10.10 Alcohol abuse, uncomplicated
CPT/HCPCS: J0780; J1170; J2405; J3010; J3475; J7030

== ENCOUNTER 2019-05-08 13:39 | Emergency (ER) | payer SELFPAY ==
[~2019-05-08] VITALS: Ht 172.7 cm; Wt 86.4 kg
[2019-05-08 13:46] VITALS: TEMP 96.9
[2019-05-08 14:24] LABS: BASO % 0.2 % (0.0-2.0); EOS % 0.4 % (0-4.0); GRAN % 57.2 % (42.2-75.2); LYMPH # 3.3 (1.2-3.4); LYMPH % 31.6 % (20.0-51.0); MEAN CELL VOLUME 84 fl (80.0-100.0); MEAN CORPUSCULAR HGB CONC 33 g/dl (33.0-37.0); MEAN PLATELET VOLUME 10.2 fl (7.4-10.4); MONO # 1.1 (0.1-0.6); MONO % 10.3 % (1.7-9.3); PLATELET COUNT 159 K/mm3 (130-400); RED BLOOD COUNT 3.54 M/mm3 (4.10-5.30); REDCELL DISTRIBUTION WIDTH-CV 24.7 % (11.5-14.5)
[2019-05-08 14:25] LABS: HEMATOCRIT 29.7 % (37.0-47.0); HEMOGLOBIN 9.7 g/dl (12.5-16.0); INR 1.9 (0.8-3.0); MEAN CORPUSCULAR HEMOGLOBIN 27 pg (27.0-31.0); PROTHROMBIN TIME 22.2 SECONDS (9.7-12.8)
[2019-05-08] MEDS ORDERED: MAG-OX 400400 MG/TAB PO (14:38)
[2019-05-08 14:48] LABS: ALBUMIN 3.2 gm/dL (3.5-5.0); BILIRUBIN,TOTAL 5.5 mg/dL (0.0-1.0); CALCIUM 8.6 mg/dL (8.4-10.2); CREATININE, serum 0.38 (0.52-1.25); MAGNESIUM 1.9 mg/dL (1.6-2.3); TOTAL PROTEIN 7.8 gm/dL (6.4-8.2)
[2019-05-08 14:54] LABS: POTASSIUM 2.6 mmol/L (3.4-5.0)
[2019-05-08 15:04] LABS: COLLECTION METHOD CLEAN CATCH
[2019-05-08 15:12] LABS: MUCOUS Present /lpf; PH 8 (5-8); URINE APPEARANCE Clear; URINE BACTERIA Rare /hpf; URINE BILIRUBIN Negative (NEGATIVE); URINE BLOOD Negative (NEGATIVE); URINE COLOR Amber; URINE GLUCOSE Negative (NEGATIVE); URINE KETONE Negative (NEGATIVE); URINE LEUKOCYTE ESTERASE Negative (NEGATIVE); URINE NITRATE Negative (NEGATIVE); URINE PROTEIN(semi-quant) Negative (NEGATIVE); URINE UROBILINOGEN >=4.0 mg/dL (NEGATIVE)
[2019-05-08 16:00] VITALS: BP 107/64; PULSE 94
== END 2019-05-08 16:25 | disposition left against medical advice (07) ==
LOC: COL.ER 13:39
PROVIDERS: Emergency Medicine
DX: K29.20 Alcoholic gastritis without bleeding (principal); E87.6 Hypokalemia; Y90.8 Blood alcohol level of 240 mg/100 ml or more
CPT/HCPCS: C9113; J1170; J2405; J2550; J3411; J3475; J3480; J7030

== ENCOUNTER 2019-05-08 20:48 | Inpatient (IN) | payer SELFPAY ==
[~2019-05-08] VITALS: Ht 172.7 cm; Wt 83.3 kg
[2019-05-08 22:23] LABS: BASO % 0.3 % (0.0-2.0); EOS # 0.1 (0.0-0.7); EOS % 0.6 % (0-4.0); GRAN # 5.6 (1.4-6.5); GRAN % 55.2 % (42.2-75.2); LYMPH # 3.3 (1.2-3.4); LYMPH % 32.6 % (20.0-51.0); MEAN CELL VOLUME 82 fl (80.0-100.0); MEAN CORPUSCULAR HGB CONC 33 g/dl (33.0-37.0); MEAN PLATELET VOLUME 10.2 fl (7.4-10.4); MONO # 1.1 (0.1-0.6); MONO % 10.9 % (1.7-9.3); PLATELET COUNT 138 K/mm3 (130-400); RED BLOOD COUNT 3.13 M/mm3 (4.10-5.30); REDCELL DISTRIBUTION WIDTH-CV 23.9 % (11.5-14.5)
[2019-05-08 22:24] LABS: HEMATOCRIT 25.7 % (37.0-47.0); HEMOGLOBIN 8.4 g/dl (12.5-16.0); MEAN CORPUSCULAR HEMOGLOBIN 27 pg (27.0-31.0)
[2019-05-08 22:31] LABS: ALBUMIN 2.8 gm/dL (3.5-5.0); BILIRUBIN,TOTAL 4.9 mg/dL (0.0-1.0); CALCIUM 7.7 mg/dL (8.4-10.2); CREATININE, serum 0.34 (0.52-1.25)
[2019-05-08 22:36] LABS: POTASSIUM 2.8 mmol/L (3.4-5.0)
[2019-05-09] VITALS (241 sets, daily range): BP systolic 109–125; BP diastolic 43–72; PULSE 106–128; TEMP 98.2–98.9; O2SAT 92–100
[2019-05-09 01:09] LABS: INR 1.9 (0.8-3.0); PROTHROMBIN TIME 22.5 SECONDS (9.7-12.8)
--- NOTE | 2019-05-09 02:30 | NUR ---
Reporting 7/10 abdominal pain and nausea. PRN Zofran and dilaudid administered.
--- NOTE | 2019-05-09 03:00 | NUR ---
Patient unable to void after multiple tries. Bladder scanned showed 298 mls in bladder. Placed external female catheter for patient comfort. Will continue to monitor.
--- NOTE | 2019-05-09 04:30 | NUR ---
Patient requested external catheter be removed. Removed at this time.
[2019-05-09 04:59] LABS: MEAN CELL VOLUME 84 fl (80.0-100.0); MEAN CORPUSCULAR HGB CONC 33 g/dl (33.0-37.0); MEAN PLATELET VOLUME 9.7 fl (7.4-10.4); PLATELET COUNT 122 K/mm3 (130-400); RED BLOOD COUNT 2.93 M/mm3 (4.10-5.30); REDCELL DISTRIBUTION WIDTH-CV 24.7 % (11.5-14.5)
[2019-05-09 05:00] LABS: HEMATOCRIT 24.5 % (37.0-47.0); MEAN CORPUSCULAR HEMOGLOBIN 27 pg (27.0-31.0)
[2019-05-09 05:11] LABS: CALCIUM 7.7 mg/dL (8.4-10.2); CREATININE, serum 0.33 (0.52-1.25); POTASSIUM 3.2 mmol/L (3.4-5.0)
[2019-05-09 06:23] LABS: COLLECTION METHOD CLEAN CATCH
[2019-05-09 06:30] LABS: MUCOUS Present /lpf; PH 7 (5-8); URINE APPEARANCE Clear; URINE BACTERIA Rare /hpf; URINE BILIRUBIN Positive (NEGATIVE); URINE BLOOD Negative (NEGATIVE); URINE COLOR Amber; URINE GLUCOSE Negative (NEGATIVE); URINE KETONE Negative (NEGATIVE); URINE LEUKOCYTE ESTERASE 1+ (NEGATIVE); URINE NITRATE Negative (NEGATIVE); URINE PROTEIN(semi-quant) Negative (NEGATIVE); URINE UROBILINOGEN >=4.0 mg/dL (NEGATIVE)
[2019-05-09 06:53] LABS: TRICYCLIC ANTIDEPRESS URINE NEGATIVE
--- NOTE | 2019-05-09 08:00 | NUR ---
Shift assessment complete at this time. Plan of care reviewed at bedside with patient. Additional time taken to address any other needs or concerns. Vitals stable at this time. Pt reports mild to moderate abdominal pain that ranges from 4 to 7 out of 10. Pt receiving PRN Dilaudid for pain relief. Bed in low position, call light within reach, will continue to monitor.
[2019-05-09 08:45] LABS: GASTROCCULT NEGATIVE; pH GASTRIC CONTENTS 3
--- NOTE | 2019-05-09 11:59 | NUR ---
Attempted to call report to medical RN Lawanda nurse busy and will attempt to call back in 15 minutes.
--- NOTE | 2019-05-09 14:00 | NUR ---
Pt up to room 305, from ICU. Pt is A&O, independent in room. Pt rating abdominal pain 09/16, administered [place], PRN per MAY. Pt has RFA IV w/ NS and potassium running w/o complications. Per pt, potassium has been burning and they have slowed the rate to 50mls/hr. Currently running w/o complications. LS cta, HR tachy, on tele, on room air, breathing even and unlabored. BLE 1-2+ noted. No other concerns at this time. Pt educated on pain medication and frequency. Call light within reach.
--- NOTE | 2019-05-09 15:55 | NUR ---
Pt states pain is still /10 and the one tab of [place] isn't working very well. Administered 1 more tab of [place] per MAY. Pt also requesting zofran, would like to eat lunch, doesn't want "to be nauseous". Pt scored on detox scale, d/t elevated HR and mild anxiety, received 0.5mg ativan. Attempted to redress IV site, IV came out. New IV site attempted, unsuccessful, having charge nurse take a look. No other concerns at this time.
--- NOTE | 2019-05-09 17:09 | NUR ---
New IV started in LFA, 22G, fluids restarted w/o complications. Tele has called 2-3 times in regards to pt tele signal not coming through. New stickers and battery have all been replaced. Pt has been checked on multiple times.
--- NOTE | 2019-05-09 19:45 | NUR ---
ASSESSMENT COMPLETE. RESTING IN BED. C/O LOW ABD PAIN. REQUESTS PAIN MEDICATION. DENIES NAUSEA. DENIES OTHER NEEDS AT THIS TIME.
--- NOTE | 2019-05-09 22:15 | NUR ---
PT REQUESTS IVF BE DISCONNECTED. STATES THAT SHE IS "REFUSING" IVF AT THIS TIME BECAUSE IT IS DIFFICULT TO GET TO THE BATHROOM WITH THE IV ATTACHED.
[2019-05-10] VITALS (14 sets, daily range): BP systolic 101–135; BP diastolic 42–77; PULSE 108–127; TEMP 97.4–99.1
[2019-05-10 06:31] LABS: BASO % 0.1 % (0.0-2.0); EOS # 0.1 (0.0-0.7); EOS % 0.7 % (0-4.0); GRAN % 56.7 % (42.2-75.2); LYMPH # 2.2 (1.2-3.4); LYMPH % 31.3 % (20.0-51.0); MEAN CELL VOLUME 86 fl (80.0-100.0); MEAN CORPUSCULAR HGB CONC 32 g/dl (33.0-37.0); MONO # 0.8 (0.1-0.6); MONO % 10.6 % (1.7-9.3); PLATELET COUNT 126 K/mm3 (130-400); RED BLOOD COUNT 2.78 M/mm3 (4.10-5.30); REDCELL DISTRIBUTION WIDTH-CV 24.4 % (11.5-14.5)
[2019-05-10 06:39] LABS: HEMATOCRIT 23.8 % (37.0-47.0); HEMOGLOBIN 7.7 g/dl (12.5-16.0); MEAN CORPUSCULAR HEMOGLOBIN 28 pg (27.0-31.0)
[2019-05-10 06:43] LABS: INR 2.3 (0.8-3.0); PROTHROMBIN TIME 27.8 SECONDS (9.7-12.8)
[2019-05-10 06:48] LABS: ALBUMIN 2.5 gm/dL (3.5-5.0); BILIRUBIN,TOTAL 6.6 mg/dL (0.0-1.0); CALCIUM 8.2 mg/dL (8.4-10.2); CREATININE, serum 0.33 (0.52-1.25); MAGNESIUM 1.4 mg/dL (1.6-2.3); POTASSIUM 3.2 mmol/L (3.4-5.0); TOTAL PROTEIN 6.5 gm/dL (6.4-8.2)
--- NOTE | 2019-05-10 10:18 | NUR ---
Pt assessment completed and charted. Pt finishing up shower upon entry. Pt states she is having "severe abdominal pain" rating it 7/10 if she tries to do anything. Pain is located in lower abdomen, radiating to RLQ. Pt states she "hasn't seen a doctor since she has been here". Pt was seen by Dr. Jones in ICU before arriving to floor yesterday afternoon. Rounds were attempted this morning but pt was in shower, hospitalist will be back around to assess pt. Pt states she is "not receiving enough pain medication for this pain". Pain medication plan was discussed prior to coming to floor, from switching from Dilaudid to [place]. Pt refused IVF and aldactone this morning, states she "already has to get up and pee and it hurts". Per pt, she has had some diarrhea and vomiting, this nurse has not witnessed anything. Pt states she is nauseous, will check when pt can receive zofran again. Administered PRN [place] per MAY. Pt on room air, breathing is even and unlabored, tele in place, HR tachy. BLE edema 2+ noted. Discussed w/ pt about receiving oral potassium instead of IV, asked if she thought she could tolerate it, pt stated she could. No other concerns at this time.
--- NOTE | 2019-05-10 10:55 | NUR ---
China Decorator met with patient to discuss discharge planning. Patient expressed frustration with care and reports her pain is not controlled at this time. Patient reports she could basically be doing what she's doing here at home. Patient reports she still lives with her boyfriend Sandi (ph#[phone]) and her child in [place]. Patient states her primary care physician is Dr. Morgan and she obtains medications from [facility]. SW followed up with patient on [facility] as last time she was admitted she reported she had a Medicaid application at home that she was working on. Patient states she's made no progress towards completing application. SW offered to contact [employer] for assistance but patient declines and states she does not want to deal with it today as she already has enough to deal with. SW spoke with patient about her alcohol relapse. Patient states she was in pain and started to drink again to cope. SW asked patient if she was aware of local AA meetings and offered to provide list. Patient declines and states she does not believe in AA. Patient reports at some point she may look into therapy at [facility]. SW provided information of [place]'s intake process and also advised they may be able to do a sliding fee scale for cost of services. Patient plans to return home upon discharge. ROC collaborated with [employer] who advised he has attempted multiple times to assist with Medicaid and Financial Assistance Application but patient is non compliant. SW to continue to follow.
--- NOTE | 2019-05-10 10:59 | NUR ---
Hospitalist and pharmacist rounded on pt. Pt then called out to nursing station requesting to see her nurse. Upon entry, pt stated that she "wasn't able to ask any questions when the dr came in. The pain medication is not enough". This nurse discussed w/ pt about POC, frequency of pain medication and her condition. Pt stated she could "be doing this at home for free if she isn't going to get more pain medication". This nurse discussed w/ hospitalist who reiterated POC. Pt then stated she "would just rather go home then". Hospitalist will go back in to talk with patient.
--- NOTE | 2019-05-10 11:58 | NUR ---
Hospitalist in to visit with patient who now states she "doesn't want to go home". Pain medication regimen and pt condition was discussed in detail. PRN [place] d/c, pt verbalized understanding. Pt asked when she could "have her ativan". This nurse communicated that ativan wasn't a PRN medication. Pt seems uninterested and frustrated. Pt laying in bed w/ lights off. Informed to call if there were any concerns or needs. Call light within reach.
--- NOTE | 2019-05-10 16:31 | NUR ---
This nurse checked on pt to see if she had any questions or needed anything, pt denied needs at this time. MYCHAL Guillaume then approached this nurse and said pt was requesting to see me, wanted something for nausea and was "freezing" but refused warm blanket that was offered to her. This nurse administered zofran, asked again if a warm blanket was needed, pt stated "no I am tired of being tied up in things". Pt then asked if Psych was in house. This nurse asked if pt currently sees anyone or would like for the hospitalist to set anything up, pt shook her head and declined. Pt appears uninterested in cares, minimal conversation.
--- NOTE | 2019-05-10 16:43 | NUR ---
Pt called out for nurse, pt sitting on EOB, states she "started having some chest pain a few minutes ago" under her left breast and some dizziness. Set of VSS obtained at 1553 for CIWA protocol and again at this time. Minimal change. Hospitalist aware, ordering one time dose of protonix.
--- NOTE | 2019-05-10 17:35 | NUR ---
Pt pressed call light, this nurse entered room, pt asked if there was anything we were going to do. One shyam eorder for GI Cocktail placed, pt stated "for chest pain?". Pt then got teary eyed. After taking GI Cocktail, pt then asked if there was "a muscle relaxer or ativan" that she could get, she has "been clenched up all day". Will discuss with hospitalist and cafe manager nurse.
[2019-05-11] VITALS (10 sets, daily range): BP systolic 94–131; BP diastolic 41–61; PULSE 87–132; TEMP 97.7–99.4
--- NOTE | 2019-05-11 03:20 | NUR ---
@200 ML BLOODY APPEARING GELATIOUS STOOL. PT REPORTS THIS IS HER FIRST BLOODY STOOL DURING THIS HOSPITALIZATION. SPECIMEN TO LAB.
[2019-05-11 03:49] LABS: BASO % 0.1 % (0.0-2.0); EOS % 0.4 % (0-4.0); GRAN # 4.2 (1.4-6.5); GRAN % 59.2 % (42.2-75.2); HEMATOCRIT 23.1 % (37.0-47.0); HEMOGLOBIN 7.5 g/dl (12.5-16.0); LYMPH # 2.1 (1.2-3.4); LYMPH % 28.7 % (20.0-51.0); MEAN CELL VOLUME 84 fl (80.0-100.0); MEAN CORPUSCULAR HEMOGLOBIN 27 pg (27.0-31.0); MEAN CORPUSCULAR HGB CONC 33 g/dl (33.0-37.0); MONO # 0.8 (0.1-0.6); MONO % 11.3 % (1.7-9.3); PLATELET COUNT 88 K/mm3 (130-400); RED BLOOD COUNT 2.75 M/mm3 (4.10-5.30)
[2019-05-11 03:53] LABS: INR 2.6 (0.8-3.0); PROTHROMBIN TIME 31.7 SECONDS (9.7-12.8)
[2019-05-11 03:59] LABS: ALBUMIN 2.4 gm/dL (3.5-5.0); BILIRUBIN,TOTAL 6.6 mg/dL (0.0-1.0); CALCIUM 8.3 mg/dL (8.4-10.2); CREATININE, serum 0.33 (0.52-1.25); POTASSIUM 3.6 mmol/L (3.4-5.0); TOTAL PROTEIN 6.3 gm/dL (6.4-8.2)
[2019-05-11 06:00] LABS: HEMATOCRIT 23.3 % (37.0-47.0); HEMOGLOBIN 7.4 g/dl (12.5-16.0)
--- NOTE | 2019-05-11 09:03 | NUR ---
Pt assessment completed and charted. Pt refused all medications this morning, states she is nauseous and "doesn't want to further upset her stomach". Pt did agree to take PO Vanc, tolerated ok. Dr. Mazariegos in for consult this morning. Pt asking about pain medication, stated Dr. Mazariegos "told her to her face that he was going to give her pain medication". No pain medication ordered, doctor note reviewed, no mention of pain medication, only recommendation was PO Vanc for Cdiff. Explained to pt this nurse would discuss w/ hospitalist POC. Pt had small BM, bright red and small amount of stool present in hat. Informed the pt we would not flush until hospitalist was able to see pt and assess. Pt denies other needs at this time. Currently on cdiff precautions.
--- NOTE | 2019-05-11 12:28 | NUR ---
Pt requesting zofran. Pt was compliant w/ taking carafate and PO vanc. Discussed w/ pt that Dr. Mazariegos had not ordered any pain meds. Awaiting hospitalist rounds.
--- NOTE | 2019-05-11 12:38 | NUR ---
Pt to have K+ replaced this morning. Pt has been refusing most medications, this nurse asked pt if she would be willing to take it, pt refused, no order has been placed at this time.
--- NOTE | 2019-05-11 14:03 | NUR ---
Pt cdiff results discussed w/ Mariela and pharmacy. GI panel positive for gene, stool sample negative for cdiff. Chalino gordon.
--- NOTE | 2019-05-11 15:07 | NUR ---
Attempted to call Dr. Mazariegos to update him on pt and cdiff results and possible endoscopy. Will call again.
[2019-05-11 16:31] LABS: HEMATOCRIT 26.2 % (37.0-47.0); HEMOGLOBIN 8.5 g/dl (12.5-16.0)
--- NOTE | 2019-05-11 16:31 | NUR ---
1615: In pt room to administer Magnesium. Pt sitting in bed, asks "what is the plan? The PA was in here and said she would be back, it's been 2 hours. I want to eat and I want some fng pain meds. I have been here since Friday I think, what are we doing". KAYA Hansen was notified of pt concerns and will go speak with pt. Dr. Mazariegos was reached and informed of Cdiff results, currently visiting with another pt and will visit with Madeleine when finished.
--- NOTE | 2019-05-11 17:38 | NUR ---
EGD planned for morning, pt aware. Will have consent signed by morning. Pt requested ativan, administered per MAY.
--- NOTE | 2019-05-11 20:00 | NUR ---
Recieved report from LARS Tena. Assessment complete. Alert and oriented.Ambulatory, independent. Denies any pain. C/O abdominal comfort. Pt refused ordered scheduled meds. Pt only willing to take meds in preparation for colonoscopy procedure tmrw. Consent signed by pt. Miralax prepped for pt and verbalized understanding to consume all throughout the night. INT to LFA intact, flushed, dressing CDI. Tele monitor in place, leads checked. Needs met. Call light within reach.
[2019-05-12] VITALS (7 sets, daily range): BP systolic 99–121; BP diastolic 34–51; PULSE 106–116; TEMP 98–99.4
--- NOTE | 2019-05-12 01:13 | NUR ---
Pt consumed entire miralax prep. Pt requested zofran for nausea. PRN zofran administered as requested. needs met. Call light within reach.
--- NOTE | 2019-05-12 05:46 | NUR ---
Pt requested prn zofran, administered as requested. Preop NS fluids started infusing at 30ml/hr. Needs met. Call light within reach.
[2019-05-12 06:04] LABS: BASO % 0.2 % (0.0-2.0); EOS % 0.3 % (0-4.0); GRAN # 3.5 (1.4-6.5); GRAN % 58.7 % (42.2-75.2); LYMPH # 1.7 (1.2-3.4); LYMPH % 28.7 % (20.0-51.0); MEAN CELL VOLUME 86 fl (80.0-100.0); MEAN CORPUSCULAR HGB CONC 32 g/dl (33.0-37.0); MONO # 0.7 (0.1-0.6); MONO % 11.8 % (1.7-9.3); PLATELET COUNT 105 K/mm3 (130-400); RED BLOOD COUNT 2.63 M/mm3 (4.10-5.30); REDCELL DISTRIBUTION WIDTH-CV 24.5 % (11.5-14.5)
[2019-05-12 06:13] LABS: HEMATOCRIT 22.5 % (37.0-47.0); HEMOGLOBIN 7.1 g/dl (12.5-16.0); INR 2.6 (0.8-3.0); MEAN CORPUSCULAR HEMOGLOBIN 27 pg (27.0-31.0); PROTHROMBIN TIME 31.1 SECONDS (9.7-12.8)
[2019-05-12 06:17] LABS: ALANINE AMINOTRANSFERASE 49 U/L (9-52); ALBUMIN 2.4 gm/dL (3.5-5.0); ALKALINE PHOSPHATASE 134 U/L (50-136); ANION GAP 7 mmol/L (7-16); AST,SGOT 161 U/L (15-37); BILIRUBIN,TOTAL 6.7 mg/dL (0.0-1.0); CALCIUM 8.2 mg/dL (8.4-10.2); CARBON DIOXIDE 24 mmol/L (22-30); CHLORIDE 105 mmol/L (98-107); CREATININE, serum 0.34 (0.52-1.25); GLUCOSE 71 mg/dL (74-106); MAGNESIUM 1.6 mg/dL (1.6-2.3); POTASSIUM 3.3 mmol/L (3.4-5.0); SODIUM 136 mmol/L (137-145)
[2019-05-12 06:20] LABS: BLOOD UREA NITROGEN < 2 mg/dL (7-17)
--- NOTE | 2019-05-12 06:58 | NUR ---
Report given to LARS Snell.
[2019-05-12] MEDS ORDERED: ATIVAN 0.50.5 MG/TAB PO (21:50)
--- NOTE | 2019-05-12 21:52 | NUR ---
PT IN BED COMPLAINING OF PAIN 7/10 IN R SIDE. PT ASKING WHY SHE CANNOT HAVE NARCOTICS, IT WAS EXPLAINED THAT SHE COULD NOT DUE TO NOT BEING ABLE TO GET ON THE ORGAN TRANSPLANT LIST WHILE BEING ON NARCOTICS. BENTYL GIVEN, NO PAIN RELIEF.
--- NOTE | 2019-05-12 21:55 | NUR ---
PT WANTING TO LEAVE AMA NOW. MAIL ORDER CLERK CALLED, CLARICE HOSPITALIST NOTIFIED, CLARICE WANTING TO TALK TO PT SO SHE CAME UP. FILLED OUT AMA FORM.
--- NOTE | 2019-05-12 22:02 | NUR ---
PIG FURNACE OPERATOR HAD BEEN TO VISIT W/ PT. PT SIGNED AMA FORM, IV D/C'D. BOYFRIEND GRABBED BELONGINGS. PT AND BOYFRIEND ESCORTED OUT BY [facility] [employer].
== END 2019-05-12 22:02 | disposition left against medical advice (07) | DRG 392 ==
LOC: COL.ER 20:48 → ICU 23:20 → MEDICAL 23:20
PROVIDERS: Emergency Medicine; Internal Medicine; Internal Medicine Gastroenterology; Nurse Practitioner Family; Physician Assistant; ADMIT Student in an Organized Health Care Education/Training Program
PROC: 0DBE8ZX Excision of Large Intestine, Via Natural or Artificial Opening Endoscopic, Diagnostic (ICD-10-PCS; principal; 2019-05-12 08:30)
DX: K29.70 Gastritis, unspecified, without bleeding (principal); E87.2 Acidosis; F10.14 Alcohol abuse with alcohol-induced mood disorder; R65.10 Systemic inflammatory response syndrome (SIRS) of non-infectious origin without acute organ dysfunction; K76.6 Portal hypertension; K70.10 Alcoholic hepatitis without ascites; K72.10 Chronic hepatic failure without coma; K21.9 Gastro-esophageal reflux disease without esophagitis; K64.4 Residual hemorrhoidal skin tags; E83.42 Hypomagnesemia; E88.09 Other disorders of plasma-protein metabolism, not elsewhere classified; G89.29 Other chronic pain; K44.9 Diaphragmatic hernia without obstruction or gangrene; F41.9 Anxiety disorder, unspecified; M54.9 Dorsalgia, unspecified; Y90.8 Blood alcohol level of 240 mg/100 ml or more; M79.606 Pain in leg, unspecified; F32.9 Major depressive disorder, single episode, unspecified; F17.210 Nicotine dependence, cigarettes, uncomplicated; E87.6 Hypokalemia; K64.8 Other hemorrhoids; Z22.322 Carrier or suspected carrier of Methicillin resistant Staphylococcus aureus; Z88.5 Allergy status to narcotic agent
CPT/HCPCS: 99223-AI; 99231-AI; 99232-AI; 99239; A4216; C9113; J0696; J1170; J1630; J2060; J2405; J2704; J2765; J3010; J3475; J3480; J7030; Q9967

== ENCOUNTER 2019-05-13 23:11 | Emergency (ER) | payer SELFPAY ==
[~2019-05-13] VITALS: Ht 172.7 cm; Wt 86.4 kg
[~2019-05-13 23:11] MED LIST changes: +ATIVAN 0.50.5 MG/TAB PO
[2019-05-13 23:24] VITALS: BP 112/63; PULSE 109; TEMP 98.5
[2019-05-14 00:15] LABS: ANION GAP 13 mmol/L (7-16); BLOOD UREA NITROGEN < 2 mg/dL (7-17); CALCIUM 8.1 mg/dL (8.4-10.2); CARBON DIOXIDE 24 mmol/L (22-30); CHLORIDE 102 mmol/L (98-107); GLUCOSE 150 mg/dL (74-106); SODIUM 138 mmol/L (137-145)
[2019-05-14 00:16] LABS: POTASSIUM 2.6 mmol/L (3.4-5.0)
[2019-05-14 00:17] LABS: BASO % 0.3 % (0.0-2.0); EOS % 0.3 % (0-4.0); GRAN # 5.2 (1.4-6.5); GRAN % 55.3 % (42.2-75.2); LYMPH # 2.5 (1.2-3.4); LYMPH % 27.1 % (20.0-51.0); MEAN CELL VOLUME 83 fl (80.0-100.0); MEAN CORPUSCULAR HGB CONC 33 g/dl (33.0-37.0); MONO # 1.6 (0.1-0.6); MONO % 16.6 % (1.7-9.3); PLATELET COUNT 127 K/mm3 (130-400); RED BLOOD COUNT 2.87 M/mm3 (4.10-5.30); REDCELL DISTRIBUTION WIDTH-CV 24.4 % (11.5-14.5)
[2019-05-14 00:18] LABS: HEMATOCRIT 23.7 % (37.0-47.0); HEMOGLOBIN 7.9 g/dl (12.5-16.0); MEAN CORPUSCULAR HEMOGLOBIN 28 pg (27.0-31.0)
[2019-05-15] MEDS ORDERED: ANUSOL-HC SUPPO25 MG RC (11:36)
== END 2019-05-14 01:49 | disposition left against medical advice (07) ==
LOC: COL.ER 23:11
PROVIDERS: Emergency Medicine
DX: S99.912A Unspecified injury of left ankle, initial encounter (principal); E87.6 Hypokalemia; D64.9 Anemia, unspecified; F10.229 Alcohol dependence with intoxication, unspecified; R40.2412 Glasgow coma scale score 13-15, at arrival to emergency department; W01.0XXA Fall on same level from slipping, tripping and stumbling without subsequent striking against object, initial encounter; Y92.009 Unspecified place in unspecified non-institutional (private) residence as the place of occurrence of the external cause

== ENCOUNTER 2019-05-14 15:04 | Emergency (ER) | payer SELFPAY ==
[~2019-05-14] VITALS: Ht 172.7 cm; Wt 86.4 kg
[2019-05-14 15:21] VITALS: PULSE 108; TEMP 98.6
[2019-05-14 16:07] LABS: MEAN CELL VOLUME 84 fl (80.0-100.0); MEAN CORPUSCULAR HGB CONC 33 g/dl (33.0-37.0); MEAN PLATELET VOLUME 10.2 fl (7.4-10.4); PLATELET COUNT 130 K/mm3 (130-400); RED BLOOD COUNT 2.79 M/mm3 (4.10-5.30)
[2019-05-14 16:14] LABS: HEMATOCRIT 23.4 % (37.0-47.0); HEMOGLOBIN 7.6 g/dl (12.5-16.0); MEAN CORPUSCULAR HEMOGLOBIN 27 pg (27.0-31.0)
[2019-05-14 16:26] LABS: ALANINE AMINOTRANSFERASE 54 U/L (9-52); ALBUMIN 2.9 gm/dL (3.5-5.0); ALCOHOL(ethanol),MEDICAL 213 mg/dL; ALKALINE PHOSPHATASE 185 U/L (50-136); ANION GAP 13 mmol/L (7-16); AST,SGOT 197 U/L (15-37); BILIRUBIN,TOTAL 6.3 mg/dL (0.0-1.0); C-REACTIVE PROTEIN 4.7 mg/dL (0.0-0.9); CALCIUM 8.5 mg/dL (8.4-10.2); CARBON DIOXIDE 23 mmol/L (22-30); CHLORIDE 104 mmol/L (98-107); CREATININE, serum 0.37 (0.52-1.25); GLUCOSE 135 mg/dL (74-106); LIPASE 115 U/L (23-300); SODIUM 140 mmol/L (137-145); TOTAL PROTEIN 7.1 gm/dL (6.4-8.2)
[2019-05-14 16:27] LABS: BLOOD UREA NITROGEN < 2 mg/dL (7-17)
[2019-05-14 16:28] LABS: POTASSIUM 2.8 mmol/L (3.4-5.0)
[2019-05-14 16:33] LABS: ANISOCYTOSIS 3+; BAND 1 % (0-10); LYMPHOCYTE 25 % (20.0-51.0); NEUTROPHILS 65 % (42.0-75.2)
[2019-05-14 16:34] LABS: OVALOCYTES 1+; POIKILOCYTOSIS 3+; TARGET CELLS 2+
[2019-05-14 16:35] LABS: MICROCYTOSIS 1+; PLATELET ESTIMATE DECREASED (NORMAL)
--- NOTE | 2019-05-14 16:35 | NUR ---
JANEL palomares responded to the ED for a social service assistant consult for the patient due to alcohol use. JANEL palomares met with the patient to discuss this matter. The patient is not interested in detox or treatment for alcohol use at this time. She would like to get her pain under control first. The patient states that her PCP, Dr. Morgan is in the process of referring her to a pain specialist in [place]. JANEL palomares to contact the PCP on Friday, 05/16 to get an update on the status of the referral. JANEL palomares collaborated the above information with the ED physician.
[2019-05-15] MEDS ORDERED: ANUSOL-HC SUPPO25 MG RC (11:36)
== END 2019-05-14 16:43 | disposition left against medical advice (07) ==
LOC: COL.ER 15:04
PROVIDERS: Emergency Medicine
DX: K70.10 Alcoholic hepatitis without ascites (principal); K70.30 Alcoholic cirrhosis of liver without ascites; D64.9 Anemia, unspecified; E87.6 Hypokalemia
CPT/HCPCS: J0780; J7050

== ENCOUNTER 2019-05-14 21:10 | Observation (INO) | payer SELFPAY ==
[~2019-05-14] VITALS: Ht 172.7 cm; Wt 86.4 kg
[2019-05-14 23:03] LABS: MEAN CELL VOLUME 81 fl (80.0-100.0); MEAN CORPUSCULAR HGB CONC 34 g/dl (33.0-37.0); PLATELET COUNT 121 K/mm3 (130-400); RED BLOOD COUNT 2.96 M/mm3 (4.10-5.30); REDCELL DISTRIBUTION WIDTH-CV 24.6 % (11.5-14.5)
[2019-05-14 23:04] LABS: HEMOGLOBIN 8.1 g/dl (12.5-16.0); MEAN CORPUSCULAR HEMOGLOBIN 27 pg (27.0-31.0)
[2019-05-14 23:27] LABS: BAND 3 % (0-10); LYMPHOCYTE 29 % (20.0-51.0); NEUTROPHILS 55 % (42.0-75.2)
[2019-05-14 23:29] LABS: OVALOCYTES 1+
[2019-05-14 23:54] LABS: ANION GAP 12 mmol/L (7-16); CALCIUM 8.3 mg/dL (8.4-10.2); CARBON DIOXIDE 23 mmol/L (22-30); CHLORIDE 104 mmol/L (98-107); CREATININE, serum 0.34 (0.52-1.25); GLUCOSE 135 mg/dL (74-106); POTASSIUM 3.1 mmol/L (3.4-5.0); SODIUM 139 mmol/L (137-145)
[2019-05-14 23:55] LABS: BLOOD UREA NITROGEN < 2 mg/dL (7-17)
[2019-05-15] VITALS (7 sets, daily range): BP systolic 95–130; BP diastolic 34–66; PULSE 99–112; TEMP 96.8–99.1
--- NOTE | 2019-05-15 00:43 | NUR ---
PT admitted to medical unit from ED for abdominal pain secondary to liver failure with ascites. PT presents to unit denying pain at this time after being given dilaudid in ED and no c/o N/V after given anti-emetic in ED. PT is alert but drowsy and is able to participate in assessment and med reconciliation. PT has an IV placed in ED in Left AC that this screen writer wraps with robbin-wrap to help secure in place that flushes easily with no complaints of pain or discomfort. PT has noted jaundice to whites of eyes and reports that she contnues to use ETOH at home although she states that she has tried to quit drinking but has not been successfull yet. PT is able to ambulate without assistance and is noted to have a slow purposeful gait. PT educated on I&O and this screen writer places a toilet hat in toilet and how to use call light. PT reports that she is feeling better than she did earlier and is feeling like she will be able to fall asleep. PT has noted ascites but abdomen is more soft than firm and hard. PT denies pain or discomfort with pressure applied to abdmonen to auscultate bowel sounds. Pt oriented to room and has call light at her side and bedside table at the side of bed with glass of ice water within reach as well as her cell phone. PT states understanding of all education provided and is resting peacefully at this time with eyes closed.
--- NOTE | 2019-05-15 03:02 | NUR ---
PT is resting in bed with eyes closed and is easily aroused when vital signs are obtained and detox protocol is performed. PT presents with no s/s of distress noted. Will continue to monitor.
--- NOTE | 2019-05-15 04:26 | NUR ---
PT resting peacefully in bed with eyes closed and when spoken to opens her eyes and communicates clearly and appropriately. This software writer changed PT's BP cuff to one size smaller and it is noted that the smaller cuff fits more appropriately. PT reports that she is having some increased pain and rates pain as 6/10 at abdomen and describes pain as "sharp". No s/s of distress noted. After assessments completed PT closes her eyes and appears to be resting peacefully as this software writer charts VS and Detox Assessment in room. Call light remains within reach. Will continue to monitor.
--- NOTE | 2019-05-15 06:30 | NUR ---
PT assisted to bathroom to void with 125ml of strong smelling, dark, enedina-bili looking urine noted. PT returns to bed with no complaints or wants/needs at this time. Call light within reach. Will continue to monitor. PT had requested a glass of ice water after admission assessment and this instructional writer notes that she has not drank any of it during the night. PT replies that she was sleeping "really good".
--- NOTE | 2019-05-15 06:56 | NUR ---
Report given to Joaquina SOUSA at bedside. PT is awake and this data analyst report writer introduces PT to dayshift nurses and ensures that PT will be well taken care of. PT seems appreciated and appears to be getting ready to fall back asleep.
--- NOTE | 2019-05-15 08:46 | NUR ---
Pt assessment complete. Pt is laying in bed upon entry, she is A/O x4. Her breathing is even and unlabored on RA. Pt denies SOB. Currently reports RUQ pain 8/10, also reports nausea. PRN Zofran administered. POC discussed with patient who is aware. IVF infusing without complications. No needs at this time.
[2019-05-15] MEDS ORDERED: ANUSOL-HC SUPPO25 MG RC (11:36)
--- NOTE | 2019-05-15 11:40 | NUR ---
Plan: Patient plans to return home with as care support Russell . Assess: Met with patient about DC and care. Patient reports that her PCP is Anne Lenzt. No [facility] with [facility], Patient denies any DME use. Patient reports that [facility] on [address] is preferred. Patient reports that she does not have a DPOA.Patient denies needing any addtional support. Action: Educated on community services. Nothing further.
--- NOTE | 2019-05-15 12:02 | NUR ---
Discharge paperwork and instructions reviewed with patient. All questions answered at this time. IV to LAC dc'd catheter tip intact. Pt walked out of facility at this time.
--- NOTE | 2019-05-17 10:48 | NUR ---
TRAINING ADMINISTRATOR student completed an APS report (report # [id number]) and a CPS report (report # [id number]). For the patient due to numerous times leaving against medical advice from the ED and the floor and her alcohol and narcotics dependency.
== END 2019-05-15 12:07 | disposition home or self-care (01) ==
LOC: COL.ER 21:10 → MEDICAL 22:57
PROVIDERS: Emergency Medicine; ADMIT Student in an Organized Health Care Education/Training Program
DX: K70.10 Alcoholic hepatitis without ascites (principal); F10.10 Alcohol abuse, uncomplicated; G89.29 Other chronic pain; R10.9 Unspecified abdominal pain; M54.9 Dorsalgia, unspecified; K64.8 Other hemorrhoids; K92.1 Melena; E87.6 Hypokalemia; Z88.5 Allergy status to narcotic agent; K21.9 Gastro-esophageal reflux disease without esophagitis; Z87.891 Personal history of nicotine dependence
CPT/HCPCS: G0378; J1170; J1790; J2405; J7030

== ENCOUNTER 2019-05-18 01:43 | Emergency (ER) | payer SELFPAY ==
[~2019-05-18] VITALS: Ht 172.7 cm; Wt 86.4 kg
[~2019-05-18 01:43] MED LIST changes: +ANUSOL-HC SUPPO25 MG RC
[2019-05-18 01:47] VITALS: BP 114/55; PULSE 101; TEMP 97.3
[2019-05-18] MEDS ORDERED: LAMICTAL 25MG T25 MG PO (02:32)
--- NOTE | 2019-05-18 09:24 | NUR ---
ON SITE COORDINATOR student received a geriatric social work professor consult for the patient and the patient's boyfriend, Sandi Sánchez. The both came to the ED intoxicated with their child in the auto emissions technician on this day. Mr. Sánchez's sister drove them. See Dr. Lynch's note and nurses note for further inforamtion. ON SITE COORDINATOR student made two CPS reports, one for the patient and one for Mr. Sánchez. CPS # [id number], # [id number] respectively.
== END 2019-05-18 02:30 | disposition home or self-care (01) ==
LOC: COL.ER 01:43
DX: M79.632 Pain in left forearm (principal); F10.229 Alcohol dependence with intoxication, unspecified

== ENCOUNTER 2019-05-18 16:21 | Emergency (ER) | payer SELFPAY ==
[~2019-05-18] VITALS: Ht 172.7 cm; Wt 86.4 kg
[~2019-05-18 16:21] MED LIST changes: +LAMICTAL 25MG T25 MG PO
[2019-05-18 16:23] VITALS: BP 96/70; PULSE 102
--- NOTE | 2019-05-18 16:44 | NUR ---
retail salesworker met with patient as patient presents for the second time this date. Patient states that her sister is watching her children. Worker offered assistance with treatment and patient told worker to "get out". Annabella social media executive filed a CPS [id number] report and filed reports today [id number].
== END 2019-05-18 17:10 | disposition left against medical advice (07) ==
LOC: COL.ER 16:21
DX: R10.11 Right upper quadrant pain (principal); G89.29 Other chronic pain; F10.20 Alcohol dependence, uncomplicated; Z87.19 Personal history of other diseases of the digestive system

== ENCOUNTER 2019-05-18 22:00 | Emergency (ER) | payer SELFPAY ==
[~2019-05-18] VITALS: Ht 172.7 cm; Wt 86.4 kg
[2019-05-18 22:05] VITALS: BP 101/46; PULSE 109; TEMP 97.3
[2019-05-18 23:12] LABS: MEAN CELL VOLUME 85 fl (80.0-100.0); MEAN CORPUSCULAR HGB CONC 33 g/dl (33.0-37.0); MEAN PLATELET VOLUME 10.1 fl (7.4-10.4); PLATELET COUNT 211 K/mm3 (130-400); RED BLOOD COUNT 3.02 M/mm3 (4.10-5.30); REDCELL DISTRIBUTION WIDTH-CV 26.3 % (11.5-14.5)
[2019-05-18 23:13] LABS: HEMATOCRIT 25.7 % (37.0-47.0); HEMOGLOBIN 8.4 g/dl (12.5-16.0); MEAN CORPUSCULAR HEMOGLOBIN 28 pg (27.0-31.0)
[2019-05-18 23:20] LABS: INR 2.5 (0.8-3.0)
[2019-05-18 23:22] LABS: PARTIAL THROMBOPLASTIN TIME 56.1 SECONDS (26.0-37.0)
[2019-05-18 23:23] LABS: ALANINE AMINOTRANSFERASE 48 U/L (4-34); ALBUMIN 2.8 gm/dL (3.5-5.0); ALKALINE PHOSPHATASE 192 U/L (50-136); ANION GAP 14 mmol/L (7-16); AST,SGOT 233 U/L (15-37); BLOOD UREA NITROGEN 3 mg/dL (7-17); CALCIUM 8.2 mg/dL (8.4-10.2); CARBON DIOXIDE 23 mmol/L (22-30); CHLORIDE 105 mmol/L (98-107); CREATININE, serum 0.34 (0.52-1.25); GLUCOSE 133 mg/dL (74-106); PHOSPHOROUS 4.5 mg/dL (2.5-4.5); POTASSIUM 3.4 mmol/L (3.4-5.0); SODIUM 142 mmol/L (137-145)
[2019-05-18 23:30] LABS: ALCOHOL(ethanol),MEDICAL 373 mg/dL
[2019-05-18 23:35] LABS: TROPONIN-I < 0.012 ng/mL (0.000-0.035)
[2019-05-19 01:03] LABS: BAND 9 % (0-10); LYMPHOCYTE 23 % (20.0-51.0); NEUTROPHILS 57 % (42.0-75.2); TEAR DROP CELLS 1+
== END 2019-05-18 23:59 | disposition left against medical advice (07) ==
LOC: COL.ER 22:00
PROVIDERS: Emergency Medicine
DX: K70.30 Alcoholic cirrhosis of liver without ascites (principal); F10.129 Alcohol abuse with intoxication, unspecified; F17.210 Nicotine dependence, cigarettes, uncomplicated; Y90.8 Blood alcohol level of 240 mg/100 ml or more

== ENCOUNTER 2019-05-19 18:56 | Emergency (ER) | payer SELFPAY ==
[~2019-05-19] VITALS: Ht 172.7 cm; Wt 86.4 kg
[2019-05-19 18:59] VITALS: TEMP 97.4
[2019-05-19 19:57] LABS: MEAN CELL VOLUME 82 fl (80.0-100.0); MEAN CORPUSCULAR HGB CONC 34 g/dl (33.0-37.0); MEAN PLATELET VOLUME 10.2 fl (7.4-10.4); PLATELET COUNT 193 K/mm3 (130-400); RED BLOOD COUNT 2.93 M/mm3 (4.10-5.30); REDCELL DISTRIBUTION WIDTH-CV 24.6 % (11.5-14.5)
[2019-05-19 20:00] LABS: HEMOGLOBIN 8.1 g/dl (12.5-16.0); MEAN CORPUSCULAR HEMOGLOBIN 28 pg (27.0-31.0)
[2019-05-19 20:11] LABS: ALANINE AMINOTRANSFERASE 48 U/L (4-34); ALBUMIN 2.8 gm/dL (3.5-5.0); ALKALINE PHOSPHATASE 202 U/L (50-136); ANION GAP 15 mmol/L (7-16); AST,SGOT 245 U/L (15-37); BILIRUBIN,TOTAL 10.1 mg/dL (0.0-1.0); BLOOD UREA NITROGEN 3 mg/dL (7-17); CARBON DIOXIDE 22 mmol/L (22-30); CHLORIDE 105 mmol/L (98-107); CREATININE, serum 0.34 (0.52-1.25); GLUCOSE 144 mg/dL (74-106); SODIUM 142 mmol/L (137-145); TOTAL PROTEIN 7.2 gm/dL (6.4-8.2)
[2019-05-19 20:22] LABS: TROPONIN-I < 0.012 ng/mL (0.000-0.035)
[2019-05-19 20:23] LABS: ACETAMINOPHEN < 10 ug/mL (10-30); ALCOHOL(ethanol),MEDICAL 337 mg/dL; POTASSIUM 2.7 mmol/L (3.4-5.0); SALICYLATE < 1.0 mg/dL
[2019-05-19 20:32] LABS: BAND 2 % (0-10); LYMPHOCYTE 28 % (20.0-51.0); NEUTROPHILS 65 % (42.0-75.2)
[2019-05-19 20:34] LABS: ANISOCYTOSIS 3+; PLATELET ESTIMATE NORMAL (NORMAL)
[2019-05-19 20:38] LABS: TARGET CELLS 2+
[2019-05-19 20:40] LABS: SCHISTOCYTES 1+
[2019-05-19 20:41] LABS: OVALOCYTES 1+
[2019-05-19 23:55] VITALS: BP 124/64; PULSE 116
[2019-05-20 07:57] LABS: PATHOLOGY DIFF REVIEW OK
== END 2019-05-19 23:55 | disposition short-term general hospital (02) ==
LOC: COL.ER 18:56
PROVIDERS: Emergency Medicine
DX: K52.9 Noninfective gastroenteritis and colitis, unspecified (principal); K70.31 Alcoholic cirrhosis of liver with ascites; R45.851 Suicidal ideations; F10.129 Alcohol abuse with intoxication, unspecified
CPT/HCPCS: J1170; J2060; J2543; J7030; Q9967